=== PATIENT | male | born 1985 | race Hispanic/Latino ===

== ENCOUNTER 2016-10-22 15:34 | Inpatient (IN) | payer BC ==
[2016-10-22] MEDS ORDERED: Famotidine 20mg/50ml 20 MG/50 ML BAG IV STA (15:45)
[2016-10-22] MEDS ORDERED: Sodium Chloride 0.9% 1,000 ML IV STA (15:45)
[2016-10-22 15:49] VITALS: BMI 23.7
--- NOTE | 2016-10-22 16:03 | ED PDOC ---
Arrival/HPI <Mitesh Leslie - Last Filed: 10/22/16 19:41> - General Historian: Patient, Parent - History of Present Illness Time/Duration: Prior to Arrival Symptom Onset: Sudden Symptom Course: Unchanged Quality: Aching Severity Level: 9 Activities at Onset: Other (working) Context: Work <Shorty Leon - Last Filed: 10/22/16 22:08> - General Chief Complaint: Trauma Time Seen by Provider: 10/22/16 15:44 - History of Present Illness Narrative History of Present Illness (Text): 31 M with PMH of type 1 DM presents to ED for complaint of s/p fall. Patient was at work but doesn't remeber what specifically happened. As per patient and parents, patient was at work fell and hit his head. He did have LOC. Patient reports to this never happening before. He states that his headache rates 9-10/ 10 in severity. He described it as a constant throbbing pain in occipital region radiating to about c2 region. Nothing makes better or worse. Admits to nausea/vomiting. Denies fever/chills, cp, sob, palpitations, abd pain, diarrhea , constipation, incontinence, vertigo, dizziness/lightheadedness. PMD: None currently PMH: DM type 1 Meds: Insulin Allergy: Unknown PSH: denies Hosp: Denies FH: unknown Social: smokes tobacco daily, etoh occasionally, works at [employer] 10/22/16 18:01 (Shorty Leon) Past Medical History - Provider Review Nursing Documentation Reviewed: Yes - Travel History Have you recently traveled outside [place] w/in the past 3 mons?: No - Past History Past History: Unable to Obtain <Shorty Leon - Last Filed: 10/22/16 22:08> Family/Social History - Physician Review Nursing Documentation Reviewed: Yes Family/Social History: Unknown Family HX Smoking Status: Light Smoker < 10 Cigarettes Daily <Shorty Leon - Last Filed: 10/22/16 22:08> Allergies/Home Meds <Mitesh Leslie - Last Filed: 10/22/16 19:41> <Shorty Leon - Last Filed: 10/22/16 22:08> Allergies/Adverse Reactions: Allergies No Known Allergies Allergy (Verified 10/22/16 16:00) Home Medications: Home Meds Medication Instructions Recorded Confirmed Insulin Regular [HumuLIN R] 1 unit IJ 10/22/16 Insulin Human NPH [Humalin N] 25 units SC BID 10/22/16 10/22/16 Review of Systems - Review of Systems Constitutional: absent: Fatigue, Weight Change, Fevers, Night Sweats Eyes: absent: Vision Changes, Photophobia, Eye Pain, Other ENT: absent: Hearing Changes, Tinnitus, TMJ Pain, Sore Throat Respiratory: absent: SOB, Cough, Sputum, Wheezing Cardiovascular: Syncope. absent: Chest Pain, Palpitations, Calf Pain Gastrointestinal: Nausea, Vomiting, Hematemesis. absent: Abdominal Pain, Constipation, Diarrhea, Hematochezia, Food Intolerance Genitourinary Male: absent: Dysuria, Frequency, Hematuria Musculoskeletal: Arthralgias, Neck Pain. absent: Back Pain, Joint Swelling Skin: absent: Rash, Pruritis, Skin Lesions, Laceration Neurological: Headache. absent: Dizziness, Disequilibrium, Seizure Endocrine: Diaphoresis. absent: Polyuria, Polydipsia Hemo/Lymphatic: absent: Adenopathy, Easy Bleeding, Easy Bruising Psychiatric: absent: Anxiety, Depression, Suicidal Ideation <Shorty Leon - Last Filed: 10/22/16 22:08> Physical Exam <Mitesh Leslie - Last Filed: 10/22/16 19:41> Vital Signs Reviewed: Yes Temperature: Afebrile Blood Pressure: Hypertensive Pulse: Tachycardic Respiratory Rate: Normal Appearance: Positive for: Ill-Appearing, Uncomfortable Pain Distress: Moderate Mental Status: Positive for: Alert and Oriented X 3 - Systems Exam Head: Present: Normocephalic, Tenderness (occipital/neck) Pupils: Present: PERRL Extroacular Muscles: Present: EOMI Conjunctiva: Present: Normal Ears: Present: Normal Mouth: Present: Moist Mucous Membranes Pharnyx: Present: Normal Nose (External): Present: Atraumatic Neck: Present: MIDLINE TENDERNESS, Paraspinal Tenderness, Trachea Midline Respiratory/Chest: Present: Clear to Auscultation, Good Air Exchange Cardiovascular: Present: Normal S1, S2, Tachycardic Abdomen: Present: Normal Bowel Sounds. No: Tenderness, Distention, Peritoneal Signs, Rebound, Guarding Back: Present: Normal Inspection Upper Extremity: Present: NORMAL PULSES, Neurovascularly Intact, Capillary Refill < 2s Lower Extremity: Present: NORMAL PULSES, Neurovascularly Intact, Capillary Refill < 2 s Neurological: Present: GCS=15, CN II-XII Intact, Speech Normal, Motor Func Grossly Intact Skin: Present: Warm, Dry, Normal Color Lymphatic: No: Cervical Adenopathy, Axillary Adenopathy, Inguinal Adenopathy Psychiatric: Present: Alert, Oriented x 3, Anxious <Shorty Leon - Last Filed: 10/22/16 22:08> Vital Signs Temp Pulse Resp BP Pulse Ox 10/22/16 21:50 60 16 131/75 96 10/22/16 20:50 63 16 125/59 L 95 10/22/16 19:52 72 14 131/78 96 10/22/16 19:05 98.2 F 78 16 129/82 98 10/22/16 17:30 86 16 141/106 H 97 10/22/16 15:46 97.5 F L 100 H 24 153/99 H 98 Medical Decision Making <Mitesh Leslie - Last Filed: 10/22/16 19:41> - Lab Interpretations I have reviewed the lab results: Yes Interpretation: Abnormal lab values (anion gap closed and glucose came down) - EKG Interpretation Interpreted by ED Physician: Yes Type: 12 lead EKG Comparison: No previous EKG avail. <Shorty Leon - Last Filed: 10/22/16 22:08> ED Course and Treatment: Patient seen and examined with the resident. Came up with treatment plan and disposition together. 10/22/16 18:[address] Garcia, accepted to the MICU Dr. Carolyn Eastman, accepted to his service 10/22/16 19:41 downgraded to tele, seen by Dr. Eastman (Mitesh Leslie) IV Pepcid and Zofran given. EKG, CXR, CT head/neck, abd/pelvis, CArdic enzymes, lipase, CBC, CMP ordered. IV fluids given. EKG was NSR at 83 bpm. CXR showed no active disease. WBC elevated in CBC while CMP reveals anion gap acidosis and elevated glucose of 366 suggestive of DKA. UA and VBG shock panel ordered. Inital CMP showed anion gap with elevated glucose while VBG showed lactate of 2.5. After about 3 L of NS was given, CMP was repeated which showed the gap had closed and glucose had decreased. Patient was evaluated by [employer]. Upon discussion with Dr. Eastman and [employer] Manager, it was determined that patient would be admitted to telemetry. (Shorty Leon) - Lab Interpretations Lab Results: 10/22/16 15:50 10/22/16 18:40 Lab Results 10/22/16 18:40: Sodium 137, Potassium 3.9, Chloride 105, Carbon Dioxide 22, Anion Gap 14, BUN 10, Creatinine 0.7, Est GFR ( Amer) > 60, Est GFR (Non- Af Amer) > 60, Random Glucose 176 H, Calcium 8.3 L, Total Bilirubin 0.4, AST 65 H, ALT 31, Alkaline Phosphatase 81, Total Protein 6.5, Albumin 3.9, Globulin 2.6 , Albumin/Globulin Ratio 1.5 10/22/16 17:20: pO2 70 H, VBG pH 7.28 L, VBG pCO2 52.0, VBG HCO3 24.4, VBG Total CO2 26.0, VBG O2 Sat (Calc) 94.6 H, VBG Base Excess -3.0 L, VBG Potassium 4.0, Glucose 250 H, Lactate 2.5 H, FiO2 21.0, Sodium 138.0, Chloride 106.0, Venous Blood Potassium 4.0 10/22/16 15:50: Sodium 139, Potassium 3.9, Chloride 101, Carbon Dioxide 8 L, Anion Gap 34 H, BUN 9, Creatinine 0.9, Est GFR ( Amer) > 60, Est GFR (Non -Af Amer) > 60, Random Glucose 366 H*, Calcium 9.2, Total Bilirubin 0.5, AST 47 , ALT 24, Alkaline Phosphatase 112, Lactate Dehydrogenase 690, Total Creatine Kinase 404 H, CK-MB (CK-2) 2.8, CK-MB (CK-2) % Cancelled, Troponin I < 0.01, Total Protein 8.4 H, Albumin 5.2 H, Globulin 3.2, Albumin/Globulin Ratio 1.6, Lipase 152 10/22/16 15:50: PT 10.8, INR 1.00, APTT 27.1 10/22/16 15:50: WBC 13.5 H, RBC 4.67, Hgb 15.3, Hct 44.7, MCV 95.7, MCH 32.8, MCHC 34.2, RDW 12.8, Plt Count 224, MPV 11.1 H, Gran % 62.3, Lymph % (Auto) 29.2 , Island % (Auto) 8.0 H, Eos % (Auto) 0.4 L, Baso % (Auto) 0.1, Gran # 8.37 H, Lymph # 3.9 H, Island # 1.1 H, Eos # 0.1, Baso # 0.02 - RAD Interpretation Narrative RAD Interpretations (Text): CXR: no active disease Head CT, Abd/pelvis CT, Cervical spine CT: unremarkable (Shorty Leon) Radiology Orders: 10/22/16 15:45 ABD & PELVIS IV CONTRAST ONLY [CT] Stat HEAD W/O CONTRAST [CT] Stat 10/22/16 15:46 CHEST PORTABLE [RAD] Stat 10/22/16 16:07 CERVICAL SPINE W/O CONTRAST [CT] Stat - EKG Interpretation EKG Interpretation (Text): NSR @ 83 bpm (Shorty Leon) - Medication Orders Current Medication Orders: Cyclobenzaprine HCl (Flexeril) 5 mg PO TID PRN PRN Reason: Muscle spasm Last Admin: 10/22/16 21:44 Dose: 5 mg Enoxaparin Sodium (Lovenox) 40 mg SC DAILY DIMITRI PRN Reason: Protocol Sodium Chloride (Sodium Chloride 0.9%) 1,000 mls @ 125 mls/hr IV .Q8H [facility] Last Admin: 10/22/16 20:20 Dose: 125 mls/hr Metoclopramide HCl (Reglan) 10 mg IVP Q6H PRN PRN Reason: Nausea/Vomiting Morphine Sulfate (Morphine) 2 mg IVP Q4H PRN PRN Reason: Pain, severe (8-10) Last Admin: 10/22/16 20:18 Dose: 2 mg Pantoprazole Sodium (Protonix Inj) 40 mg IVP 0600 [facility] Discontinued Medications Acetaminophen (Tylenol 325mg Tab) 650 mg PO Q6H PRN PRN Reason: Pain, Mild (1-3) Famotidine (Pepcid 20mg/50ml Premix) 20 mg in 50 mls @ 100 mls/hr IV STAT STA Stop: 10/22/16 16:14 Last Admin: 10/22/16 16:01 Dose: 100 mls/hr Sodium Chloride (Sodium Chloride 0.9%) 1,000 mls @ 1,000 mls/hr IV .Q1H [facility] Stop: 10/22/16 16:44 Last Admin: 10/22/16 16:02 Dose: 1,000 mls/hr Sodium Chloride (Sodium Chloride 0.9%) 2,000 mls @ 1,000 mls/hr IV .Q2H [facility] Stop: 10/22/16 19:11 Last Admin: 10/22/16 17:49 Dose: 1,000 mls/hr Dextrose/Sodium Chloride (Dextrose 5%/0.45% Ns 1000 Ml) 1,000 mls @ 125 mls/hr IV .Q8H [facility] Insulin Human Regular 100 (units/ Sodium Chloride) 100 mls @ 2 mls/hr IV .Q24H PRN; Protocol; 2 UNITS/HR PRN Reason: TITRATE PER MD ORDER Potassium Chloride (Potassium Chloride 10 Meq/100 Ml) 10 meq in 100 mls @ 100 mls/hr IVPB Q2H [facility] Stop: 10/22/16 22:29 Insulin Human Regular (Humulin R) 10 units IV ONCE ONE Stop: 10/22/16 18:32 Last Admin: 10/22/16 18:56 Dose: Not Given Non-Admin Reason: Blood Sugar Parameter Iohexol (Omnipaque 350 100 Ml) Confirm Administered Dose 350 mg .ROUTE .STK-MED ONE Stop: 10/22/16 17:11 Ondansetron HCl (Zofran Inj) 4 mg IVP STAT STA Stop: 10/22/16 15:46 Last Admin: 10/22/16 16:02 Dose: 4 mg Oxycodone/Acetaminophen (Percocet 5/325 Mg Tab) 1 tab PO Q4H PRN PRN Reason: Pain, moderate (4-7) Stop: 10/25/16 19:06 Disposition/Present on Arrival - Present on Arrival Any Indicators Present on Arrival: No - Disposition Have Diagnosis and Disposition been Completed?: Yes Disposition Time: 18:54 Patient Plan: Admission <Mitesh Leslie - Last Filed: 10/22/16 19:41> <Shorty Leon - Last Filed: 10/22/16 22:08> - Disposition Diagnosis: DKA (diabetic ketoacidoses) Disposition: HOSPITALIZED Patient Problems: Current Active Problems Problem Status Onset DKA (diabetic ketoacidoses) Acute Condition: FAIR
[2016-10-22 16:04] LABS: BASO # 0.02 K/mm3 (0.0-2.0); BASO % 0.1 % (0.0-3.0); EOS # 0.1 (0.0-0.7); EOS % 0.4 % (1.5-5.0); GRAN # 8.37 (1.4-6.5); GRAN % 62.3 % (50.0-68.0); HEMOGLOBIN 15.3 gm/dL (14.0-18.0); LYMPH # 3.9 (1.2-3.4); LYMPH % 29.2 % (22.0-35.0); MEAN CELL VOLUME 95.7 fL (80.0-105.0); MEAN CORPUSCULAR HEMOGLOBIN 32.8 pg (25.0-35.0); MEAN CORPUSCULAR HGB CONC 34.2 g/dl (31.0-37.0); MEAN PLATELET VOLUME 11.1 fl (7.0-11.0); MONO # 1.1 (0.1-0.6); PLATELET COUNT 224 10^3/uL (120.0-450.0); RBC 4.67 10^6/uL (3.5-6.1); RED CELL DISTRIBUTION WIDTH 12.8 % (11.5-14.5); WHITE BLOOD COUNT 13.5 10^3/ul (4.5-11.0)
[2016-10-22 16:13] LABS: PARTIAL THROMBOPLASTIN TIME 27.1 Seconds (23.7-30.8); PROTHROMBIN TIME 10.8 Seconds (9.9-11.8)
[2016-10-22 16:16] LABS: ALB/GLOB RATIO 1.6 (1.1-1.8); ALBUMIN 5.2 g/dL (3.0-4.8); ALT/SGPT 24 U/L (7-56); AST/SGOT 47 U/L (15-59); BLOOD UREA NITROGEN 9 mg/dL (7-21); CALCIUM 9.2 mg/dL (8.4-10.5); GFR AFRICAN-AMERICAN > 60; GFR NON-AFRICAN AMERICAN > 60; LIPASE 152 U/L (23-300)
[2016-10-22 16:32] LABS: CK-MB 2.8 ng/mL (0.0-3.6); TROPONIN I < 0.01 ng/mL
--- NOTE | 2016-10-22 16:55 | RAD ---
HISTORY: Cough. Portable study 15:55. COMPARISON: None. FINDINGS: LUNGS: No active pulmonary disease. PLEURA: No significant pleural effusion identified, no pneumothorax apparent. CARDIOVASCULAR: Normal. OSSEOUS STRUCTURES: No significant abnormalities. VISUALIZED UPPER ABDOMEN: Normal. OTHER FINDINGS: None. IMPRESSION: No active disease.
[2016-10-22] MEDS ORDERED: Iohexol 350 MG/100 ML VIAL ONE (17:10)
[2016-10-22] MEDS ORDERED: Sodium Chloride 0.9% 2,000 ML IV STA (17:12)
[2016-10-22 17:39] LABS: VENOUS BLOOD GAS PO2 70 mm/Hg (30-55); VENOUS BLOOD PH 7.28 (7.32-7.43)
--- NOTE | 2016-10-22 17:48 | CT ---
PROCEDURE: CT HEAD WITHOUT CONTRAST. HISTORY: n/v/MCGINNIS COMPARISON: None available. TECHNIQUE: Axial computed tomography images were obtained through the head/brain without intravenous contrast. Radiation dose: Total exam DLP = 853.15 mGy-cm. This CT exam was performed using one or more of the following dose reduction techniques: Automated exposure control, adjustment of the mA and/or kV according to patient size, and/or use of iterative reconstruction technique. FINDINGS: HEMORRHAGE: No intracranial hemorrhage. BRAIN: No mass effect or edema. No atrophy or chronic microvascular ischemic changes. VENTRICLES: Unremarkable. No hydrocephalus. CALVARIUM: Unremarkable. PARANASAL SINUSES: Unremarkable as visualized. No significant inflammatory changes. MASTOID AIR CELLS: Unremarkable as visualized. No inflammatory changes. OTHER FINDINGS: None. IMPRESSION: Normal CT of the Head.
--- NOTE | 2016-10-22 17:56 | CT ---
PROCEDURE: CT Cervical Spine without contrast HISTORY: Trauma, altered mental status COMPARISON: None available. TECHNIQUE: Axial computed tomography images were obtained of the cervical spine without the use of intravenous contrast. Coronal and sagittal reformatted images were created and reviewed. Radiation dose: Total exam DLP = 543.73 mGy-cm. This CT exam was performed using one or more of the following dose reduction techniques: Automated exposure control, adjustment of the mA and/or kV according to patient size, and/or use of iterative reconstruction technique. FINDINGS: VERTEBRAE: No fracture. Normal alignment. No destructive bony lesion. DISCS/SPINAL CANAL/NEURAL FORAMINA: No significant central canal or neural foraminal stenosis. Discs heights are grossly preserved. PARASPINAL SOFT TISSUES: Unremarkable. OTHER FINDINGS: None. IMPRESSION: Unremarkable CT of the cervical spine.
--- NOTE | 2016-10-22 18:01 | CT ---
PROCEDURE: CT Abdomen and Pelvis with contrast HISTORY: Abdominal pain. Site unspecified COMPARISON: None. TECHNIQUE: Contrast dose: 100 cc Omnipaque 350 Radiation dose: Total exam DLP = 550.18 mGy-cm. This CT exam was performed using one or more of the following dose reduction techniques: Automated exposure control, adjustment of the mA and/or kV according to patient size, and/or use of iterative reconstruction technique. FINDINGS: LOWER THORAX: Unremarkable. LIVER: Unremarkable. No gross lesion or ductal dilatation. GALLBLADDER AND BILE DUCTS: Unremarkable. PANCREAS: Unremarkable. No gross lesion or ductal dilatation. SPLEEN: Unremarkable. ADRENALS: Unremarkable. No mass. KIDNEYS AND URETERS: Unremarkable. No hydronephrosis. No solid mass. VASCULATURE: Unremarkable. No aortic aneurysm. BOWEL: Unremarkable. No obstruction. No gross mural thickening. Constipation without fecal impaction or obstruction. APPENDIX: Normal appendix. PERITONEUM: Unremarkable. No free fluid. No free air. LYMPH NODES: Unremarkable. No enlarged lymph nodes. BLADDER: Unremarkable. REPRODUCTIVE: Unremarkable. BONES: No acute fracture. OTHER FINDINGS: None. IMPRESSION: No acute findings related to/accounting for the clinical presentation. Limitations of the current examination: Absence of oral contrast in individual with this degree of body fat and estimated body mass index
[2016-10-22] MEDS ORDERED: Insulin Regular 1 UNITS/0.01 ML ML IV ONE (18:31)
[2016-10-22] MEDS ORDERED: Oxycodone/Acetaminophen 5/325 mg Tab PO PRN (19:05)
[2016-10-22 19:13] LABS: ALB/GLOB RATIO 1.5 (1.1-1.8); ALBUMIN 3.9 g/dL (3.0-4.8); ALT/SGPT 31 U/L (7-56); AST/SGOT 65 U/L (15-59); BLOOD UREA NITROGEN 10 mg/dL (7-21); CALCIUM 8.3 mg/dL (8.4-10.5); GFR AFRICAN-AMERICAN > 60; GFR NON-AFRICAN AMERICAN > 60
[2016-10-22] MEDS ORDERED: Dextrose 5%/0.45% NS 1,000 ML IV SCH (19:15)
[2016-10-22] MEDS ORDERED: Insulin Regular 100 UNITS in Sodium Chloride 0.9% 99 ML IV PRN (19:16)
--- NOTE | 2016-10-22 19:51 | CP.PCM.CON ---
History of Present Illness - History of Present Illness History of Present Illness: Initial plan was to admit patient to ICU given severe Metabolic Acidosis of unclear etiology; However, repeat chemistry results indicate resolution of metabolic acidosis. Therefore, patient doesn't actually need ICU level of care given these new findings. Consequently, he will be admitted to the telemetery [facility] instead for further work-up of syncope vs seizure. Full consult note to follow Past Patient History - Infectious Disease Hx of Infectious Diseases: None - Past Social History Smoking Status: Light Smoker < 10 Cigarettes Daily - ENDOCRINE/METABOLIC Hx Diabetes Mellitus Type 1: Yes Hx Hypothyroidism: Yes - PSYCHIATRIC Hx Substance Use: No Meds Allergies/Adverse Reactions: Allergies Allergy/AdvReac Type Severity Reaction Status Date / Time No Known Allergies Allergy Verified 10/22/16 16:00 - Medications Medications: Current Medications Enoxaparin Sodium (Lovenox) 40 mg SC DAILY DIMITRI PRN Reason: Protocol Potassium Chloride (Potassium Chloride 10 Meq/100 Ml) 10 meq in 100 mls @ 100 mls/hr IVPB Q2H [facility] Stop: 10/22/16 22:29 Sodium Chloride (Sodium Chloride 0.9%) 1,000 mls @ 125 mls/hr IV .Q8H [facility] Metoclopramide HCl (Reglan) 10 mg IVP Q6H PRN PRN Reason: Nausea/Vomiting Morphine Sulfate (Morphine) 2 mg IVP Q4H PRN PRN Reason: Pain, severe (8-10) Pantoprazole Sodium (Protonix Inj) 40 mg IVP 0600 [facility] Results - Vital Signs Recent Vital Signs: Last Vital Signs Temp 98.2 F 10/22/16 19:05 Pulse 78 10/22/16 19:05 Resp 16 10/22/16 19:05 BP 129/82 10/22/16 19:05 Pulse Ox 98 10/22/16 19:05 - Labs Result Diagrams: 10/22/16 15:50 10/22/16 18:40
[2016-10-22] MEDS ORDERED: Sodium Chloride 0.9% 1,000 ML IV SCH (20:00)
[2016-10-22] MEDS: Morphine 2 mg/ml ISec IVP PRN (20:18)
[2016-10-22 20:31] LABS: VENOUS BLOOD GAS BASE EXCESS -2.2 mmol/L (0.0-2.0); VENOUS BLOOD GAS PO2 195 mm/Hg (30-55); VENOUS BLOOD PH 7.36 (7.32-7.43)
[2016-10-22 20:44] LABS: MAGNESIUM 2.1 mg/dL (1.7-2.2)
[2016-10-22 20:57] LABS: TROPONIN I < 0.01 ng/mL
[2016-10-22 20:59] LABS: CK MB% 0.7 % (2.5-3.0); CK-MB 8.7 ng/mL (0.0-3.6)
[2016-10-22] MEDS ORDERED: Potassium Phosphate 15 MMOLE in Dextrose 5% In Water 250 ML IVPB ONE (22:05)
--- NOTE | 2016-10-22 22:40 | CP.PCM.HP ---
<PrabhuLuís Yoan - Last Filed: 10/23/16 00:51> History of Present Illness - History of Present Illness History of Present Illness: Luís Pelletier DO PGY-1 CC: Fall HPI: Mr. Pitt is a 31 y/o male with a pertinent PMHx significant for IDDM who presented with a c/o falling. Mr. Pitt stated that he was at work, did not recall falling but recalled waking up on the floor surrounded by one of his colleagues. He stated that when he woke up, he noticed he had bitten his tongue. He also noted that he did hit his head and that he had an abrasion on the top of his scalp. In the ambulance on the way to the hospital, he started vomiting violently, but denies any hematemesis. Patient further stated that he was having severe back and neck pain, but he did not recall if this started after his fall or after his episode of violent vomiting. Patient denied bowel/bladder loss. Patient denied any fevers, chills, nausea, diarrhea, chest pain, loss of sensation, confusion, change in bowel habits, or other symptoms at this time. PMHx: Hypothyroidism; PSHx: None Allergies: NKDA SocHx: Occasional EtOH; former smoker; occasional leatha forte FamHx: DM; Lung CA Meds: Levothyroxine; Humulin; Humalog Present on Admission - Present on Admission Any Indicators Present on Admission: No Review of Systems - Review of Systems Review of Systems: ROS: Constitutional: pt denies fever, chills, generalized weakness Head: +patient admits headache; ENT: pt denies dysphagia, ofalgia, hearing deficit, rhinorrhea Eyes: pt denies sudden loss of vision, diplopia, blurred vision MSK: +pt admits neck stiffness and back stiffnes; pt denies joint pain, extremity cramping Cardio: pt denies cp, sob, dvt Pulm: pt denies cough, hemoptysis, wheeze GI: pt denies loss of appetite, abdominal pain, constipation, melena, n/v/d : pt denies burning on urination, urinary frequency, hematuria, urinary urgency Neuro: pt denies paresis, paresthesia, dizziness, crabtree, numbness, tingling Derm: pt denies skin changes, lesions, nail changes Endo: pt denies intolerance to heat/cold, diaphoresis, night sweats, polydipsia Psych: pt denies anxiety, depression, mood changes Past Patient History - Infectious Disease Hx of Infectious Diseases: None - Past Social History Smoking Status: Light Smoker < 10 Cigarettes Daily - ENDOCRINE/METABOLIC Hx Diabetes Mellitus Type 1: Yes Hx Hypothyroidism: Yes - PSYCHIATRIC Hx Substance Use: No Meds Allergies/Adverse Reactions: Allergies Allergy/AdvReac Type Severity Reaction Status Date / Time No Known Allergies Allergy Verified 10/22/16 16:00 Physical Exam - Additional Findings Additional findings: Physical Exam: VS: As above Constitutional: well appearing male, a&o x 4, nad Head and Neck: +neck pain upon arousal, +mild abrasion on top of scalp; no jvd, trachea midline, carotid midline, no cervical/head mass Eyes: shaan, nonicteric sclera, eom intact ENT: auditory acuity grossly intact, throat not congested, no nasal deformity Cardio: rrr, no m/r/g, no carotid bruit, nml s1, s2 Pulm: no accessory muscle use, equal nml breath sounds bilaterally, ctab Abd: s/nt/nd, nbs x 4 q, no palpable masses Derm: no rashes, no ulcers, no lesions Extr: no edema, no cyanosis, no calf tenderness, no lesions, no varicosities Neuro: cn II-XII grossly intact, ue and le 3+ muscle strength bilaterally, no los ue, le bilaterally and core Results - Vital Signs Recent Vital Signs: Last Vital Signs Temp 98.2 F 10/22/16 19:05 Pulse 60 10/22/16 21:50 Resp 16 10/22/16 21:50 BP 131/75 10/22/16 21:50 Pulse Ox 96 10/22/16 21:50 - Labs Result Diagrams: 10/22/16 15:50 10/22/16 18:40 Labs: Laboratory Results - last 24 hr 10/22/16 10/22/16 10/22/16 20:10 20:10 20:10 pO2 VBG pH VBG pCO2 VBG HCO3 VBG Total CO2 VBG O2 Sat (Calc) VBG Base Excess VBG Potassium Sodium Cancelled Chloride Cancelled Glucose Lactate FiO2 Potassium Cancelled Carbon Dioxide Cancelled Anion Gap Cancelled BUN Cancelled Est GFR ( Amer) Cancelled Est GFR (Non-Af Amer) Cancelled Random Glucose Cancelled Lactic Acid 0.9 Calcium Cancelled Phosphorus 2.0 L Magnesium 2.1 Ammonia < 9 L Total Creatine Kinase 1280 H CK-MB (CK-2) 8.7 H CK-MB (CK-2) % 0.7 L Troponin I < 0.01 Venous Blood Potassium 10/22/16 20:10 pO2 195 H VBG pH 7.36 VBG pCO2 41.0 VBG HCO3 23.2 VBG Total CO2 24.5 VBG O2 Sat (Calc) 99.7 H VBG Base Excess -2.2 L VBG Potassium 3.9 Sodium 137.0 Chloride 111.0 H Glucose 173 H Lactate 0.9 FiO2 21.0 Potassium Carbon Dioxide Anion Gap BUN Est GFR ( Amer) Est GFR (Non-Af Amer) Random Glucose Lactic Acid Calcium Phosphorus Magnesium Ammonia Total Creatine Kinase CK-MB (CK-2) CK-MB (CK-2) % Troponin I Venous Blood Potassium 3.9 Assessment & Plan - Assessment and Plan (Free Text) Plan: A/P: Mr. Pitt is a 31 y/o male with a pertinent PMHx significant for IDDM who presented with a c/o falling. 1.) Syncope with head injury - Cardio c/s: Dr. Alvarado - ECHO ordered - EKG shows: NSR - Tropes: Negative X 1; trend - MRI Brain with gadolinium - CT Cervical Spine - ASA, morphine was given 2.) Uncontrolled Diabetes - Endo c/s: Dr. Marta Sebastian - FS glucose ordered - Repeat chemistry ordered - CMP - VBG ordered - Home Insulin ordered 3.) Possible Seizure - Neuro c/s: Dr. Rea Mae - MRI brain with Gadolinium ordered - EEG ordered 4.) Possible Rhabdomyolysis - Creatinine Kinase ordered - UA ordered - IVF: NS 4L at 150 cc/hr - IV Dilaudid at .5mg q4 prn ordered 5.) SIRS Criteria - Lactate elevated, HR elevated, RR elevated, WBC elevated - Monitor labs, monitor vitals - No source of infection at current time 6.) DVT PPHXS -SCD's 7.) GI PPHXS - Protonix <Vikash Eastman U - Last Filed: 10/24/16 08:23> Results - Vital Signs Recent Vital Signs: Last Vital Signs Temp 98.2 F 10/22/16 19:05 Pulse 60 10/22/16 21:50 Resp 16 10/22/16 21:50 BP 131/75 10/22/16 21:50 Pulse Ox 96 10/22/16 21:50 - Labs Result Diagrams: 10/24/16 05:30 10/24/16 05:30 Labs: Laboratory Results - last 24 hr 10/22/16 10/22/16 10/22/16 20:10 20:10 20:10 pO2 VBG pH VBG pCO2 VBG HCO3 VBG Total CO2 VBG O2 Sat (Calc) VBG Base Excess VBG Potassium Sodium Cancelled Chloride Cancelled Glucose Lactate FiO2 Potassium Cancelled Carbon Dioxide Cancelled Anion Gap Cancelled BUN Cancelled Est GFR ( Amer) Cancelled Est GFR (Non-Af Amer) Cancelled Random Glucose Cancelled Lactic Acid 0.9 Calcium Cancelled Phosphorus 2.0 L Magnesium 2.1 Ammonia < 9 L Total Creatine Kinase 1280 H CK-MB (CK-2) 8.7 H CK-MB (CK-2) % 0.7 L Troponin I < 0.01 Venous Blood Potassium 10/22/16 20:10 pO2 195 H VBG pH 7.36 VBG pCO2 41.0 VBG HCO3 23.2 VBG Total CO2 24.5 VBG O2 Sat (Calc) 99.7 H VBG Base Excess -2.2 L VBG Potassium 3.9 Sodium 137.0 Chloride 111.0 H Glucose 173 H Lactate 0.9 FiO2 21.0 Potassium Carbon Dioxide Anion Gap BUN Est GFR ( Amer) Est GFR (Non-Af Amer) Random Glucose Lactic Acid Calcium Phosphorus Magnesium Ammonia Total Creatine Kinase CK-MB (CK-2) CK-MB (CK-2) % Troponin I Venous Blood Potassium 3.9 Assessment & Plan - Assessment and Plan (Free Text) Assessment: PATIENT SEEN AND EXAMINED IN ER BED #2, FAMILY AT BEDSIDE A/P; SYNCOPE ?SEIZURE S/P FALL UNCONTROLLED IDDM WITH HYPERGLYCEMIA RHABDOMYOLYSIS LEUCOCYTOSIS SIRS TACHYPNEA CERVICAL SPINE SPRAIN VS CONTUSION INCREASED AG METABOLIC ACIDOSIS LACTIC ACIDOSIS HYPOPHOSPHETEMIA. PLANS PER ORDERS. PATIENT AND FAMILY EXPLAINED ALL DETAILS
[2016-10-22] MEDS ORDERED: Lidocaine 5% Patch TD STA (23:33)
[2016-10-23 00:16] LABS: PH,URINE 5.5 (4.7-8.0); URINE BILIRUBIN NEGATIVE (NEGATIVE); URINE BLOOD NEGATIVE (NEGATIVE); URINE GLUCOSE (UA) 500 mg/dL (NEGATIVE); URINE LEUKOCYTE ESTERASE NEGATIVE Leu/uL (NEGATIVE); URINE NITRATE NEGATIVE (NEGATIVE); URINE PROTEIN NEGATIVE mg/dL (<30 mg/dL); URINE UROBILINOGEN 0.2 E.U./dL (<1 E.U./dL)
[2016-10-23 00:18] LABS: URINE APPEARANCE CLEAR (CLEAR); URINE COLOR YELLOW (YELLOW)
[2016-10-23 00:28] LABS: BARBITURATES, UR NEGATIVE (NEGATIVE); BENZODIAZEPINES, UR NEGATIVE (NEGATIVE); OPIATES, UR POSITIVE (NEGATIVE); PHENCYCLIDINE, UR NEGATIVE (NEGATIVE)
[2016-10-23] MEDS: Morphine 2 mg/ml ISec IVP PRN (00:39)
[2016-10-23 00:49] LABS: VENOUS BLOOD GAS BASE EXCESS -3.2 mmol/L (0.0-2.0); VENOUS BLOOD GAS PO2 62 mm/Hg (30-55); VENOUS BLOOD PH 7.33 (7.32-7.43)
[2016-10-23] MEDS: HYDROmorphone 0.5 mg/0.5 ml ISec IVP PRN ×3 (04:28→21:37)
[2016-10-23] MEDS: Thiamine 100 mg/ml Inj IV SCH ×3 (05:58→11:18)
[2016-10-23] MEDS ORDERED: Insulin Regular 1 UNITS/0.01 ML ML IV STA (06:16)
[2016-10-23] MEDS ORDERED: levETIRAcetam 1,000 MG in Sodium Chloride 0.9% 100 ML IV ONE (06:25)
[2016-10-23] MEDS ORDERED: Sodium Phosphate 15 MMOLE in Sodium Chloride 0.9% 250 ML IVPB ONE (06:32)
--- NOTE | 2016-10-23 06:42 | CP.PCM.PN ---
Subjective - Date & Time of Evaluation Date of Evaluation: 10/23/16 Time of Evaluation: 06:42 - Subjective Subjective: Discussed with . See orderes. Objective - Vital Signs/Intake and Output Vital Signs (last 24 hours): Temp Pulse Resp BP Pulse Ox 98.2 F 74 18 133/72 96 10/23/16 04:00 10/23/16 04:00 10/23/16 04:00 10/23/16 04:00 10/22/16 21:50 Intake and Output: 10/22/16 10/23/16 18:59 06:59 Intake Total 290 Output Total 1625 Balance -1335 - Medications Medications: Current Medications Cyclobenzaprine HCl (Flexeril) 5 mg PO TID PRN PRN Reason: Muscle spasm Last Admin: 10/22/16 21:44 Dose: 5 mg Enoxaparin Sodium (Lovenox) 40 mg SC DAILY [facility] PRN Reason: Protocol Ergocalciferol (Drisdol 50,000 Intl Units Cap) 1 cap PO Q7D [facility] Folic Acid (Folic Acid) 1 mg PO DAILY [facility] Last Admin: 10/23/16 06:38 Dose: Not Given Hydromorphone HCl (Dilaudid) 0.5 mg IVP Q4H PRN PRN Reason: Muscle spasm Last Admin: 10/23/16 04:28 Dose: 0.5 mg Sodium Bicarbonate 50 meq/ (Sodium Chloride) 1,050 mls @ 150 mls/hr IV .Q7H [facility] Stop: 10/24/16 11:29 Last Admin: 10/23/16 04:30 Dose: 150 mls/hr Levetiracetam 500 mg/ Sodium (Chloride) 105 mls @ 420 mls/hr IV Q12 [facility] Insulin Detemir (Levemir) 20 unit SC HS [facility] Insulin Human Lispro (Humalog) 6 units SC AC [facility] Insulin Human Lispro (Humalog Low) 0 units SC ACHS [facility] PRN Reason: Protocol Lidocaine (Lidoderm) 1 ea TD DAILY [facility] Metoclopramide HCl (Reglan) 10 mg IVP Q6H [facility] Last Admin: 10/23/16 05:30 Dose: 10 mg Nicotine (Nicoderm Cq) 1 patch TD DAILY [facility] Ondansetron HCl (Zofran Inj) 4 mg IVP Q4H PRN PRN Reason: Nausea/Vomiting Last Admin: 10/23/16 00:39 Dose: 4 mg Pantoprazole Sodium (Protonix Inj) 40 mg IVP 0600 [facility] Last Admin: 10/23/16 05:26 Dose: 40 mg Thiamine HCl (Vitamin B1 Inj) 100 mg IV DAILY [facility] Last Admin: 10/23/16 06:30 Dose: Not Given - Labs Labs: 10/22/16 20:10 PT 10.8 Seconds (9.9-11.8) 10/22/16 15:50 INR 1.00 (0.93-1.08) 10/22/16 15:50 APTT 27.1 Seconds (23.7-30.8) 10/22/16 15:50
--- NOTE | 2016-10-23 07:02 | CP.PCM.PN ---
"<Luís Pelletier - Last Filed: 10/23/16 07:16> Subjective - Date & Time of Evaluation Date of Evaluation: 10/23/16 Time of Evaluation: 06:00 - Subjective Subjective: Rapid response was called at 0600, and was responded to right away. Pt was s&e bedside, per nursing was lethargic and on exam was restless. Vitals were: 98%|98.1|66|20|128/61 Pt. seized and became agitated, was diaphoretic, and was foaming at the mouth. Pt. fingerstick glc was taken, read as 339 2 mg ativan were given IV and patient calmed down. Stat AM labs were ordered, patient was resting comfortably Objective - Vital Signs/Intake and Output Vital Signs (last 24 hours): Temp Pulse Resp BP Pulse Ox 98.2 F 74 18 133/72 96 10/23/16 04:00 10/23/16 04:00 10/23/16 04:00 10/23/16 04:00 10/22/16 21:50 Intake and Output: 10/22/16 10/23/16 18:59 06:59 Intake Total 290 Output Total 1625 Balance -1335 - Medications Medications: Current Medications Cyclobenzaprine HCl (Flexeril) 5 mg PO TID PRN PRN Reason: Muscle spasm Last Admin: 10/22/16 21:44 Dose: 5 mg Enoxaparin Sodium (Lovenox) 40 mg SC DAILY [facility] PRN Reason: Protocol Ergocalciferol (Drisdol 50,000 Intl Units Cap) 1 cap PO Q7D [facility] Folic Acid (Folic Acid) 1 mg PO DAILY [facility] Last Admin: 10/23/16 06:38 Dose: Not Given Hydromorphone HCl (Dilaudid) 0.5 mg IVP Q4H PRN PRN Reason: Muscle spasm Last Admin: 10/23/16 04:28 Dose: 0.5 mg Sodium Bicarbonate 50 meq/ (Sodium Chloride) 1,050 mls @ 150 mls/hr IV .Q7H [facility] Stop: 10/24/16 11:29 Last Admin: 10/23/16 04:30 Dose: 150 mls/hr Levetiracetam 500 mg/ Sodium (Chloride) 105 mls @ 420 mls/hr IV Q12 [facility] Insulin Detemir (Levemir) 20 unit SC HS [facility] Insulin Human Lispro (Humalog) 6 units SC AC [facility] Insulin Human Lispro (Humalog Low) 0 units SC ACHS [facility] PRN Reason: Protocol Lidocaine (Lidoderm) 1 ea TD DAILY [facility] Metoclopramide HCl (Reglan) 10 mg IVP Q6H [facility] Last Admin: 10/23/16 05:30 Dose: 10 mg Nicotine (Nicoderm Cq) 1 patch TD DAILY [facility] Ondansetron HCl (Zofran Inj) 4 mg IVP Q4H PRN PRN Reason: Nausea/Vomiting Last Admin: 10/23/16 00:39 Dose: 4 mg Pantoprazole Sodium (Protonix Inj) 40 mg IVP 0600 [facility] Last Admin: 10/23/16 05:26 Dose: 40 mg Thiamine HCl (Vitamin B1 Inj) 100 mg IV DAILY [facility] Last Admin: 10/23/16 06:30 Dose: Not Given - Labs Labs: 10/22/16 20:10 PT 10.8 Seconds (9.9-11.8) 10/22/16 15:50 INR 1.00 (0.93-1.08) 10/22/16 15:50 APTT 27.1 Seconds (23.7-30.8) 10/22/16 15:50 - Constitutional Appears: In Acute Distress, Agitated, Confused - Head Exam Head Exam: ATRAUMATIC Additional comments: Patient had a head abrasion from a prior injury - Eye Exam Pupil Exam: Fixed - Respiratory Exam Respiratory Exam: absent: Accessory Muscle Use, Respiratory Distress Additional comments: CTAB - Cardiovascular Exam Cardiovascular Exam: REGULAR RHYTHM, RRR, +S1, +S2 - GI/Abdominal Exam GI & Abdominal Exam: Soft. absent: Tenderness, Diminished Bowel Sounds - Rectal Exam Rectal Exam: Deferred - Extremities Exam Extremities Exam: Full ROM Assessment and Plan - Assessment and Plan (Free Text) Assessment: A/P 1.) Seizure 2.) DKA 3.) Uncontrolled Diabetes 4.) Possible Rhabdomyolysis - 2 mg ativan given, 8 U insulin given - case d/w neurologist, Dr. Mae: ====> mri with contrast ordered ====> EEG ordered - message left for Dr. Eastman <Key Kellogg - Last Filed: 10/23/16 22:29> Objective - Vital Signs/Intake and Output Vital Signs (last 24 hours): Temp Pulse Resp BP Pulse Ox 98.2 F 75 14 133/72 98 10/23/16 12:38 10/23/16 19:30 10/23/16 19:30 10/23/16 04:00 10/23/16 19:30 Intake and Output: 10/23/16 10/24/16 18:59 06:59 Intake Total 2500 Output Total 900 Balance 1600 - Medications Medications: Current Medications Cyclobenzaprine HCl (Flexeril) 5 mg PO TID PRN PRN Reason: Muscle spasm Last Admin: 10/22/16 21:44 Dose: 5 mg Enoxaparin Sodium (Lovenox) 40 mg SC DAILY [facility] PRN Reason: Protocol Last Admin: 10/23/16 11:22 Dose: 40 mg Ergocalciferol (Drisdol 50,000 Intl Units Cap) 1 cap PO Q7D [facility] Folic Acid (Folic Acid) 1 mg PO DAILY [facility] Last Admin: 10/23/16 11:15 Dose: 1 mg Hydromorphone HCl (Dilaudid) 0.5 mg IVP Q4H PRN PRN Reason: Muscle spasm Last Admin: 10/23/16 21:37 Dose: 0.5 mg Levetiracetam (Keppra 500mg Ivpb) 500 mg in 100 mls @ 420 mls/hr IV Q12 [facility] Last Admin: 10/23/16 11:17 Dose: 420 mls/hr Piperacillin Sod/Tazobactam Sod (Zosyn 3.375 In Ns 100ml) 100 mls @ 200 mls/hr IVPB Q6 [facility] PRN Reason: Protocol Stop: 10/30/16 12:01 Last Admin: 10/23/16 18:07 Dose: 200 mls/hr Sodium Bicarbonate 50 meq/ (Sodium Chloride) 1,050 mls @ 200 mls/hr IV .Q5H15M [facility] Last Admin: 10/23/16 09:23 Dose: 200 mls/hr Vancomycin HCl (Vancomycin 1gm) 1 gm in 250 mls @ 167 mls/hr IVPB Q12H [facility] PRN Reason: Protocol Stop: 10/30/16 08:16 Last Admin: 10/23/16 19:37 Dose: 167 mls/hr Sodium Chloride (Sodium Chloride 0.9%) 1,000 mls @ 200 mls/hr IV .Q5H [facility] Insulin Detemir (Levemir) 20 unit SC HS [facility] Insulin Detemir (Levemir) 6 unit SC DAILY [facility] Insulin Human Lispro (Humalog) 6 units SC AC [facility] Last Admin: 10/23/16 18:00 Dose: Not Given Insulin Human Lispro (Humalog Low) 0 units SC ACHS [facility] PRN Reason: Protocol Last Admin: 10/23/16 18:10 Dose: Not Given Lidocaine (Lidoderm) 1 ea TD DAILY [facility] Metoclopramide HCl (Reglan) 10 mg IVP Q6H [facility] Last Admin: 10/23/16 18:10 Dose: Not Given Nicotine (Nicoderm Cq) 1 patch TD DAILY [facility] Ondansetron HCl (Zofran Inj) 4 mg IVP Q4H PRN PRN Reason: Nausea/Vomiting Last Admin: 10/23/16 00:39 Dose: 4 mg Pantoprazole Sodium (Protonix Inj) 40 mg IVP 0600 [facility] Last Admin: 10/23/16 05:26 Dose: 40 mg Thiamine HCl (Vitamin B1 Inj) 100 mg IV DAILY [facility] Last Admin: 10/23/16 11:18 Dose: 100 mg - Labs Labs: 10/23/16 06:43 10/23/16 16:40 PT 10.8 Seconds (9.9-11.8) 10/22/16 15:50 INR 1.00 (0.93-1.08) 10/22/16 15:50 APTT 27.1 Seconds (23.7-30.8) 10/22/16 15:50 Attending/Attestation - Attestation I have personally seen and examined this patient.: Yes I have fully participated in the care of the patient.: Yes I have reviewed all pertinent clinical information, including history, physical exam and plan: Yes Notes (Text): 10/23/16 22:29 Agree. Seen with biomedical equipment tech."
[2016-10-23 07:20] LABS: BASO # 0.01 K/mm3 (0.0-2.0); BASO % 0.1 % (0.0-3.0); EOS % 0.1 % (1.5-5.0); GRAN # 15.04 (1.4-6.5); GRAN % 84.2 % (50.0-68.0); HEMOGLOBIN 13.8 gm/dL (14.0-18.0); LYMPH # 1.4 (1.2-3.4); LYMPH % 7.7 % (22.0-35.0); MEAN CELL VOLUME 95.8 fL (80.0-105.0); MEAN CORPUSCULAR HEMOGLOBIN 32.2 pg (25.0-35.0); MEAN CORPUSCULAR HGB CONC 33.6 g/dl (31.0-37.0); MEAN PLATELET VOLUME 11.6 fl (7.0-11.0); MONO # 1.4 (0.1-0.6); MONO % 7.9 % (1.0-6.0); PLATELET COUNT 203 10^3/uL (120.0-450.0); RBC 4.29 10^6/uL (3.5-6.1); RED CELL DISTRIBUTION WIDTH 13.1 % (11.5-14.5); WHITE BLOOD COUNT 17.9 10^3/ul (4.5-11.0)
[2016-10-23 07:21] LABS: ALB/GLOB RATIO 1.7 (1.1-1.8); ALBUMIN 4.5 g/dL (3.0-4.8); ALT/SGPT 34 U/L (7-56); BLOOD UREA NITROGEN 11 mg/dL (7-21); CALCIUM 8.7 mg/dL (8.4-10.5); GFR AFRICAN-AMERICAN > 60; GFR NON-AFRICAN AMERICAN > 60; HDL CHOLESTEROL 66 mg/dL (29-60); MAGNESIUM 2.2 mg/dL (1.7-2.2)
[2016-10-23 07:27] LABS: AST/SGOT 83 U/L (15-59)
[2016-10-23] MEDS ORDERED: Insulin Lispro (humaLOG) MEDIUM Coverage SC SCH (07:30)
[2016-10-23 07:32] LABS: LDL CHOLESTEROL 63 mg/dL (0-129)
[2016-10-23 07:34] LABS: TROPONIN I < 0.01 ng/mL
[2016-10-23 07:50] LABS: CK MB% 0.4 % (2.5-3.0); CK-MB 11.5 ng/mL (0.0-3.6)
[2016-10-23 08:03] LABS: T4 9.1 ug/dL (5.5-11.0)
[2016-10-23] MEDS: Insulin Lispro 1 UNITS/0.01 ML SC SCH ×2 (08:36→18:00)
[2016-10-23] MEDS: Insulin Lispro (humaLOG) LOW Coverage SC SCH ×3 (08:37→23:27)
[2016-10-23] MEDS: Vancomycin 1gm in NS 250ml 1 GM/250 ML BAG IVPB SCH ×2 (08:39→19:37)
[2016-10-23] MEDS ORDERED: Sodium Chloride 0.9% 1,000 ML IV STA (09:09)
--- NOTE | 2016-10-23 09:42 | CP.PCM.CON ---
History of Present Illness - History of Present Illness History of Present Illness: Consult wriiten Imp: New Onset Seizure Hyperglycemia/?DKA Rec: MRI Brain EEG Patient was started on Keppra after patient had a seizure this AM- continue Seizure precautions. Control glucose. No meningeal sign. Past Patient History - Infectious Disease Hx of Infectious Diseases: None - Past Social History Smoking Status: Light Smoker < 10 Cigarettes Daily - ENDOCRINE/METABOLIC Hx Diabetes Mellitus Type 1: Yes Hx Hypothyroidism: Yes - MUSCULOSKELETAL/RHEUMATOLOGICAL Hx Falls: No - PSYCHIATRIC Hx Substance Use: No Meds Allergies/Adverse Reactions: Allergies Allergy/AdvReac Type Severity Reaction Status Date / Time No Known Allergies Allergy Verified 10/22/16 16:00 - Medications Medications: Current Medications Cyclobenzaprine HCl (Flexeril) 5 mg PO TID PRN PRN Reason: Muscle spasm Last Admin: 10/22/16 21:44 Dose: 5 mg Enoxaparin Sodium (Lovenox) 40 mg SC DAILY [facility] PRN Reason: Protocol Ergocalciferol (Drisdol 50,000 Intl Units Cap) 1 cap PO Q7D [facility] Folic Acid (Folic Acid) 1 mg PO DAILY [facility] Last Admin: 10/23/16 06:38 Dose: Not Given Hydromorphone HCl (Dilaudid) 0.5 mg IVP Q4H PRN PRN Reason: Muscle spasm Last Admin: 10/23/16 04:28 Dose: 0.5 mg Levetiracetam (Keppra 500mg Ivpb) 500 mg in 100 mls @ 420 mls/hr IV Q12 [facility] Piperacillin Sod/Tazobactam Sod (Zosyn 3.375 In Ns 100ml) 100 mls @ 200 mls/hr IVPB Q6 [facility] PRN Reason: Protocol Stop: 10/30/16 12:01 Sodium Bicarbonate 50 meq/ (Sodium Chloride) 1,050 mls @ 200 mls/hr IV .Q5H15M [facility] Stop: 10/24/16 02:44 Last Admin: 10/23/16 09:23 Dose: 200 mls/hr Vancomycin HCl (Vancomycin 1gm) 1 gm in 250 mls @ 167 mls/hr IVPB Q12H [facility] PRN Reason: Protocol Stop: 10/30/16 08:16 Last Admin: 10/23/16 08:39 Dose: 167 mls/hr Sodium Chloride (Sodium Chloride 0.9%) 1,000 mls @ 999 mls/hr IV .Q1H1M [facility] Stop: 10/23/16 10:09 Last Admin: 10/23/16 09:24 Dose: 999 mls/hr Insulin Detemir (Levemir) 20 unit SC HS [facility] Insulin Human Lispro (Humalog) 6 units SC AC [facility] Last Admin: 10/23/16 08:36 Dose: 6 units Insulin Human Lispro (Humalog Low) 0 units SC ACHS [facility] PRN Reason: Protocol Last Admin: 10/23/16 08:37 Dose: 5 units Lidocaine (Lidoderm) 1 ea TD DAILY [facility] Metoclopramide HCl (Reglan) 10 mg IVP Q6H [facility] Last Admin: 10/23/16 05:30 Dose: 10 mg Nicotine (Nicoderm Cq) 1 patch TD DAILY [facility] Ondansetron HCl (Zofran Inj) 4 mg IVP Q4H PRN PRN Reason: Nausea/Vomiting Last Admin: 10/23/16 00:39 Dose: 4 mg Pantoprazole Sodium (Protonix Inj) 40 mg IVP 0600 [facility] Last Admin: 10/23/16 05:26 Dose: 40 mg Thiamine HCl (Vitamin B1 Inj) 100 mg IV DAILY [facility] Last Admin: 10/23/16 06:30 Dose: Not Given Results - Vital Signs Recent Vital Signs: Last Vital Signs Temp 98.2 F 10/23/16 04:00 Pulse 74 10/23/16 06:00 Resp 18 10/23/16 04:00 BP 133/72 10/23/16 04:00 Pulse Ox 96 10/22/16 21:50 - Labs Result Diagrams: 10/23/16 06:43 10/23/16 06:00 Labs: Laboratory Results - last 24 hr 10/22/16 10/22/16 10/22/16 20:10 20:10 20:10 WBC RBC Hgb Hct MCV MCH MCHC RDW Plt Count MPV Gran % Lymph % (Auto) [place] % (Auto) Eos % (Auto) Baso % (Auto) Gran # Lymph # [place] # Eos # Baso # pO2 VBG pH VBG pCO2 VBG HCO3 VBG Total CO2 VBG O2 Sat (Calc) VBG Base Excess VBG Potassium Sodium Cancelled Chloride Cancelled Glucose Lactate FiO2 Potassium Cancelled Carbon Dioxide Cancelled Anion Gap Cancelled BUN Cancelled Creatinine Est GFR ( Amer) Cancelled Est GFR (Non-Af Amer) Cancelled POC Glucose (mg/dL) Random Glucose Cancelled Lactic Acid 0.9 Calcium Cancelled Phosphorus 2.0 L Magnesium 2.1 Total Bilirubin AST ALT Alkaline Phosphatase Ammonia < 9 L Total Creatine Kinase 1280 H CK-MB (CK-2) 8.7 H CK-MB (CK-2) % 0.7 L Troponin I < 0.01 Total Protein Albumin Globulin Albumin/Globulin Ratio Triglycerides Cholesterol LDL Cholesterol Direct HDL Cholesterol Thyroxine (T4) TSH 3rd Generation Venous Blood Potassium Urine Color Urine Appearance Urine pH Ur Specific [place] Urine Protein Urine Glucose (UA) Urine Ketones Urine Blood Urine Nitrate Urine Bilirubin Urine Urobilinogen Ur Leukocyte Esterase Urine Opiates Screen Urine Methadone Screen Ur Barbiturates Screen Ur Phencyclidine Scrn Ur Amphetamines Screen U Benzodiazepines Scrn U Oth Cocaine Metabols U Cannabinoids Screen 10/22/16 10/22/16 10/22/16 20:10 23:10 23:10 WBC RBC Hgb Hct MCV MCH MCHC RDW Plt Count MPV Gran % Lymph % (Auto) [place] % (Auto) Eos % (Auto) Baso % (Auto) Gran # Lymph # [place] # Eos # Baso # pO2 195 H VBG pH 7.36 VBG pCO2 41.0 VBG HCO3 23.2 VBG Total CO2 24.5 VBG O2 Sat (Calc) 99.7 H VBG Base Excess -2.2 L VBG Potassium 3.9 Sodium 137.0 Chloride 111.0 H Glucose 173 H Lactate 0.9 FiO2 21.0 Potassium Carbon Dioxide Anion Gap BUN Creatinine Est GFR ( Amer) Est GFR (Non-Af Amer) POC Glucose (mg/dL) Random Glucose Lactic Acid Calcium Phosphorus Magnesium Total Bilirubin AST ALT Alkaline Phosphatase Ammonia Total Creatine Kinase CK-MB (CK-2) CK-MB (CK-2) % Troponin I Total Protein Albumin Globulin Albumin/Globulin Ratio Triglycerides Cholesterol LDL Cholesterol Direct HDL Cholesterol Thyroxine (T4) TSH 3rd Generation Venous Blood Potassium 3.9 Urine Color Yellow Urine Appearance Clear Urine pH 5.5 Ur Specific [place] 1.020 Urine Protein Negative Urine Glucose (UA) 500 H Urine Ketones 15 H Urine Blood Negative Urine Nitrate Negative Urine Bilirubin Negative Urine Urobilinogen 0.2 Ur Leukocyte Esterase Negative Urine Opiates Screen Positive H Urine Methadone Screen Negative Ur Barbiturates Screen Negative Ur Phencyclidine Scrn Negative Ur Amphetamines Screen Negative U Benzodiazepines Scrn Negative U Oth Cocaine Metabols Negative U Cannabinoids Screen Positive H 10/23/16 10/23/16 10/23/16 00:25 06:00 06:00 WBC RBC Hgb Hct MCV MCH MCHC RDW Plt Count MPV Gran % Lymph % (Auto) [place] % (Auto) Eos % (Auto) Baso % (Auto) Gran # Lymph # [place] # Eos # Baso # pO2 62 H VBG pH 7.33 VBG pCO2 43.0 VBG HCO3 22.7 VBG Total CO2 24.0 VBG O2 Sat (Calc) 94.7 H VBG Base Excess -3.2 L VBG Potassium 4.9 Sodium 132.0 135 Chloride 105.0 100 Glucose 350 H Lactate 1.2 FiO2 21.0 Potassium 4.4 Carbon Dioxide 10 L D Anion Gap 29 H BUN 11 Creatinine 0.9 Est GFR ( Amer) > 60 Est GFR (Non-Af Amer) > 60 POC Glucose (mg/dL) Random Glucose 441 H* D Lactic Acid 12.8 H* Calcium 8.7 Phosphorus 4.8 H Magnesium 2.2 Total Bilirubin 0.7 AST 83 H ALT 34 Alkaline Phosphatase 104 Ammonia Total Creatine Kinase 2724 H CK-MB (CK-2) 11.5 H CK-MB (CK-2) % 0.4 L Troponin I < 0.01 Total Protein 7.2 Albumin 4.5 Globulin 2.7 Albumin/Globulin Ratio 1.7 Triglycerides 69 Cholesterol 137 LDL Cholesterol Direct 63 HDL Cholesterol 66 H Thyroxine (T4) TSH 3rd Generation Venous Blood Potassium 4.9 Urine Color Urine Appearance Urine pH Ur Specific [place] Urine Protein Urine Glucose (UA) Urine Ketones Urine Blood Urine Nitrate Urine Bilirubin Urine Urobilinogen Ur Leukocyte Esterase Urine Opiates Screen Urine Methadone Screen Ur Barbiturates Screen Ur Phencyclidine Scrn Ur Amphetamines Screen U Benzodiazepines Scrn U Oth Cocaine Metabols U Cannabinoids Screen 10/23/16 10/23/16 10/23/16 06:11 06:30 06:43 WBC 17.9 H D RBC 4.29 Hgb 13.8 L Hct 41.1 L MCV 95.8 MCH 32.2 MCHC 33.6 RDW 13.1 Plt Count 203 MPV 11.6 H Gran % 84.2 H Lymph % (Auto) 7.7 L [place] % (Auto) 7.9 H Eos % (Auto) 0.1 L Baso % (Auto) 0.1 Gran # 15.04 H Lymph # 1.4 [place] # 1.4 H Eos # 0.0 Baso # 0.01 pO2 VBG pH VBG pCO2 VBG HCO3 VBG Total CO2 VBG O2 Sat (Calc) VBG Base Excess VBG Potassium Sodium Chloride Glucose Lactate FiO2 Potassium Carbon Dioxide Anion Gap BUN Creatinine Est GFR ( Amer) Est GFR (Non-Af Amer) POC Glucose (mg/dL) 339 H Random Glucose Lactic Acid Calcium Phosphorus Magnesium Total Bilirubin AST ALT Alkaline Phosphatase Ammonia Total Creatine Kinase CK-MB (CK-2) CK-MB (CK-2) % Troponin I Total Protein Albumin Globulin Albumin/Globulin Ratio Triglycerides Cholesterol LDL Cholesterol Direct HDL Cholesterol Thyroxine (T4) 9.1 TSH 3rd Generation 3.14 Venous Blood Potassium Urine Color Urine Appearance Urine pH Ur Specific [place] Urine Protein Urine Glucose (UA) Urine Ketones Urine Blood Urine Nitrate Urine Bilirubin Urine Urobilinogen Ur Leukocyte Esterase Urine Opiates Screen Urine Methadone Screen Ur Barbiturates Screen Ur Phencyclidine Scrn Ur Amphetamines Screen U Benzodiazepines Scrn U Oth Cocaine Metabols U Cannabinoids Screen 10/23/16 07:55 WBC RBC Hgb Hct MCV MCH MCHC RDW Plt Count MPV Gran % Lymph % (Auto) [place] % (Auto) Eos % (Auto) Baso % (Auto) Gran # Lymph # [place] # Eos # Baso # pO2 VBG pH VBG pCO2 VBG HCO3 VBG Total CO2 VBG O2 Sat (Calc) VBG Base Excess VBG Potassium Sodium Chloride Glucose Lactate FiO2 Potassium Carbon Dioxide Anion Gap BUN Creatinine Est GFR ( Amer) Est GFR (Non-Af Amer) POC Glucose (mg/dL) 433 H* Random Glucose Lactic Acid Calcium Phosphorus Magnesium Total Bilirubin AST ALT Alkaline Phosphatase Ammonia Total Creatine Kinase CK-MB (CK-2) CK-MB (CK-2) % Troponin I Total Protein Albumin Globulin Albumin/Globulin Ratio Triglycerides Cholesterol LDL Cholesterol Direct HDL Cholesterol Thyroxine (T4) TSH 3rd Generation Venous Blood Potassium Urine Color Urine Appearance Urine pH Ur Specific [place] Urine Protein Urine Glucose (UA) Urine Ketones Urine Blood Urine Nitrate Urine Bilirubin Urine Urobilinogen Ur Leukocyte Esterase Urine Opiates Screen Urine Methadone Screen Ur Barbiturates Screen Ur Phencyclidine Scrn Ur Amphetamines Screen U Benzodiazepines Scrn U Oth Cocaine Metabols U Cannabinoids Screen
[2016-10-23] MEDS ORDERED: Insulin Regular 1 UNITS/0.01 ML ML SC SCH (10:00)
[2016-10-23] MEDS ORDERED: Ergocalciferol 50,000 Intl Units Cap PO SCH (10:00)
--- NOTE | 2016-10-23 10:25 | CP.PCM.CON ---
History of Present Illness - History of Present Illness History of Present Illness: 31 year old male with PMH of DM, poorly compliant, hypothyroidism was brought in to [facility] because of a fall at work where he apparently fainted. He does not recall the fall. According to the father, the patient was not noted by co-workers to have had convulsions, no bowel or urinary incontinence at the time. He did hit his head and did have vomiting after the fall. He denies fever or chills, no chest pain, no SOB, no diarrhea, no dysuria but feels weak and tired. He is noted to have hyperglycemia and will be transferred to ICU for closer observation and management. He was also noted to have leukocytosis and Infectious diseases consult is requested to further evaluate and manage. Review of Systems - Review of Systems All systems: reviewed and no additional remarkable complaints except (as per HPI ) Past Patient History - Infectious Disease Hx of Infectious Diseases: None - Past Social History Smoking Status: Light Smoker < 10 Cigarettes Daily - ENDOCRINE/METABOLIC Hx Diabetes Mellitus Type 1: Yes Hx Hypothyroidism: Yes - MUSCULOSKELETAL/RHEUMATOLOGICAL Hx Falls: No - PSYCHIATRIC Hx Substance Use: No Meds Allergies/Adverse Reactions: Allergies Allergy/AdvReac Type Severity Reaction Status Date / Time No Known Allergies Allergy Verified 10/22/16 16:00 - Medications Medications: Current Medications Cyclobenzaprine HCl (Flexeril) 5 mg PO TID PRN PRN Reason: Muscle spasm Last Admin: 10/22/16 21:44 Dose: 5 mg Enoxaparin Sodium (Lovenox) 40 mg SC DAILY [facility] PRN Reason: Protocol Ergocalciferol (Drisdol 50,000 Intl Units Cap) 1 cap PO Q7D [facility] Folic Acid (Folic Acid) 1 mg PO DAILY DIMITRI Last Admin: 10/23/16 06:38 Dose: Not Given Hydromorphone HCl (Dilaudid) 0.5 mg IVP Q4H PRN PRN Reason: Muscle spasm Last Admin: 10/23/16 04:28 Dose: 0.5 mg Levetiracetam (Keppra 500mg Ivpb) 500 mg in 100 mls @ 420 mls/hr IV Q12 [facility] Piperacillin Sod/Tazobactam Sod (Zosyn 3.375 In Ns 100ml) 100 mls @ 200 mls/hr IVPB Q6 [facility] PRN Reason: Protocol Stop: 10/30/16 12:01 Sodium Bicarbonate 50 meq/ (Sodium Chloride) 1,050 mls @ 200 mls/hr IV .Q5H15M [facility] Stop: 10/24/16 02:44 Insulin Detemir (Levemir) 20 unit SC HS [facility] Insulin Human Lispro (Humalog) 6 units SC AC [facility] Insulin Human Lispro (Humalog Low) 0 units SC ACHS [facility] PRN Reason: Protocol Lidocaine (Lidoderm) 1 ea TD DAILY [facility] Metoclopramide HCl (Reglan) 10 mg IVP Q6H [facility] Last Admin: 10/23/16 05:30 Dose: 10 mg Nicotine (Nicoderm Cq) 1 patch TD DAILY [facility] Ondansetron HCl (Zofran Inj) 4 mg IVP Q4H PRN PRN Reason: Nausea/Vomiting Last Admin: 10/23/16 00:39 Dose: 4 mg Pantoprazole Sodium (Protonix Inj) 40 mg IVP 0600 [facility] Last Admin: 10/23/16 05:26 Dose: 40 mg Thiamine HCl (Vitamin B1 Inj) 100 mg IV DAILY [facility] Last Admin: 10/23/16 06:30 Dose: Not Given Physical Exam - Constitutional Appears: Other (feels weak and tired) - Head Exam Additional comments: wound noted on the upper scalp area - ENT Exam ENT Exam: Mucous Membranes Moist - Neck Exam Neck exam: Negative for: Lymphadenopathy, Meningismus - Respiratory Exam Respiratory Exam: Decreased Breath Sounds - Cardiovascular Exam Cardiovascular Exam: +S1, +S2 - GI/Abdominal Exam GI & Abdominal Exam: Soft. absent: Tenderness Results - Vital Signs Recent Vital Signs: Last Vital Signs Temp 98.2 F 10/23/16 04:00 Pulse 74 10/23/16 06:00 Resp 18 10/23/16 04:00 BP 133/72 10/23/16 04:00 Pulse Ox 96 10/22/16 21:50 - Labs Result Diagrams: 10/23/16 06:43 10/23/16 06:00 Labs: Laboratory Results - last 24 hr 10/22/16 10/22/16 10/22/16 20:10 20:10 20:10 WBC RBC Hgb Hct MCV MCH MCHC RDW Plt Count MPV Gran % Lymph % (Auto) [place] % (Auto) Eos % (Auto) Baso % (Auto) Gran # Lymph # [place] # Eos # Baso # pO2 VBG pH VBG pCO2 VBG HCO3 VBG Total CO2 VBG O2 Sat (Calc) VBG Base Excess VBG Potassium Sodium Cancelled Chloride Cancelled Glucose Lactate FiO2 Potassium Cancelled Carbon Dioxide Cancelled Anion Gap Cancelled BUN Cancelled Creatinine Est GFR ( Amer) Cancelled Est GFR (Non-Af Amer) Cancelled POC Glucose (mg/dL) Random Glucose Cancelled Lactic Acid 0.9 Calcium Cancelled Phosphorus 2.0 L Magnesium 2.1 Total Bilirubin AST ALT Alkaline Phosphatase Ammonia < 9 L Total Creatine Kinase 1280 H CK-MB (CK-2) 8.7 H CK-MB (CK-2) % 0.7 L Troponin I < 0.01 Total Protein Albumin Globulin Albumin/Globulin Ratio Triglycerides Cholesterol LDL Cholesterol Direct HDL Cholesterol Thyroxine (T4) Venous Blood Potassium Urine Color Urine Appearance Urine pH Ur Specific [place] Urine Protein Urine Glucose (UA) Urine Ketones Urine Blood Urine Nitrate Urine Bilirubin Urine Urobilinogen Ur Leukocyte Esterase Urine Opiates Screen Urine Methadone Screen Ur Barbiturates Screen Ur Phencyclidine Scrn Ur Amphetamines Screen U Benzodiazepines Scrn U Oth Cocaine Metabols U Cannabinoids Screen 10/22/16 10/22/16 10/22/16 20:10 23:10 23:10 WBC RBC Hgb Hct MCV MCH MCHC RDW Plt Count MPV Gran % Lymph % (Auto) [place] % (Auto) Eos % (Auto) Baso % (Auto) Gran # Lymph # [place] # Eos # Baso # pO2 195 H VBG pH 7.36 VBG pCO2 41.0 VBG HCO3 23.2 VBG Total CO2 24.5 VBG O2 Sat (Calc) 99.7 H VBG Base Excess -2.2 L VBG Potassium 3.9 Sodium 137.0 Chloride 111.0 H Glucose 173 H Lactate 0.9 FiO2 21.0 Potassium Carbon Dioxide Anion Gap BUN Creatinine Est GFR ( Amer) Est GFR (Non-Af Amer) POC Glucose (mg/dL) Random Glucose Lactic Acid Calcium Phosphorus Magnesium Total Bilirubin AST ALT Alkaline Phosphatase Ammonia Total Creatine Kinase CK-MB (CK-2) CK-MB (CK-2) % Troponin I Total Protein Albumin Globulin Albumin/Globulin Ratio Triglycerides Cholesterol LDL Cholesterol Direct HDL Cholesterol Thyroxine (T4) Venous Blood Potassium 3.9 Urine Color Yellow Urine Appearance Clear Urine pH 5.5 Ur Specific [place] 1.020 Urine Protein Negative Urine Glucose (UA) 500 H Urine Ketones 15 H Urine Blood Negative Urine Nitrate Negative Urine Bilirubin Negative Urine Urobilinogen 0.2 Ur Leukocyte Esterase Negative Urine Opiates Screen Positive H Urine Methadone Screen Negative Ur Barbiturates Screen Negative Ur Phencyclidine Scrn Negative Ur Amphetamines Screen Negative U Benzodiazepines Scrn Negative U Oth Cocaine Metabols Negative U Cannabinoids Screen Positive H 10/23/16 10/23/16 10/23/16 00:25 06:00 06:00 WBC RBC Hgb Hct MCV MCH MCHC RDW Plt Count MPV Gran % Lymph % (Auto) [place] % (Auto) Eos % (Auto) Baso % (Auto) Gran # Lymph # [place] # Eos # Baso # pO2 62 H VBG pH 7.33 VBG pCO2 43.0 VBG HCO3 22.7 VBG Total CO2 24.0 VBG O2 Sat (Calc) 94.7 H VBG Base Excess -3.2 L VBG Potassium 4.9 Sodium 132.0 135 Chloride 105.0 100 Glucose 350 H Lactate 1.2 FiO2 21.0 Potassium 4.4 Carbon Dioxide 10 L D Anion Gap 29 H BUN 11 Creatinine 0.9 Est GFR ( Amer) > 60 Est GFR (Non-Af Amer) > 60 POC Glucose (mg/dL) Random Glucose 441 H* D Lactic Acid 12.8 H* Calcium 8.7 Phosphorus 4.8 H Magnesium 2.2 Total Bilirubin 0.7 AST 83 H ALT 34 Alkaline Phosphatase 104 Ammonia Total Creatine Kinase 2724 H CK-MB (CK-2) 11.5 H CK-MB (CK-2) % 0.4 L Troponin I < 0.01 Total Protein 7.2 Albumin 4.5 Globulin 2.7 Albumin/Globulin Ratio 1.7 Triglycerides 69 Cholesterol 137 LDL Cholesterol Direct 63 HDL Cholesterol 66 H Thyroxine (T4) Venous Blood Potassium 4.9 Urine Color Urine Appearance Urine pH Ur Specific [place] Urine Protein Urine Glucose (UA) Urine Ketones Urine Blood Urine Nitrate Urine Bilirubin Urine Urobilinogen Ur Leukocyte Esterase Urine Opiates Screen Urine Methadone Screen Ur Barbiturates Screen Ur Phencyclidine Scrn Ur Amphetamines Screen U Benzodiazepines Scrn U Oth Cocaine Metabols U Cannabinoids Screen 10/23/16 10/23/16 10/23/16 06:11 06:30 06:43 WBC 17.9 H D RBC 4.29 Hgb 13.8 L Hct 41.1 L MCV 95.8 MCH 32.2 MCHC 33.6 RDW 13.1 Plt Count 203 MPV 11.6 H Gran % 84.2 H Lymph % (Auto) 7.7 L [place] % (Auto) 7.9 H Eos % (Auto) 0.1 L Baso % (Auto) 0.1 Gran # 15.04 H Lymph # 1.4 [place] # 1.4 H Eos # 0.0 Baso # 0.01 pO2 VBG pH VBG pCO2 VBG HCO3 VBG Total CO2 VBG O2 Sat (Calc) VBG Base Excess VBG Potassium Sodium Chloride Glucose Lactate FiO2 Potassium Carbon Dioxide Anion Gap BUN Creatinine Est GFR ( Amer) Est GFR (Non-Af Amer) POC Glucose (mg/dL) 339 H Random Glucose Lactic Acid Calcium Phosphorus Magnesium Total Bilirubin AST ALT Alkaline Phosphatase Ammonia Total Creatine Kinase CK-MB (CK-2) CK-MB (CK-2) % Troponin I Total Protein Albumin Globulin Albumin/Globulin Ratio Triglycerides Cholesterol LDL Cholesterol Direct HDL Cholesterol Thyroxine (T4) 9.1 Venous Blood Potassium Urine Color Urine Appearance Urine pH Ur Specific [place] Urine Protein Urine Glucose (UA) Urine Ketones Urine Blood Urine Nitrate Urine Bilirubin Urine Urobilinogen Ur Leukocyte Esterase Urine Opiates Screen Urine Methadone Screen Ur Barbiturates Screen Ur Phencyclidine Scrn Ur Amphetamines Screen U Benzodiazepines Scrn U Oth Cocaine Metabols U Cannabinoids Screen Assessment & Plan - Assessment and Plan (Free Text) Plan: Assessment Systemic Inflammatory Response Syndrome in a patient with hyperglycemia, R/O sepsis source to be determined Fall with trauma to the head and new onset seizure DM, poorly compliant hypothyroidism Plan Started patient on Vancomycin and Zosyn pending blood, urine cx, PCT, CXR; will follow up MRI brain and will monitor clinically
[2016-10-23] MEDS ORDERED: Insulin Regular 100 UNITS in Sodium Chloride 0.9% 99 ML IV PRN (10:31)
[2016-10-23] MEDS: levETIRAcetam 500mg IVPB 500 MG/100 ML BAG IV SCH ×2 (11:17→23:32)
[2016-10-23] MEDS: Enoxaparin 40 mg Syringe SC SCH (11:22)
[2016-10-23] MEDS: Piperacillin/Tazobact 3.375 gm 100 ML IVPB SCH ×2 (12:00→18:07)
--- NOTE | 2016-10-23 12:34 | CARD ---
APPROVED REPORT EKG Measurement Heart [id number] <Conclusion> Sinus rhythm with marked sinus arrhythmia with junctional escape complexes Otherwise normal ECG
--- NOTE | 2016-10-23 12:43 | CARD ---
APPROVED REPORT EKG Measurement Heart [id number] <Conclusion> Normal sinus rhythm with sinus arrhythmia Normal ECG
--- NOTE | 2016-10-23 12:46 | CARD ---
APPROVED REPORT EKG Measurement Heart [id number] <Conclusion> Sinus rhythm with marked sinus arrhythmia Otherwise normal ECG
--- NOTE | 2016-10-23 13:39 | CP.PCM.CON ---
<Shayna Wood - Last Filed: 10/23/16 14:24> History of Present Illness - History of Present Illness History of Present Illness: PGY-2 ICU Consult note 31 yo male with PMH of type 1 DM, hypothyriodism presents after syncopal episode. Patient states he was at work and does no recall what occurred, only remembers waking up in the ambulance. He does not recall if he hit his head but does report multiple scrapes over his body. Overnight patient became agitated, diaphoretic secondary to possible seizure. He was given ativan. Patient does not recall the events that occurred overnight. Patient denies loss of bowel of bladder function. He states that he tired but denies any chest pain, fever, chills, n/v. PMH: type 1 DM, hypothyriodism PSH: denies allergies: NKDA social hx: former smoker, occasional alcohol use, occasional marijuana use FH: DM, lung ca Review of Systems - Constitutional Constitutional: absent: Chills, Fever, Headache - EENT Eyes: absent: Blurred Vision Nose/Mouth/Throat: absent: Nasal Congestion, Nasal Discharge, Sore Throat - Cardiovascular Cardiovascular: absent: Chest Pain, Diaphoresis, Dyspnea - Respiratory Respiratory: absent: Cough, Dyspnea, Hemoptysis - Gastrointestinal Gastrointestinal: absent: Abdominal Pain, Constipation, Diarrhea, Nausea, Vomiting - Genitourinary Genitourinary: absent: Difficulty Urinating, Dysuria - Musculoskeletal Musculoskeletal: Back Pain, Neck Pain. absent: Muscle Cramps - Neurological Neurological: absent: Dizziness, Numbness, Focal Weakness, Syncope - Hematologic/Lymphatic Hematologic: absent: Easy Bleeding, Easy Bruising Past Patient History - Infectious Disease Hx of Infectious Diseases: None - Past Social History Smoking Status: Light Smoker < 10 Cigarettes Daily - ENDOCRINE/METABOLIC Hx Diabetes Mellitus Type 1: Yes Hx Hypothyroidism: Yes - MUSCULOSKELETAL/RHEUMATOLOGICAL Hx Falls: No - PSYCHIATRIC Hx Substance Use: No Meds Allergies/Adverse Reactions: Allergies Allergy/AdvReac Type Severity Reaction Status Date / Time No Known Allergies Allergy Verified 10/22/16 16:00 - Medications Medications: Current Medications Cyclobenzaprine HCl (Flexeril) 5 mg PO TID PRN PRN Reason: Muscle spasm Last Admin: 10/22/16 21:44 Dose: 5 mg Enoxaparin Sodium (Lovenox) 40 mg SC DAILY [facility] PRN Reason: Protocol Last Admin: 10/23/16 11:22 Dose: 40 mg Ergocalciferol (Drisdol 50,000 Intl Units Cap) 1 cap PO Q7D [facility] Folic Acid (Folic Acid) 1 mg PO DAILY [facility] Last Admin: 10/23/16 11:15 Dose: 1 mg Hydromorphone HCl (Dilaudid) 0.5 mg IVP Q4H PRN PRN Reason: Muscle spasm Last Admin: 10/23/16 12:08 Dose: 0.5 mg Levetiracetam (Keppra 500mg Ivpb) 500 mg in 100 mls @ 420 mls/hr IV Q12 [facility] Last Admin: 10/23/16 11:17 Dose: 420 mls/hr Piperacillin Sod/Tazobactam Sod (Zosyn 3.375 In Ns 100ml) 100 mls @ 200 mls/hr IVPB Q6 [facility] PRN Reason: Protocol Stop: 10/30/16 12:01 Sodium Bicarbonate 50 meq/ (Sodium Chloride) 1,050 mls @ 200 mls/hr IV .Q5H15M [facility] Last Admin: 10/23/16 09:23 Dose: 200 mls/hr Vancomycin HCl (Vancomycin 1gm) 1 gm in 250 mls @ 167 mls/hr IVPB Q12H [facility] PRN Reason: Protocol Stop: 10/30/16 08:16 Last Admin: 10/23/16 08:39 Dose: 167 mls/hr Insulin Human Regular 100 (units/ Sodium Chloride) 100 mls @ 2 mls/hr IV .Q24H PRN; Protocol; 2 UNITS/HR PRN Reason: TITRATE PER MD ORDER Sodium Chloride (Sodium Chloride 0.9%) 1,000 mls @ 200 mls/hr IV .Q5H [facility] Insulin Detemir (Levemir) 20 unit SC HS [facility] Insulin Human Lispro (Humalog) 6 units SC AC [facility] Last Admin: 10/23/16 08:36 Dose: 6 units Insulin Human Lispro (Humalog Low) 0 units SC ACHS [facility] PRN Reason: Protocol Last Admin: 10/23/16 08:37 Dose: 5 units Lidocaine (Lidoderm) 1 ea TD DAILY [facility] Metoclopramide HCl (Reglan) 10 mg IVP Q6H [facility] Last Admin: 10/23/16 05:30 Dose: 10 mg Nicotine (Nicoderm Cq) 1 patch TD DAILY [facility] Ondansetron HCl (Zofran Inj) 4 mg IVP Q4H PRN PRN Reason: Nausea/Vomiting Last Admin: 10/23/16 00:39 Dose: 4 mg Pantoprazole Sodium (Protonix Inj) 40 mg IVP 0600 [facility] Last Admin: 10/23/16 05:26 Dose: 40 mg Thiamine HCl (Vitamin B1 Inj) 100 mg IV DAILY [facility] Last Admin: 10/23/16 11:18 Dose: 100 mg Physical Exam - Constitutional Appears: Well, No Acute Distress - Head Exam Head Exam: ATRAUMATIC, NORMOCEPHALIC - Eye Exam Eye Exam: EOMI, Normal appearance, PERRL - ENT Exam ENT Exam: Mucous Membranes Moist - Respiratory Exam Respiratory Exam: Clear to Auscultation Bilateral, NORMAL BREATHING PATTERN. absent: Rales, Rhonchi, Wheezes, Respiratory Distress - Cardiovascular Exam Cardiovascular Exam: REGULAR RHYTHM, +S1, +S2. absent: Tachycardia, Diastolic murmur, Systolic Murmur - GI/Abdominal Exam GI & Abdominal Exam: Normal Bowel Sounds, Soft. absent: Distended, Firm, Guarding, Tenderness - Extremities Exam Extremities exam: Positive for: normal inspection. Negative for: pedal edema - Neurological Exam Neurological exam: Alert, Oriented x3 - Skin Skin Exam: Dry, Intact, Normal Color, Warm Results - Vital Signs Recent Vital Signs: Last Vital Signs Temp 98.2 F 10/23/16 12:38 Pulse 74 10/23/16 06:00 Resp 18 10/23/16 04:00 BP 133/72 10/23/16 04:00 Pulse Ox 96 10/22/16 21:50 - Labs Result Diagrams: 10/23/16 06:43 10/23/16 13:00 Labs: Laboratory Results - last 24 hr 10/22/16 10/22/16 10/22/16 20:10 20:10 20:10 WBC RBC Hgb Hct MCV MCH MCHC RDW Plt Count MPV Gran % Lymph % (Auto) Brooke % (Auto) Eos % (Auto) Baso % (Auto) Gran # Lymph # Brooke # Eos # Baso # pO2 VBG pH VBG pCO2 VBG HCO3 VBG Total CO2 VBG O2 Sat (Calc) VBG Base Excess VBG Potassium Sodium Cancelled Chloride Cancelled Glucose Lactate FiO2 Potassium Cancelled Carbon Dioxide Cancelled Anion Gap Cancelled BUN Cancelled Creatinine Est GFR ( Amer) Cancelled Est GFR (Non-Af Amer) Cancelled POC Glucose (mg/dL) Random Glucose Cancelled Lactic Acid 0.9 Calcium Cancelled Phosphorus 2.0 L Magnesium 2.1 Total Bilirubin AST ALT Alkaline Phosphatase Ammonia < 9 L Total Creatine Kinase 1280 H CK-MB (CK-2) 8.7 H CK-MB (CK-2) % 0.7 L Troponin I < 0.01 Total Protein Albumin Globulin Albumin/Globulin Ratio Triglycerides Cholesterol LDL Cholesterol Direct HDL Cholesterol Thyroxine (T4) TSH 3rd Generation Venous Blood Potassium Urine Color Urine Appearance Urine pH Ur Specific [place] Urine Protein Urine Glucose (UA) Urine Ketones Urine Blood Urine Nitrate Urine Bilirubin Urine Urobilinogen Ur Leukocyte Esterase Urine Opiates Screen Urine Methadone Screen Ur Barbiturates Screen Ur Phencyclidine Scrn Ur Amphetamines Screen U Benzodiazepines Scrn U Oth Cocaine Metabols U Cannabinoids Screen 10/22/16 10/22/16 10/22/16 20:10 23:10 23:10 WBC RBC Hgb Hct MCV MCH MCHC RDW Plt Count MPV Gran % Lymph % (Auto) Brooke % (Auto) Eos % (Auto) Baso % (Auto) Gran # Lymph # Brooke # Eos # Baso # pO2 195 H VBG pH 7.36 VBG pCO2 41.0 VBG HCO3 23.2 VBG Total CO2 24.5 VBG O2 Sat (Calc) 99.7 H VBG Base Excess -2.2 L VBG Potassium 3.9 Sodium 137.0 Chloride 111.0 H Glucose 173 H Lactate 0.9 FiO2 21.0 Potassium Carbon Dioxide Anion Gap BUN Creatinine Est GFR ( Amer) Est GFR (Non-Af Amer) POC Glucose (mg/dL) Random Glucose Lactic Acid Calcium Phosphorus Magnesium Total Bilirubin AST ALT Alkaline Phosphatase Ammonia Total Creatine Kinase CK-MB (CK-2) CK-MB (CK-2) % Troponin I Total Protein Albumin Globulin Albumin/Globulin Ratio Triglycerides Cholesterol LDL Cholesterol Direct HDL Cholesterol Thyroxine (T4) TSH 3rd Generation Venous Blood Potassium 3.9 Urine Color Yellow Urine Appearance Clear Urine pH 5.5 Ur Specific [place] 1.020 Urine Protein Negative Urine Glucose (UA) 500 H Urine Ketones 15 H Urine Blood Negative Urine Nitrate Negative Urine Bilirubin Negative Urine Urobilinogen 0.2 Ur Leukocyte Esterase Negative Urine Opiates Screen Positive H Urine Methadone Screen Negative Ur Barbiturates Screen Negative Ur Phencyclidine Scrn Negative Ur Amphetamines Screen Negative U Benzodiazepines Scrn Negative U Oth Cocaine Metabols Negative U Cannabinoids Screen Positive H 10/23/16 10/23/16 10/23/16 00:25 06:00 06:00 WBC RBC Hgb Hct MCV MCH MCHC RDW Plt Count MPV Gran % Lymph % (Auto) Brooke % (Auto) Eos % (Auto) Baso % (Auto) Gran # Lymph # Brooke # Eos # Baso # pO2 62 H VBG pH 7.33 VBG pCO2 43.0 VBG HCO3 22.7 VBG Total CO2 24.0 VBG O2 Sat (Calc) 94.7 H VBG Base Excess -3.2 L VBG Potassium 4.9 Sodium 132.0 135 Chloride 105.0 100 Glucose 350 H Lactate 1.2 FiO2 21.0 Potassium 4.4 Carbon Dioxide 10 L D Anion Gap 29 H BUN 11 Creatinine 0.9 Est GFR ( Amer) > 60 Est GFR (Non-Af Amer) > 60 POC Glucose (mg/dL) Random Glucose 441 H* D Lactic Acid 12.8 H* Calcium 8.7 Phosphorus 4.8 H Magnesium 2.2 Total Bilirubin 0.7 AST 83 H ALT 34 Alkaline Phosphatase 104 Ammonia Total Creatine Kinase 2724 H CK-MB (CK-2) 11.5 H CK-MB (CK-2) % 0.4 L Troponin I < 0.01 Total Protein 7.2 Albumin 4.5 Globulin 2.7 Albumin/Globulin Ratio 1.7 Triglycerides 69 Cholesterol 137 LDL Cholesterol Direct 63 HDL Cholesterol 66 H Thyroxine (T4) TSH 3rd Generation Venous Blood Potassium 4.9 Urine Color Urine Appearance Urine pH Ur Specific [place] Urine Protein Urine Glucose (UA) Urine Ketones Urine Blood Urine Nitrate Urine Bilirubin Urine Urobilinogen Ur Leukocyte Esterase Urine Opiates Screen Urine Methadone Screen Ur Barbiturates Screen Ur Phencyclidine Scrn Ur Amphetamines Screen U Benzodiazepines Scrn U Oth Cocaine Metabols U Cannabinoids Screen 10/23/16 10/23/16 10/23/16 06:11 06:30 06:43 WBC 17.9 H D RBC 4.29 Hgb 13.8 L Hct 41.1 L MCV 95.8 MCH 32.2 MCHC 33.6 RDW 13.1 Plt Count 203 MPV 11.6 H Gran % 84.2 H Lymph % (Auto) 7.7 L Brooke % (Auto) 7.9 H Eos % (Auto) 0.1 L Baso % (Auto) 0.1 Gran # 15.04 H Lymph # 1.4 Brooke # 1.4 H Eos # 0.0 Baso # 0.01 pO2 VBG pH VBG pCO2 VBG HCO3 VBG Total CO2 VBG O2 Sat (Calc) VBG Base Excess VBG Potassium Sodium Chloride Glucose Lactate FiO2 Potassium Carbon Dioxide Anion Gap BUN Creatinine Est GFR ( Amer) Est GFR (Non-Af Amer) POC Glucose (mg/dL) 339 H Random Glucose Lactic Acid Calcium Phosphorus Magnesium Total Bilirubin AST ALT Alkaline Phosphatase Ammonia Total Creatine Kinase CK-MB (CK-2) CK-MB (CK-2) % Troponin I Total Protein Albumin Globulin Albumin/Globulin Ratio Triglycerides Cholesterol LDL Cholesterol Direct HDL Cholesterol Thyroxine (T4) 9.1 TSH 3rd Generation 3.14 Venous Blood Potassium Urine Color Urine Appearance Urine pH Ur Specific [place] Urine Protein Urine Glucose (UA) Urine Ketones Urine Blood Urine Nitrate Urine Bilirubin Urine Urobilinogen Ur Leukocyte Esterase Urine Opiates Screen Urine Methadone Screen Ur Barbiturates Screen Ur Phencyclidine Scrn Ur Amphetamines Screen U Benzodiazepines Scrn U Oth Cocaine Metabols U Cannabinoids Screen 10/23/16 07:55 WBC RBC Hgb Hct MCV MCH MCHC RDW Plt Count MPV Gran % Lymph % (Auto) Brooke % (Auto) Eos % (Auto) Baso % (Auto) Gran # Lymph # Brooke # Eos # Baso # pO2 VBG pH VBG pCO2 VBG HCO3 VBG Total CO2 VBG O2 Sat (Calc) VBG Base Excess VBG Potassium Sodium Chloride Glucose Lactate FiO2 Potassium Carbon Dioxide Anion Gap BUN Creatinine Est GFR ( Amer) Est GFR (Non-Af Amer) POC Glucose (mg/dL) 433 H* Random Glucose Lactic Acid Calcium Phosphorus Magnesium Total Bilirubin AST ALT Alkaline Phosphatase Ammonia Total Creatine Kinase CK-MB (CK-2) CK-MB (CK-2) % Troponin I Total Protein Albumin Globulin Albumin/Globulin Ratio Triglycerides Cholesterol LDL Cholesterol Direct HDL Cholesterol Thyroxine (T4) TSH 3rd Generation Venous Blood Potassium Urine Color Urine Appearance Urine pH Ur Specific [place] Urine Protein Urine Glucose (UA) Urine Ketones Urine Blood Urine Nitrate Urine Bilirubin Urine Urobilinogen Ur Leukocyte Esterase Urine Opiates Screen Urine Methadone Screen Ur Barbiturates Screen Ur Phencyclidine Scrn Ur Amphetamines Screen U Benzodiazepines Scrn U Oth Cocaine Metabols U Cannabinoids Screen Assessment & Plan - Assessment and Plan (Free Text) Assessment: 31 yo male with PMH of type 1 DM, hypothyriodism presents for DKA and possible seizures. Plan: Neuro: Possible seizure. Patient is alert and oriented. CT head was unremarkable EEG completed, read is pending. MRI ordered. Neuro consulted. Cont keppra Cardiovascular: hemodynamically stable. Maintain MAP>65, cont to monitor. ECHO ordered. Orthostatic vitals ordered. trops trending, negative x4. Lipid panel pending. Cardiology consulted for syncope. Pulm: stable. patient saturating well on room air. CXR showed no active disease. supplemental O2 as needed to maintain SaO2 >90% GI: Stable. protonix- PPx Renal: stable. replace electrolytes as needed Endo: DKA, started insulin drip. Switched NS to D5W when POC glucose was less then 200. BMP showed closed anion gap, Will start insulin SC, levemir 6 units. Will stop insulin drip once blood glucose stable on insulin sc. HgbA1c ordered endo consulted ID: [email or web address] with leukocytosis. Blood, and urine cultures ordered. procalcitonin ordered. Continue zosyn and vanco. ID consulted. msk: cervical spine CT unremarkable. Flexural and Dilaudid for pain management. cervical spine MRI ordered per primary DVT ppx: lovenox <See Soto - Last Filed: 10/23/16 18:59> Meds - Medications Medications: Current Medications Cyclobenzaprine HCl (Flexeril) 5 mg PO TID PRN PRN Reason: Muscle spasm Last Admin: 10/22/16 21:44 Dose: 5 mg Enoxaparin Sodium (Lovenox) 40 mg SC DAILY [facility] PRN Reason: Protocol Last Admin: 10/23/16 11:22 Dose: 40 mg Ergocalciferol (Drisdol 50,000 Intl Units Cap) 1 cap PO Q7D [facility] Folic Acid (Folic Acid) 1 mg PO DAILY [facility] Last Admin: 10/23/16 11:15 Dose: 1 mg Hydromorphone HCl (Dilaudid) 0.5 mg IVP Q4H PRN PRN Reason: Muscle spasm Last Admin: 10/23/16 12:08 Dose: 0.5 mg Levetiracetam (Keppra 500mg Ivpb) 500 mg in 100 mls @ 420 mls/hr IV Q12 [facility] Last Admin: 10/23/16 11:17 Dose: 420 mls/hr Piperacillin Sod/Tazobactam Sod (Zosyn 3.375 In Ns 100ml) 100 mls @ 200 mls/hr IVPB Q6 [facility] PRN Reason: Protocol Stop: 10/30/16 12:01 Last Admin: 10/23/16 18:07 Dose: 200 mls/hr Sodium Bicarbonate 50 meq/ (Sodium Chloride) 1,050 mls @ 200 mls/hr IV .Q5H15M [facility] Last Admin: 10/23/16 09:23 Dose: 200 mls/hr Vancomycin HCl (Vancomycin 1gm) 1 gm in 250 mls @ 167 mls/hr IVPB Q12H [facility] PRN Reason: Protocol Stop: 10/30/16 08:16 Last Admin: 10/23/16 08:39 Dose: 167 mls/hr Sodium Chloride (Sodium Chloride 0.9%) 1,000 mls @ 200 mls/hr IV .Q5H [facility] Potassium Chloride (Potassium Chloride 10 Meq/100 Ml) 10 meq in 100 mls @ 100 mls/hr IVPB Q2H [facility] Stop: 10/23/16 18:59 Last Admin: 10/23/16 18:02 Dose: 100 mls/hr Insulin Detemir (Levemir) 20 unit SC HS [facility] Insulin Detemir (Levemir) 6 unit SC DAILY [facility] Insulin Human Lispro (Humalog) 6 units SC AC [facility] Last Admin: 10/23/16 18:00 Dose: Not Given Insulin Human Lispro (Humalog Low) 0 units SC ACHS [facility] PRN Reason: Protocol Last Admin: 10/23/16 18:10 Dose: Not Given Lidocaine (Lidoderm) 1 ea TD DAILY [facility] Metoclopramide HCl (Reglan) 10 mg IVP Q6H [facility] Last Admin: 10/23/16 18:10 Dose: Not Given Nicotine (Nicoderm Cq) 1 patch TD DAILY [facility] Ondansetron HCl (Zofran Inj) 4 mg IVP Q4H PRN PRN Reason: Nausea/Vomiting Last Admin: 10/23/16 00:39 Dose: 4 mg Pantoprazole Sodium (Protonix Inj) 40 mg IVP 0600 [facility] Last Admin: 10/23/16 05:26 Dose: 40 mg Thiamine HCl (Vitamin B1 Inj) 100 mg IV DAILY [facility] Last Admin: 10/23/16 11:18 Dose: 100 mg Results - Vital Signs Recent Vital Signs: Last Vital Signs Temp 98.2 F 10/23/16 12:38 Pulse 89 10/23/16 09:40 Resp 18 10/23/16 04:00 BP 133/72 10/23/16 04:00 Pulse Ox 96 10/22/16 21:50 - Labs Result Diagrams: 10/23/16 06:43 10/23/16 16:40 Labs: Laboratory Results - last 24 hr 10/22/16 10/22/16 10/22/16 20:10 20:10 20:10 WBC RBC Hgb Hct MCV MCH MCHC RDW Plt Count MPV Gran % Lymph % (Auto) Brooke % (Auto) Eos % (Auto) Baso % (Auto) Gran # Lymph # Brooke # Eos # Baso # pO2 VBG pH VBG pCO2 VBG HCO3 VBG Total CO2 VBG O2 Sat (Calc) VBG Base Excess VBG Potassium Sodium Cancelled Chloride Cancelled Glucose Lactate FiO2 Potassium Cancelled Carbon Dioxide Cancelled Anion Gap Cancelled BUN Cancelled Creatinine Est GFR ( Amer) Cancelled Est GFR (Non-Af Amer) Cancelled POC Glucose (mg/dL) Random Glucose Cancelled Lactic Acid 0.9 Calcium Cancelled Phosphorus 2.0 L Magnesium 2.1 Total Bilirubin AST ALT Alkaline Phosphatase Ammonia < 9 L Total Creatine Kinase 1280 H CK-MB (CK-2) 8.7 H CK-MB (CK-2) % 0.7 L Troponin I < 0.01 Total Protein Albumin Globulin Albumin/Globulin Ratio Triglycerides Cholesterol LDL Cholesterol Direct HDL Cholesterol 25-OH Vitamin D Total Procalcitonin Thyroxine (T4) TSH 3rd Generation Cortisol AM Sample Venous Blood Potassium Urine Color Urine Appearance Urine pH Ur Specific [place] Urine Protein Urine Glucose (UA) Urine Ketones Urine Blood Urine Nitrate Urine Bilirubin Urine Urobilinogen Ur Leukocyte Esterase Urine Opiates Screen Urine Methadone Screen Ur Barbiturates Screen Ur Phencyclidine Scrn Ur Amphetamines Screen U Benzodiazepines Scrn U Oth Cocaine Metabols U Cannabinoids Screen Hepatitis A IgM Ab Hep Bs Antigen Hep B Core IgM Ab Hepatitis C Antibody 10/22/16 10/22/16 10/22/16 20:10 23:10 23:10 WBC RBC Hgb Hct MCV MCH MCHC RDW Plt Count MPV Gran % Lymph % (Auto) Brooke % (Auto) Eos % (Auto) Baso % (Auto) Gran # Lymph # Brooke # Eos # Baso # pO2 195 H VBG pH 7.36 VBG pCO2 41.0 VBG HCO3 23.2 VBG Total CO2 24.5 VBG O2 Sat (Calc) 99.7 H VBG Base Excess -2.2 L VBG Potassium 3.9 Sodium 137.0 Chloride 111.0 H Glucose 173 H Lactate 0.9 FiO2 21.0 Potassium Carbon Dioxide Anion Gap BUN Creatinine Est GFR ( Amer) Est GFR (Non-Af Amer) POC Glucose (mg/dL) Random Glucose Lactic Acid Calcium Phosphorus Magnesium Total Bilirubin AST ALT Alkaline Phosphatase Ammonia Total Creatine Kinase CK-MB (CK-2) CK-MB (CK-2) % Troponin I Total Protein Albumin Globulin Albumin/Globulin Ratio Triglycerides Cholesterol LDL Cholesterol Direct HDL Cholesterol 25-OH Vitamin D Total Procalcitonin Thyroxine (T4) TSH 3rd Generation Cortisol AM Sample Venous Blood Potassium 3.9 Urine Color Yellow Urine Appearance Clear Urine pH 5.5 Ur Specific [place] 1.020 Urine Protein Negative Urine Glucose (UA) 500 H Urine Ketones 15 H Urine Blood Negative Urine Nitrate Negative Urine Bilirubin Negative Urine Urobilinogen 0.2 Ur Leukocyte Esterase Negative Urine Opiates Screen Positive H Urine Methadone Screen Negative Ur Barbiturates Screen Negative Ur Phencyclidine Scrn Negative Ur Amphetamines Screen Negative U Benzodiazepines Scrn Negative U Oth Cocaine Metabols Negative U Cannabinoids Screen Positive H Hepatitis A IgM Ab Hep Bs Antigen Hep B Core IgM Ab Hepatitis C Antibody 10/23/16 10/23/16 10/23/16 00:25 06:00 06:00 WBC RBC Hgb Hct MCV MCH MCHC RDW Plt Count MPV Gran % Lymph % (Auto) Brooke % (Auto) Eos % (Auto) Baso % (Auto) Gran # Lymph # Brooke # Eos # Baso # pO2 62 H VBG pH 7.33 VBG pCO2 43.0 VBG HCO3 22.7 VBG Total CO2 24.0 VBG O2 Sat (Calc) 94.7 H VBG Base Excess -3.2 L VBG Potassium 4.9 Sodium 132.0 135 Chloride 105.0 100 Glucose 350 H Lactate 1.2 FiO2 21.0 Potassium 4.4 Carbon Dioxide 10 L D Anion Gap 29 H BUN 11 Creatinine 0.9 Est GFR ( Amer) > 60 Est GFR (Non-Af Amer) > 60 POC Glucose (mg/dL) Random Glucose 441 H* D Lactic Acid Calcium 8.7 Phosphorus 4.8 H Magnesium 2.2 Total Bilirubin 0.7 AST 83 H ALT 34 Alkaline Phosphatase 104 Ammonia Total Creatine Kinase 2724 H CK-MB (CK-2) 11.5 H CK-MB (CK-2) % 0.4 L Troponin I < 0.01 Total Protein 7.2 Albumin 4.5 Globulin 2.7 Albumin/Globulin Ratio 1.7 Triglycerides 69 Cholesterol 137 LDL Cholesterol Direct 63 HDL Cholesterol 66 H 25-OH Vitamin D Total Procalcitonin Thyroxine (T4) TSH 3rd Generation Cortisol AM Sample 41.4 H Venous Blood Potassium 4.9 Urine Color Urine Appearance Urine pH Ur Specific [place] Urine Protein Urine Glucose (UA) Urine Ketones Urine Blood Urine Nitrate Urine Bilirubin Urine Urobilinogen Ur Leukocyte Esterase Urine Opiates Screen Urine Methadone Screen Ur Barbiturates Screen Ur Phencyclidine Scrn Ur Amphetamines Screen U Benzodiazepines Scrn U Oth Cocaine Metabols U Cannabinoids Screen Hepatitis A IgM Ab Negative Hep Bs Antigen Negative Hep B Core IgM Ab Negative Hepatitis C Antibody Negative 10/23/16 10/23/16 10/23/16 06:00 06:00 06:11 WBC RBC Hgb Hct MCV MCH MCHC RDW Plt Count MPV Gran % Lymph % (Auto) Brooke % (Auto) Eos % (Auto) Baso % (Auto) Gran # Lymph # Brooke # Eos # Baso # pO2 VBG pH VBG pCO2 VBG HCO3 VBG Total CO2 VBG O2 Sat (Calc) VBG Base Excess VBG Potassium Sodium Chloride Glucose Lactate FiO2 Potassium Carbon Dioxide Anion Gap BUN Creatinine Est GFR ( Amer) Est GFR (Non-Af Amer) POC Glucose (mg/dL) 339 H Random Glucose Lactic Acid 12.8 H* Calcium Phosphorus Magnesium Total Bilirubin AST ALT Alkaline Phosphatase Ammonia Total Creatine Kinase CK-MB (CK-2) CK-MB (CK-2) % Troponin I Total Protein Albumin Globulin Albumin/Globulin Ratio Triglycerides Cholesterol LDL Cholesterol Direct HDL Cholesterol 25-OH Vitamin D Total 23.7 L Procalcitonin Thyroxine (T4) TSH 3rd Generation Cortisol AM Sample Venous Blood Potassium Urine Color Urine Appearance Urine pH Ur Specific [place] Urine Protein Urine Glucose (UA) Urine Ketones Urine Blood Urine Nitrate Urine Bilirubin Urine Urobilinogen Ur Leukocyte Esterase Urine Opiates Screen Urine Methadone Screen Ur Barbiturates Screen Ur Phencyclidine Scrn Ur Amphetamines Screen U Benzodiazepines Scrn U Oth Cocaine Metabols U Cannabinoids Screen Hepatitis A IgM Ab Hep Bs Antigen Hep B Core IgM Ab Hepatitis C Antibody 10/23/16 10/23/16 10/23/16 06:30 06:43 07:00 WBC 17.9 H D RBC 4.29 Hgb 13.8 L Hct 41.1 L MCV 95.8 MCH 32.2 MCHC 33.6 RDW 13.1 Plt Count 203 MPV 11.6 H Gran % 84.2 H Lymph % (Auto) 7.7 L Brooke % (Auto) 7.9 H Eos % (Auto) 0.1 L Baso % (Auto) 0.1 Gran # 15.04 H Lymph # 1.4 Brooke # 1.4 H Eos # 0.0 Baso # 0.01 pO2 VBG pH VBG pCO2 VBG HCO3 VBG Total CO2 VBG O2 Sat (Calc) VBG Base Excess VBG Potassium Sodium Chloride Glucose Lactate FiO2 Potassium Carbon Dioxide Anion Gap BUN Creatinine Est GFR ( Amer) Est GFR (Non-Af Amer) POC Glucose (mg/dL) Random Glucose Lactic Acid Calcium Phosphorus Magnesium Total Bilirubin AST ALT Alkaline Phosphatase Ammonia Total Creatine Kinase CK-MB (CK-2) CK-MB (CK-2) % Troponin I Total Protein Albumin Globulin Albumin/Globulin Ratio Triglycerides Cholesterol LDL Cholesterol Direct HDL Cholesterol 25-OH Vitamin D Total Procalcitonin 0.30 Thyroxine (T4) 9.1 TSH 3rd Generation 3.14 Cortisol AM Sample Venous Blood Potassium Urine Color Urine Appearance Urine pH Ur Specific [place] Urine Protein Urine Glucose (UA) Urine Ketones Urine Blood Urine Nitrate Urine Bilirubin Urine Urobilinogen Ur Leukocyte Esterase Urine Opiates Screen Urine Methadone Screen Ur Barbiturates Screen Ur Phencyclidine Scrn Ur Amphetamines Screen U Benzodiazepines Scrn U Oth Cocaine Metabols U Cannabinoids Screen Hepatitis A IgM Ab Hep Bs Antigen Hep B Core IgM Ab Hepatitis C Antibody 10/23/16 10/23/16 10/23/16 07:55 12:23 13:00 WBC RBC Hgb Hct MCV MCH MCHC RDW Plt Count MPV Gran % Lymph % (Auto) Brooke % (Auto) Eos % (Auto) Baso % (Auto) Gran # Lymph # Brooke # Eos # Baso # pO2 VBG pH VBG pCO2 VBG HCO3 VBG Total CO2 VBG O2 Sat (Calc) VBG Base Excess VBG Potassium Sodium 138 Chloride 105 Glucose Lactate FiO2 Potassium 3.5 L Carbon Dioxide 25 Anion Gap 12 BUN 12 Creatinine 0.7 Est GFR ( Amer) > 60 Est GFR (Non-Af Amer) > 60 POC Glucose (mg/dL) 433 H* 241 H Random Glucose 165 H Lactic Acid Calcium 8.4 Phosphorus Magnesium Total Bilirubin AST ALT Alkaline Phosphatase Ammonia Total Creatine Kinase 2575 H CK-MB (CK-2) 9.3 H CK-MB (CK-2) % 0.4 L Troponin I < 0.01 Total Protein Albumin Globulin Albumin/Globulin Ratio Triglycerides Cholesterol LDL Cholesterol Direct HDL Cholesterol 25-OH Vitamin D Total Procalcitonin Thyroxine (T4) TSH 3rd Generation Cortisol AM Sample Venous Blood Potassium Urine Color Urine Appearance Urine pH Ur Specific [place] Urine Protein Urine Glucose (UA) Urine Ketones Urine Blood Urine Nitrate Urine Bilirubin Urine Urobilinogen Ur Leukocyte Esterase Urine Opiates Screen Urine Methadone Screen Ur Barbiturates Screen Ur Phencyclidine Scrn Ur Amphetamines Screen U Benzodiazepines Scrn U Oth Cocaine Metabols U Cannabinoids Screen Hepatitis A IgM Ab Hep Bs Antigen Hep B Core IgM Ab Hepatitis C Antibody 10/23/16 10/23/16 10/23/16 13:31 14:10 16:16 WBC RBC Hgb Hct MCV MCH MCHC RDW Plt Count MPV Gran % Lymph % (Auto) Brooke % (Auto) Eos % (Auto) Baso % (Auto) Gran # Lymph # Brooke # Eos # Baso # pO2 41 VBG pH 7.37 VBG pCO2 43.0 VBG HCO3 24.9 VBG Total CO2 26.2 VBG O2 Sat (Calc) 83.0 H VBG Base Excess -0.5 L VBG Potassium 3.7 Sodium 136.0 Chloride 109.0 H Glucose 163 H Lactate 1.1 FiO2 21.0 Potassium Carbon Dioxide Anion Gap BUN Creatinine Est GFR ( Amer) Est GFR (Non-Af Amer) POC Glucose (mg/dL) 184 H 182 H Random Glucose Lactic Acid Calcium Phosphorus Magnesium Total Bilirubin AST ALT Alkaline Phosphatase Ammonia Total Creatine Kinase CK-MB (CK-2) CK-MB (CK-2) % Troponin I Total Protein Albumin Globulin Albumin/Globulin Ratio Triglycerides Cholesterol LDL Cholesterol Direct HDL Cholesterol 25-OH Vitamin D Total Procalcitonin Thyroxine (T4) TSH 3rd Generation Cortisol AM Sample Venous Blood Potassium 3.7 Urine Color Urine Appearance Urine pH Ur Specific [place] Urine Protein Urine Glucose (UA) Urine Ketones Urine Blood Urine Nitrate Urine Bilirubin Urine Urobilinogen Ur Leukocyte Esterase Urine Opiates Screen Urine Methadone Screen Ur Barbiturates Screen Ur Phencyclidine Scrn Ur Amphetamines Screen U Benzodiazepines Scrn U Oth Cocaine Metabols U Cannabinoids Screen Hepatitis A IgM Ab Hep Bs Antigen Hep B Core IgM Ab Hepatitis C Antibody 10/23/16 10/23/16 16:40 17:13 WBC RBC Hgb Hct MCV MCH MCHC RDW Plt Count MPV Gran % Lymph % (Auto) Brooke % (Auto) Eos % (Auto) Baso % (Auto) Gran # Lymph # Brooke # Eos # Baso # pO2 VBG pH VBG pCO2 VBG HCO3 VBG Total CO2 VBG O2 Sat (Calc) VBG Base Excess VBG Potassium Sodium 135 Chloride 104 Glucose Lactate FiO2 Potassium 3.6 Carbon Dioxide 24 Anion Gap 11 BUN 12 Creatinine 0.7 Est GFR ( Amer) > 60 Est GFR (Non-Af Amer) > 60 POC Glucose (mg/dL) 199 H Random Glucose 186 H Lactic Acid Calcium 8.3 L Phosphorus Magnesium Total Bilirubin AST ALT Alkaline Phosphatase Ammonia Total Creatine Kinase CK-MB (CK-2) CK-MB (CK-2) % Troponin I Total Protein Albumin Globulin Albumin/Globulin Ratio Triglycerides Cholesterol LDL Cholesterol Direct HDL Cholesterol 25-OH Vitamin D Total Procalcitonin Thyroxine (T4) TSH 3rd Generation Cortisol AM Sample Venous Blood Potassium Urine Color Urine Appearance Urine pH Ur Specific [place] Urine Protein Urine Glucose (UA) Urine Ketones Urine Blood Urine Nitrate Urine Bilirubin Urine Urobilinogen Ur Leukocyte Esterase Urine Opiates Screen Urine Methadone Screen Ur Barbiturates Screen Ur Phencyclidine Scrn Ur Amphetamines Screen U Benzodiazepines Scrn U Oth Cocaine Metabols U Cannabinoids Screen Hepatitis A IgM Ab Hep Bs Antigen Hep B Core IgM Ab Hepatitis C Antibody Attending/Attestation - Attestation I have personally seen and examined this patient.: Yes I have fully participated in the care of the patient.: Yes I have reviewed all pertinent clinical information: Yes Notes (Text): 10/23/16 18:55 31 yo male with DM type 1, presented with AMS, initially suspected to be a seizures. Patient however shortly recovered. EEG results are negative for seizures. MRI is pending. Meanwhile, patient was found to be in DKA, fluid resuscitation started and insulin drip started as well. AG resolved, insulin drip switched to s/c long acting formulation. Will optimize oral nutrition and avoid hypoglycemia. DVT/GI prophylaxis ccm time 40 min
[2016-10-23 14:04] LABS: BLOOD UREA NITROGEN 12 mg/dL (7-21); CALCIUM 8.4 mg/dL (8.4-10.5); GFR AFRICAN-AMERICAN > 60; GFR NON-AFRICAN AMERICAN > 60
[2016-10-23 14:13] LABS: CORTISOL AM 41.4 ug/dL (4.46-22.7)
[2016-10-23 14:18] LABS: TROPONIN I < 0.01 ng/mL
[2016-10-23 14:23] LABS: VENOUS BLOOD GAS BASE EXCESS -0.5 mmol/L (0.0-2.0); VENOUS BLOOD GAS PO2 41 mm/Hg (30-55); VENOUS BLOOD PH 7.37 (7.32-7.43)
[2016-10-23 14:47] LABS: CK MB% 0.4 % (2.5-3.0); CK-MB 9.3 ng/mL (0.0-3.6)
--- NOTE | 2016-10-23 15:10 | CP.PCM.PN ---
<Ibrahima Aguirre - Last Filed: 10/23/16 16:27> Subjective - Date & Time of Evaluation Date of Evaluation: 10/23/16 Time of Evaluation: 14:00 - Subjective Subjective: Internal Medicine Progress Note for Dr. Eastman Patient seen and examined at bedside in the ICU. Today is hospital day 2. Overnight, the patient became agitated, pulling lines, and began foaming at the mouth. A rapid response was called (please see rapid response note for further details), and given concerns for possible seizure, Ativan 2mg IV was administered, which resolved the agitated behavior. Patient was also found to be back in DKA, with sugars > 400 and an anion gap of 25, so patient was transferred to the ICU. At time of exam, patient currently feeling fatigued, and complains of persistent sharp back, right shoulder and lateral/posterior neck pain. No memory of events during rapid response. Denies chest pain, shortness of breath, nausea, emesis, focal weakness, fevers/chills. Objective - Vital Signs/Intake and Output Vital Signs (last 24 hours): Temp Pulse Resp BP Pulse Ox 98.2 F 74 18 133/72 96 10/23/16 12:38 10/23/16 06:00 10/23/16 04:00 10/23/16 04:00 10/22/16 21:50 Intake and Output: 10/23/16 10/23/16 06:59 18:59 Intake Total 290 Output Total 1625 0 Balance -1335 0 - Medications Medications: Current Medications Cyclobenzaprine HCl (Flexeril) 5 mg PO TID PRN PRN Reason: Muscle spasm Last Admin: 10/22/16 21:44 Dose: 5 mg Enoxaparin Sodium (Lovenox) 40 mg SC DAILY [facility] PRN Reason: Protocol Last Admin: 10/23/16 11:22 Dose: 40 mg Ergocalciferol (Drisdol 50,000 Intl Units Cap) 1 cap PO Q7D [facility] Folic Acid (Folic Acid) 1 mg PO DAILY [facility] Last Admin: 10/23/16 11:15 Dose: 1 mg Hydromorphone HCl (Dilaudid) 0.5 mg IVP Q4H PRN PRN Reason: Muscle spasm Last Admin: 10/23/16 12:08 Dose: 0.5 mg Levetiracetam (Keppra 500mg Ivpb) 500 mg in 100 mls @ 420 mls/hr IV Q12 [facility] Last Admin: 10/23/16 11:17 Dose: 420 mls/hr Piperacillin Sod/Tazobactam Sod (Zosyn 3.375 In Ns 100ml) 100 mls @ 200 mls/hr IVPB Q6 [facility] PRN Reason: Protocol Stop: 10/30/16 12:01 Sodium Bicarbonate 50 meq/ (Sodium Chloride) 1,050 mls @ 200 mls/hr IV .Q5H15M [facility] Last Admin: 10/23/16 09:23 Dose: 200 mls/hr Vancomycin HCl (Vancomycin 1gm) 1 gm in 250 mls @ 167 mls/hr IVPB Q12H [facility] PRN Reason: Protocol Stop: 10/30/16 08:16 Last Admin: 10/23/16 08:39 Dose: 167 mls/hr Insulin Human Regular 100 (units/ Sodium Chloride) 100 mls @ 2 mls/hr IV .Q24H PRN; Protocol; 2 UNITS/HR PRN Reason: TITRATE PER MD ORDER Sodium Chloride (Sodium Chloride 0.9%) 1,000 mls @ 200 mls/hr IV .Q5H [facility] Dextrose (Dextrose 5% In Water 1000 Ml) 1,000 mls @ 200 mls/hr IV .Q5H [facility] Insulin Detemir (Levemir) 20 unit SC HS [facility] Insulin Detemir (Levemir) 6 unit SC DAILY [facility] Insulin Human Lispro (Humalog) 6 units SC AC [facility] Last Admin: 10/23/16 08:36 Dose: 6 units Insulin Human Lispro (Humalog Low) 0 units SC ACHS [facility] PRN Reason: Protocol Last Admin: 10/23/16 08:37 Dose: 5 units Lidocaine (Lidoderm) 1 ea TD DAILY [facility] Metoclopramide HCl (Reglan) 10 mg IVP Q6H [facility] Last Admin: 10/23/16 05:30 Dose: 10 mg Nicotine (Nicoderm Cq) 1 patch TD DAILY [facility] Ondansetron HCl (Zofran Inj) 4 mg IVP Q4H PRN PRN Reason: Nausea/Vomiting Last Admin: 10/23/16 00:39 Dose: 4 mg Pantoprazole Sodium (Protonix Inj) 40 mg IVP 0600 [facility] Last Admin: 10/23/16 05:26 Dose: 40 mg Thiamine HCl (Vitamin B1 Inj) 100 mg IV DAILY [facility] Last Admin: 10/23/16 11:18 Dose: 100 mg - Labs Labs: 10/23/16 06:43 10/23/16 13:00 PT 10.8 Seconds (9.9-11.8) 10/22/16 15:50 INR 1.00 (0.93-1.08) 10/22/16 15:50 APTT 27.1 Seconds (23.7-30.8) 10/22/16 15:50 - Constitutional Appears: Non-toxic, No Acute Distress, Other (lethargic, recently received ativan) - Head Exam Head Exam: absent: ATRAUMATIC Additional comments: Mild contusion along anterior midline of skull, some erythema visible, no gross deformity - Eye Exam Eye Exam: EOMI, Normal appearance, PERRL. absent: Conjunctival injection, Scleral icterus Pupil Exam: NORMAL ACCOMODATION, PERRL. absent: Fixed, Irregular, Unequal - ENT Exam ENT Exam: Mucous Membranes Moist. absent: Mucous Membranes Dry - Neck Exam Neck Exam: Tenderness (laterally and posteriorly, no anterior tenderness of palpation). absent: Full ROM (restricted 2/2 pain), Lymphadenopathy, Thyromegaly - Respiratory Exam Respiratory Exam: Clear to Ausculation Bilateral, NORMAL BREATHING PATTERN. absent: Accessory Muscle Use, Chest Wall Tenderness, Decreased Breath Sounds, Rales, Rhonchi, Wheezes - Cardiovascular Exam Cardiovascular Exam: REGULAR RHYTHM, RRR, +S1, +S2. absent: Bradycardia, Tachycardia, Irregular Rhythm, JVD, +S4 - GI/Abdominal Exam GI & Abdominal Exam: Soft, Normal Bowel Sounds. absent: Distended, Firm, Rigid , Tenderness, Diminished Bowel Sounds, Hyperactive Bowel Sounds, Hypoactive Bowel Sounds - Extremities Exam Extremities Exam: Normal Capillary Refill, Normal Inspection. absent: Calf Tenderness, Joint Swelling, Pedal Edema, Tenderness - Neurological Exam Additional comments: Somnolent but arousable, drifts back to somnolence quickly but easy to re-awake , remains oriented, recently received ativan, spontaneous movement of all extremities when awake, sensory intact and equal in bilateral upper and lower extremities - Psychiatric Exam Psychiatric exam: Normal Affect (when awake), Normal Mood (when awake) - Skin Skin Exam: Dry, Intact (some scattered abrasions on bilateral LE at knees, otherwise intact), Normal Color, Warm Assessment and Plan - Assessment and Plan (Free Text) Assessment: This is a 31 yo M with PMH of IDDM who presented to [facility] s/p syncopal episode with fall and head trauma (witnessed) and was found to be in DKA. He was transferred to the ICU due to re-opening of his gap and suspected seizure activity this AM. Plan: 1) Syncope with head injury - 2/2 DKA vs seizure vs substance abuse - Cardio (Dr. Alvarado) and Neuro (Dr. Mae) consulted, appreciate all recs - ECHO pending - EKG NSR - Tropes: Negative X 1; trend - MRI Brain unobtainable at this time as patient cannot lay still (due to neck/ back pain, despite ativan), will attempt again tomorrow - CT Cervical Spine, CT head, and CT abd/pelvis all unremarkable - Keppra 500mg IV q12 for seizure ppx 2) DKA - Endo (Dr. Sebastian) consulted, appreciate all recs - Transitioning from Drip to basal insulin - continue to monitor - Continue BMPs q4 - monitor and replete K as needed, 3.5 today, repleted 3) Possible Seizure - episode this AM suspicious for seizure, TECHNICIAN ANATOMIC PATHOLOGY called (refer to TECHNICIAN ANATOMIC PATHOLOGY note for details), resolved with Ativan 2mg IV once - Neuro (Dr. Mae) consulted, appreciate all recs - MRI Brain unobtainable at this time as patient cannot lay still (due to neck/ back pain, despite ativan), will attempt again tomorrow - EEG obtained, pending read 4) Possible Rhabdomyolysis - CK 2575, continue to trend - UA only notable for elevated glucose and ketones - NS D5 1/2NS at 200cc/hr - IV Dilaudid at 0.5mg q4 prn ordered 5) SIRS Criteria - Lactate elevated, HR elevated, RR elevated, WBC elevated - Monitor labs, monitor vitals - No source of infection at current time - leukocytosis may be 2/2 DKA, stress/pain from fall - covering empirically with vanc/zosyn - ID (Dr. Zapata) consulted, appreciate all recs Dispo: ICU, pending transition from Insulin drip to basal and with meals coverage, pending EEG read, pending MRI FEN: Consistent carb diet, D5 1/2NS 200cc/hr Access: Peripheral IV Consults: Neuro, Endo, Cardio, ID, ICU Ppx: Protonix for GI, Lovenox for DVT Patient reviewed and discussed with attending, Dr. Eastman <Vikash Eastman U - Last Filed: 10/24/16 13:26> Objective - Vital Signs/Intake and Output Vital Signs (last 24 hours): Temp Pulse Resp BP Pulse Ox 98.8 F 75 17 129/73 97 10/24/16 00:00 10/24/16 07:00 10/24/16 07:00 10/24/16 07:00 10/24/16 07:00 Intake and Output: 10/24/16 10/24/16 06:59 18:59 Intake Total 3190 Output Total 600 Balance 2590 - Medications Medications: Current Medications Cyclobenzaprine HCl (Flexeril) 5 mg PO TID PRN PRN Reason: Muscle spasm Last Admin: 10/22/16 21:44 Dose: 5 mg Enoxaparin Sodium (Lovenox) 40 mg SC DAILY [facility] PRN Reason: Protocol Last Admin: 10/23/16 11:22 Dose: 40 mg Ergocalciferol (Drisdol 50,000 Intl Units Cap) 1 cap PO Q7D [facility] Folic Acid (Folic Acid) 1 mg PO DAILY [facility] Last Admin: 10/23/16 11:15 Dose: 1 mg Hydromorphone HCl (Dilaudid) 0.5 mg IVP Q4H PRN PRN Reason: Muscle spasm Last Admin: 10/24/16 05:38 Dose: 0.5 mg Levetiracetam (Keppra 500mg Ivpb) 500 mg in 100 mls @ 420 mls/hr IV Q12 [facility] Last Admin: 10/23/16 23:32 Dose: 420 mls/hr Piperacillin Sod/Tazobactam Sod (Zosyn 3.375 In Ns 100ml) 100 mls @ 200 mls/hr IVPB Q6 [facility] PRN Reason: Protocol Stop: 10/30/16 12:01 Last Admin: 10/24/16 05:32 Dose: 200 mls/hr Sodium Bicarbonate 50 meq/ (Sodium Chloride) 1,050 mls @ 200 mls/hr IV .Q5H15M [facility] Last Admin: 10/23/16 09:23 Dose: 200 mls/hr Vancomycin HCl (Vancomycin 1gm) 1 gm in 250 mls @ 167 mls/hr IVPB Q12H [facility] PRN Reason: Protocol Stop: 10/30/16 08:16 Last Admin: 10/23/16 19:37 Dose: 167 mls/hr Sodium Chloride (Sodium Chloride 0.9%) 1,000 mls @ 200 mls/hr IV .Q5H [facility] Last Admin: 10/24/16 05:37 Dose: 200 mls/hr Potassium Chloride (Potassium Chloride 20 Meq/100 Ml) 20 meq in 100 mls @ 50 mls/hr IVPB Q2H [facility] Stop: 10/24/16 11:59 Insulin Detemir (Levemir) 20 unit SC HS [facility] Last Admin: 10/24/16 00:28 Dose: Not Given Insulin Detemir (Levemir) 6 unit SC DAILY [facility] Insulin Human Lispro (Humalog) 6 units SC AC [facility] Last Admin: 10/23/16 18:00 Dose: Not Given Insulin Human Lispro (Humalog Low) 0 units SC ACHS [facility] PRN Reason: Protocol Last Admin: 10/24/16 08:06 Dose: Not Given Lidocaine (Lidoderm) 1 ea TD DAILY [facility] Metoclopramide HCl (Reglan) 10 mg IVP Q6H [facility] Last Admin: 10/24/16 05:30 Dose: 10 mg Nicotine (Nicoderm Cq) 1 patch TD DAILY [facility] Last Admin: 10/24/16 05:32 Dose: 1 patch Ondansetron HCl (Zofran Inj) 4 mg IVP Q4H PRN PRN Reason: Nausea/Vomiting Last Admin: 10/23/16 00:39 Dose: 4 mg Pantoprazole Sodium (Protonix Inj) 40 mg IVP 0600 [facility] Last Admin: 10/24/16 05:28 Dose: 40 mg Thiamine HCl (Vitamin B1 Inj) 100 mg IV DAILY [facility] Last Admin: 10/23/16 11:18 Dose: 100 mg - Labs Labs: 10/24/16 05:30 10/24/16 05:30 PT 10.8 Seconds (9.9-11.8) 10/22/16 15:50 INR 1.00 (0.93-1.08) 10/22/16 15:50 APTT 27.1 Seconds (23.7-30.8) 10/22/16 15:50 Assessment and Plan - Assessment and Plan (Free Text) Assessment: PATIENT SEEN AND EXAMINED IN ROOM 266-3,FATHER AT BEDSIDE A/P: DKA S/P TECHNICIAN ANATOMIC PATHOLOGY SYNCOPE ?SEIZURE POSSIBLE NEW ONSET SEIZURE S/P FALL UNCONTROLLED IDDM WITH HYPERGLYCEMIA RHABDOMYOLYSIS LEUCOCYTOSIS SIRS TACHYPNEA CERVICAL SPINE SPRAIN VS CONTUSION INCREASED AG METABOLIC ACIDOSIS LACTIC ACIDOSIS HYPOPHOSPHETEMIA. SIRS DKA LACTIC ACIDOSIS INCREASED ANION GAP METABOLIC ACIDOSIS MARIJUANA ABUSE BILATERAL CEREBRAL DYSFUNCTION HYPOVITAMINOSIS-D ?/WITHDRAWAL SYNDROME. PLANS PER ORDERS. PATIENT AND FAMILY EXPLAINED ALL DETAILS TRANSFER TO ICU FOR FURTHER MANAGEMENT.
[2016-10-23 15:33] LABS: HEPATITIS B SURFACE AG NEGATIVE (NEGATIVE)
[2016-10-23 15:38] LABS: HEPATITIS A IGM NEGATIVE (NEGATIVE)
[2016-10-23 15:42] LABS: HEPATITIS B CORE AB NEGATIVE (NEGATIVE)
[2016-10-23 15:50] LABS: HEPATITIS C ANTIBODY NEGATIVE (NEGATIVE)
[2016-10-23] MEDS ORDERED: Insulin Detemir 100 units/ml Vial (Levemir) SC ONE (16:00)
--- NOTE | 2016-10-23 16:04 | CP.PCM.PN ---
Subjective - Date & Time of Evaluation Date of Evaluation: 10/23/16 Time of Evaluation: 14:00 - Subjective Subjective: EEG REPORT: CONDITION OF THIS RECORDING: DROWSY DIAGNOSIS: EVALUATE FOR SEIZURE MEDICATIONS:l REVIEWED BY NURSE'S RECONCILIATION INTERPRETATION: THIS IS A 16 CHANNEL INTERNATIONAL RECORDING. THE BACKEND OF THIS TRACING WAS COMPOSED OF 6-7 CYCLES PER SECOND. THERE WAS SMALL AMOUNT OF BETA ACTIVITY OF 16-20 CPS IN THE RECORDING AND INCREASE AMOUNT OF THETA ACTIVITY OF 5-7 CPS SEEN IN THIS TRACING. DROWSINESS WAS CHARACTERIZED BY MIXED BETA AND THETA ACTIVITIES. SLEEP WAS CHARACTERIZED BY VERTEX TRANSIENT WAVE, SLEEP SPINDLES, AND B/L SLOWING. PHOTIC STIMULATION SHOWED NO CHANGE IN THE TRACING. NO PAROXYSMAL ACTIVITY NOTED IN THIS RECORDING. EMG ARTIFICAT WAS SEEN. CONCLUSION: THIS IS AN ABNORMAL EEG SHOWING MILD B/L SLOWING THROUGHOUT THE RECORDING CONSISTENT WITH MILD B/L CEREBRAL DYSFUNCTION. NO SEIZURE ACTIVITY. Mercedes KING MD Objective - Vital Signs/Intake and Output Vital Signs (last 24 hours): Temp Pulse Resp BP Pulse Ox 98.2 F 74 18 133/72 96 10/23/16 12:38 10/23/16 06:00 10/23/16 04:00 10/23/16 04:00 10/22/16 21:50 Intake and Output: 10/23/16 10/23/16 06:59 18:59 Intake Total 290 Output Total 1625 0 Balance -1335 0 - Medications Medications: Current Medications Cyclobenzaprine HCl (Flexeril) 5 mg PO TID PRN PRN Reason: Muscle spasm Last Admin: 10/22/16 21:44 Dose: 5 mg Enoxaparin Sodium (Lovenox) 40 mg SC DAILY [facility] PRN Reason: Protocol Last Admin: 10/23/16 11:22 Dose: 40 mg Ergocalciferol (Drisdol 50,000 Intl Units Cap) 1 cap PO Q7D [facility] Folic Acid (Folic Acid) 1 mg PO DAILY [facility] Last Admin: 10/23/16 11:15 Dose: 1 mg Hydromorphone HCl (Dilaudid) 0.5 mg IVP Q4H PRN PRN Reason: Muscle spasm Last Admin: 10/23/16 12:08 Dose: 0.5 mg Levetiracetam (Keppra 500mg Ivpb) 500 mg in 100 mls @ 420 mls/hr IV Q12 [facility] Last Admin: 10/23/16 11:17 Dose: 420 mls/hr Piperacillin Sod/Tazobactam Sod (Zosyn 3.375 In Ns 100ml) 100 mls @ 200 mls/hr IVPB Q6 [facility] PRN Reason: Protocol Stop: 10/30/16 12:01 Sodium Bicarbonate 50 meq/ (Sodium Chloride) 1,050 mls @ 200 mls/hr IV .Q5H15M [facility] Last Admin: 10/23/16 09:23 Dose: 200 mls/hr Vancomycin HCl (Vancomycin 1gm) 1 gm in 250 mls @ 167 mls/hr IVPB Q12H [facility] PRN Reason: Protocol Stop: 10/30/16 08:16 Last Admin: 10/23/16 08:39 Dose: 167 mls/hr Insulin Human Regular 100 (units/ Sodium Chloride) 100 mls @ 2 mls/hr IV .Q24H PRN; Protocol; 2 UNITS/HR PRN Reason: TITRATE PER MD ORDER Sodium Chloride (Sodium Chloride 0.9%) 1,000 mls @ 200 mls/hr IV .Q5H [facility] Dextrose (Dextrose 5% In Water 1000 Ml) 1,000 mls @ 200 mls/hr IV .Q5H [facility] Potassium Chloride (Potassium Chloride 10 Meq/100 Ml) 10 meq in 100 mls @ 100 mls/hr IVPB Q2H [facility] Stop: 10/23/16 18:59 Insulin Detemir (Levemir) 20 unit SC HS [facility] Insulin Detemir (Levemir) 6 unit SC DAILY [facility] Insulin Human Lispro (Humalog) 6 units SC AC [facility] Last Admin: 10/23/16 08:36 Dose: 6 units Insulin Human Lispro (Humalog Low) 0 units SC ACHS [facility] PRN Reason: Protocol Last Admin: 10/23/16 08:37 Dose: 5 units Lidocaine (Lidoderm) 1 ea TD DAILY [facility] Metoclopramide HCl (Reglan) 10 mg IVP Q6H [facility] Last Admin: 10/23/16 05:30 Dose: 10 mg Nicotine (Nicoderm Cq) 1 patch TD DAILY [facility] Ondansetron HCl (Zofran Inj) 4 mg IVP Q4H PRN PRN Reason: Nausea/Vomiting Last Admin: 10/23/16 00:39 Dose: 4 mg Pantoprazole Sodium (Protonix Inj) 40 mg IVP 0600 [facility] Last Admin: 10/23/16 05:26 Dose: 40 mg Thiamine HCl (Vitamin B1 Inj) 100 mg IV DAILY [facility] Last Admin: 10/23/16 11:18 Dose: 100 mg - Labs Labs: 10/23/16 06:43 10/23/16 13:00 PT 10.8 Seconds (9.9-11.8) 10/22/16 15:50 INR 1.00 (0.93-1.08) 10/22/16 15:50 APTT 27.1 Seconds (23.7-30.8) 10/22/16 15:50
[2016-10-23 16:53] LABS: BLOOD UREA NITROGEN 12 mg/dL (7-21); CALCIUM 8.3 mg/dL (8.4-10.5); GFR AFRICAN-AMERICAN > 60; GFR NON-AFRICAN AMERICAN > 60
[2016-10-23] MEDS ORDERED: Insulin Detemir 100 units/ml Vial (Levemir) SC SCH (22:00)
[2016-10-24] MEDS: Sodium Chloride 0.9% 1,000 ML IV SCH ×3 (00:21→19:38)
[2016-10-24] MEDS: Piperacillin/Tazobact 3.375 gm 100 ML IVPB SCH ×4 (00:33→18:24)
[2016-10-24] MEDS: HYDROmorphone 0.5 mg/0.5 ml ISec IVP PRN ×2 (01:36→05:38)
[2016-10-24 06:32] LABS: BASO # 0.01 K/mm3 (0.0-2.0); BASO % 0.1 % (0.0-3.0); EOS % 0.3 % (1.5-5.0); GRAN # 6.91 (1.4-6.5); GRAN % 70.7 % (50.0-68.0); HEMOGLOBIN 11.2 gm/dL (14.0-18.0); LYMPH # 1.6 (1.2-3.4); MEAN CORPUSCULAR HEMOGLOBIN 31.4 pg (25.0-35.0); MEAN CORPUSCULAR HGB CONC 33.7 g/dl (31.0-37.0); MEAN PLATELET VOLUME 10.5 fl (7.0-11.0); MONO # 1.3 (0.1-0.6); MONO % 12.9 % (1.0-6.0); PLATELET COUNT 154 10^3/uL (120.0-450.0); RBC 3.57 10^6/uL (3.5-6.1); RED CELL DISTRIBUTION WIDTH 13.3 % (11.5-14.5); WHITE BLOOD COUNT 9.8 10^3/ul (4.5-11.0)
[2016-10-24 06:50] LABS: ALB/GLOB RATIO 1.3 (1.1-1.8); ALBUMIN 3.3 g/dL (3.0-4.8); ALT/SGPT 42 U/L (7-56); AST/SGOT 85 U/L (15-59); BILIRUBIN,DIRECT 0.2 mg/dL (0.0-0.4); BLOOD UREA NITROGEN 11 mg/dL (7-21); CALCIUM 8.1 mg/dL (8.4-10.5); GFR AFRICAN-AMERICAN > 60; GFR NON-AFRICAN AMERICAN > 60; MAGNESIUM 1.8 mg/dL (1.7-2.2)
[2016-10-24] MEDS ORDERED: Potassium Chloride 40 mEq/30 ml LIQ UD PO ONE (07:50)
[2016-10-24] MEDS: Insulin Lispro (humaLOG) LOW Coverage SC SCH ×4 (08:06→21:58)
[2016-10-24 08:57] LABS: TROPONIN I < 0.01 ng/mL
[2016-10-24 09:14] LABS: CK-MB 4.1 ng/mL (0.0-3.6)
--- NOTE | 2016-10-24 09:52 | CP.PCM.PN ---
Subjective - Date & Time of Evaluation Date of Evaluation: 10/24/16 Time of Evaluation: 08:40 - Subjective Subjective: Comfortable in bed, more awake today, less neck pain and able to turn his head better now, no fevers overnight. Objective - Vital Signs/Intake and Output Vital Signs (last 24 hours): Temp Pulse Resp BP Pulse Ox 98.8 F 67 17 126/77 97 10/24/16 00:00 10/24/16 02:00 10/24/16 01:00 10/24/16 01:00 10/24/16 01:00 Intake and Output: 10/23/16 10/24/16 18:59 06:59 Intake Total 2500 Output Total 900 Balance 1600 - Medications Medications: Current Medications Cyclobenzaprine HCl (Flexeril) 5 mg PO TID PRN PRN Reason: Muscle spasm Last Admin: 10/22/16 21:44 Dose: 5 mg Enoxaparin Sodium (Lovenox) 40 mg SC DAILY [facility] PRN Reason: Protocol Last Admin: 10/23/16 11:22 Dose: 40 mg Ergocalciferol (Drisdol 50,000 Intl Units Cap) 1 cap PO Q7D [facility] Folic Acid (Folic Acid) 1 mg PO DAILY [facility] Last Admin: 10/23/16 11:15 Dose: 1 mg Hydromorphone HCl (Dilaudid) 0.5 mg IVP Q4H PRN PRN Reason: Muscle spasm Last Admin: 10/24/16 05:38 Dose: 0.5 mg Levetiracetam (Keppra 500mg Ivpb) 500 mg in 100 mls @ 420 mls/hr IV Q12 [facility] Last Admin: 10/23/16 23:32 Dose: 420 mls/hr Piperacillin Sod/Tazobactam Sod (Zosyn 3.375 In Ns 100ml) 100 mls @ 200 mls/hr IVPB Q6 [facility] PRN Reason: Protocol Stop: 10/30/16 12:01 Last Admin: 10/24/16 05:32 Dose: 200 mls/hr Sodium Bicarbonate 50 meq/ (Sodium Chloride) 1,050 mls @ 200 mls/hr IV .Q5H15M [facility] Last Admin: 10/23/16 09:23 Dose: 200 mls/hr Vancomycin HCl (Vancomycin 1gm) 1 gm in 250 mls @ 167 mls/hr IVPB Q12H [facility] PRN Reason: Protocol Stop: 10/30/16 08:16 Last Admin: 10/23/16 19:37 Dose: 167 mls/hr Sodium Chloride (Sodium Chloride 0.9%) 1,000 mls @ 200 mls/hr IV .Q5H [facility] Last Admin: 10/24/16 05:37 Dose: 200 mls/hr Insulin Detemir (Levemir) 20 unit SC HS [facility] Last Admin: 10/24/16 00:28 Dose: Not Given Insulin Detemir (Levemir) 6 unit SC DAILY [facility] Insulin Human Lispro (Humalog) 6 units SC AC [facility] Last Admin: 10/23/16 18:00 Dose: Not Given Insulin Human Lispro (Humalog Low) 0 units SC ACHS [facility] PRN Reason: Protocol Last Admin: 10/23/16 23:27 Dose: Not Given Lidocaine (Lidoderm) 1 ea TD DAILY [facility] Metoclopramide HCl (Reglan) 10 mg IVP Q6H [facility] Last Admin: 10/24/16 05:30 Dose: 10 mg Nicotine (Nicoderm Cq) 1 patch TD DAILY [facility] Last Admin: 10/24/16 05:32 Dose: 1 patch Ondansetron HCl (Zofran Inj) 4 mg IVP Q4H PRN PRN Reason: Nausea/Vomiting Last Admin: 10/23/16 00:39 Dose: 4 mg Pantoprazole Sodium (Protonix Inj) 40 mg IVP 0600 [facility] Last Admin: 10/24/16 05:28 Dose: 40 mg Thiamine HCl (Vitamin B1 Inj) 100 mg IV DAILY [facility] Last Admin: 10/23/16 11:18 Dose: 100 mg - Labs Labs: 10/23/16 06:43 10/23/16 16:40 PT 10.8 Seconds (9.9-11.8) 10/22/16 15:50 INR 1.00 (0.93-1.08) 10/22/16 15:50 APTT 27.1 Seconds (23.7-30.8) 10/22/16 15:50 - Constitutional Appears: Non-toxic - Head Exam Head Exam: NORMAL INSPECTION - ENT Exam ENT Exam: Mucous Membranes Moist - Neck Exam Neck Exam: absent: Lymphadenopathy, Meningismus - Respiratory Exam Respiratory Exam: Decreased Breath Sounds - Cardiovascular Exam Cardiovascular Exam: +S1, +S2 - GI/Abdominal Exam GI & Abdominal Exam: Soft. absent: Tenderness Assessment and Plan - Assessment and Plan (Free Text) Plan: Assessment Systemic Inflammatory Response Syndrome in a patient with hyperglycemia, R/O sepsis so far no source has been identified Fall with trauma to the head and new onset seizure DM, poorly compliant hypothyroidism Plan blood cx are negative - will d/c Vancomycin and continue Zosyn for now (day 2) - if cultures continues to be negative will d/c Zosyn as well MRI brain reviewed
--- NOTE | 2016-10-24 09:54 | CP.PCM.PN ---
<Ibrahima Aguirre - Last Filed: 10/24/16 13:03> Subjective - Date & Time of Evaluation Date of Evaluation: 10/24/16 Time of Evaluation: 07:40 - Subjective Subjective: Internal Medicine Progress Note for Dr. Eastman Patient seen and examined at bedside in the ICU. Today is hospital day 3. No acute events overnight. Currently complaining of persisting significant head, neck, and upper back pain, same as yesterday but slightly improved. Pending MRI today. Denies chest pain, shortness of breath, syncope/near-syncope, dizziness, room-spinning, nausea/emesis, diarrhea, dysuria/hematuria. Objective - Vital Signs/Intake and Output Vital Signs (last 24 hours): Temp Pulse Resp BP Pulse Ox 98.8 F 75 17 129/73 97 10/24/16 00:00 10/24/16 07:00 10/24/16 07:00 10/24/16 07:00 10/24/16 07:00 Intake and Output: 10/24/16 10/24/16 06:59 18:59 Intake Total 3190 Output Total 600 Balance 2590 - Medications Medications: Current Medications Cyclobenzaprine HCl (Flexeril) 5 mg PO TID PRN PRN Reason: Muscle spasm Last Admin: 10/22/16 21:44 Dose: 5 mg Enoxaparin Sodium (Lovenox) 40 mg SC DAILY [facility] PRN Reason: Protocol Last Admin: 10/23/16 11:22 Dose: 40 mg Ergocalciferol (Drisdol 50,000 Intl Units Cap) 1 cap PO Q7D [facility] Folic Acid (Folic Acid) 1 mg PO DAILY [facility] Last Admin: 10/23/16 11:15 Dose: 1 mg Hydromorphone HCl (Dilaudid) 0.5 mg IVP Q4H PRN PRN Reason: Muscle spasm Last Admin: 10/24/16 05:38 Dose: 0.5 mg Levetiracetam (Keppra 500mg Ivpb) 500 mg in 100 mls @ 420 mls/hr IV Q12 [facility] Last Admin: 10/23/16 23:32 Dose: 420 mls/hr Piperacillin Sod/Tazobactam Sod (Zosyn 3.375 In Ns 100ml) 100 mls @ 200 mls/hr IVPB Q6 [facility] PRN Reason: Protocol Stop: 10/30/16 12:01 Last Admin: 10/24/16 05:32 Dose: 200 mls/hr Sodium Bicarbonate 50 meq/ (Sodium Chloride) 1,050 mls @ 200 mls/hr IV .Q5H15M [facility] Last Admin: 10/23/16 09:23 Dose: 200 mls/hr Vancomycin HCl (Vancomycin 1gm) 1 gm in 250 mls @ 167 mls/hr IVPB Q12H [facility] PRN Reason: Protocol Stop: 10/30/16 08:16 Last Admin: 10/23/16 19:37 Dose: 167 mls/hr Sodium Chloride (Sodium Chloride 0.9%) 1,000 mls @ 200 mls/hr IV .Q5H [facility] Last Admin: 10/24/16 05:37 Dose: 200 mls/hr Potassium Chloride (Potassium Chloride 20 Meq/100 Ml) 20 meq in 100 mls @ 50 mls/hr IVPB Q2H [facility] Stop: 10/24/16 11:59 Insulin Detemir (Levemir) 20 unit SC HS [facility] Last Admin: 10/24/16 00:28 Dose: Not Given Insulin Detemir (Levemir) 6 unit SC DAILY [facility] Insulin Human Lispro (Humalog) 6 units SC AC [facility] Last Admin: 10/23/16 18:00 Dose: Not Given Insulin Human Lispro (Humalog Low) 0 units SC ACHS [facility] PRN Reason: Protocol Last Admin: 10/24/16 08:06 Dose: Not Given Lidocaine (Lidoderm) 1 ea TD DAILY [facility] Metoclopramide HCl (Reglan) 10 mg IVP Q6H [facility] Last Admin: 10/24/16 05:30 Dose: 10 mg Nicotine (Nicoderm Cq) 1 patch TD DAILY [facility] Last Admin: 10/24/16 05:32 Dose: 1 patch Ondansetron HCl (Zofran Inj) 4 mg IVP Q4H PRN PRN Reason: Nausea/Vomiting Last Admin: 10/23/16 00:39 Dose: 4 mg Pantoprazole Sodium (Protonix Inj) 40 mg IVP 0600 [facility] Last Admin: 10/24/16 05:28 Dose: 40 mg Thiamine HCl (Vitamin B1 Inj) 100 mg IV DAILY [facility] Last Admin: 10/23/16 11:18 Dose: 100 mg - Labs Labs: 10/24/16 05:30 10/24/16 05:30 PT 10.8 Seconds (9.9-11.8) 10/22/16 15:50 INR 1.00 (0.93-1.08) 10/22/16 15:50 APTT 27.1 Seconds (23.7-30.8) 10/22/16 15:50 - Additional Findings Additional findings: - Constitutional Appears: Non-toxic, No Acute Distress, Resting comfortably in bed - Head Exam Mild contusion along anterior midline of skull, some erythema visible, no gross deformity - Eye Exam Eye Exam: EOMI, Normal appearance. absent: Conjunctival injection, Scleral icterus Pupil Exam: absent: Irregular, Unequal - ENT Exam ENT Exam: Mucous Membranes Moist. absent: Mucous Membranes Dry - Neck Exam Neck Exam: Tenderness (laterally and posteriorly, no anterior tenderness of palpation). absent: Full ROM (restricted 2/2 pain), Lymphadenopathy, Thyromegaly - Respiratory Exam Respiratory Exam: Clear to Ausculation Bilateral, NORMAL BREATHING PATTERN. absent: Accessory Muscle Use, Chest Wall Tenderness, Decreased Breath Sounds, Rales, Rhonchi, Wheezes - Cardiovascular Exam Cardiovascular Exam: REGULAR RHYTHM, RRR, +S1, +S2. absent: Bradycardia, Tachycardia, Irregular Rhythm, JVD, +S4 - GI/Abdominal Exam GI & Abdominal Exam: Soft, Normal Bowel Sounds. absent: Distended, Firm, Rigid , Tenderness, Diminished Bowel Sounds, Hyperactive Bowel Sounds, Hypoactive Bowel Sounds - Extremities Exam Extremities Exam: Normal Capillary Refill, Normal Inspection. absent: Calf Tenderness, Joint Swelling, Pedal Edema, Tenderness - Neurological Exam Neurological Exam: awake and alert, following commands appropriately, spontaneous movement of all extremities, no gross motor deficit - Psychiatric Exam Psychiatric exam: Normal Affect, Normal Mood - Skin Skin Exam: Dry, Intact (some scattered abrasions on bilateral LE at knees, otherwise intact), Normal Color, Warm Assessment and Plan - Assessment and Plan (Free Text) Assessment: This is a 31 yo M with PMH of IDDM who presented [place] [facility] [place]/p syncopal episode with fall and head trauma (witnessed) and was found to be in DKA. Gap has closed again, and he has been transitioned to long-acting and with-meals coverage. Pending MRI, EEG read. Plan: 1) Syncope with head injury - 2/2 DKA vs seizure vs substance abuse - Cardio (Dr. Alvarado) and Neuro (Dr. Mae) consulted, appreciate all recs - ECHO pending - EKG NSR, repeat EKG NSR - Tropes: Negative X 5 - Pending MRI today - CT Cervical Spine, CT head, and CT abd/pelvis all unremarkable - Keppra 500mg IV q12 for seizure ppx 2) DKA - Endo (Dr. Sebastian) consulted, appreciate all recs - Transitioned from Drip to basal insulin, gap remains closed and sugars 80-200 overnight - continue to monitor - Continue BMPs q4 - monitor and replete K as needed; 3.4 today, repleted, f/u recheck 3) Possible Seizure - episode yesterday AM suspicious for seizure, REPLANTING MACHINE OPERATOR called (refer to REPLANTING MACHINE OPERATOR note for details), resolved with Ativan 2mg IV once - Neuro (Dr. Mae) consulted, appreciate all recs - MRI Brain unobtainable at this time as patient cannot lay still (due to neck/ back pain, despite ativan), will attempt again tomorrow - EEG obtained, pending read - Neuro checks 4) Possible Rhabdomyolysis - CK 2094, downtrending on last 2 checks, continue to trend - UA only notable for elevated glucose and ketones - NS D5 1/2NS at 200cc/hr - IV Dilaudid at 0.5mg q4 prn ordered 5) SIRS Criteria - Lactate elevated, HR elevated, RR elevated, WBC elevated on admission - WBCs today improved to 9.8 from 17.9 - No source of infection at current time - leukocytosis may be 2/2 DKA, stress/pain from fall - covering empirically with vanc/zosyn - ID (Dr. Zapata) consulted, appreciate all recs Dispo: ICU, pending EEG read, pending MRI FEN: Consistent carb diet, D5 1/2NS 200cc/hr Access: Peripheral IV Consults: Neuro, Endo, Cardio, ID, ICU Ppx: Protonix for GI, Lovenox for DVT Will discuss with Dr. Eastman <Vikash Eastman - Last Filed: 10/24/16 13:29> Objective - Vital Signs/Intake and Output Vital Signs (last 24 hours): Temp Pulse Resp BP Pulse Ox 98.8 F 78 17 129/73 97 10/24/16 00:00 10/24/16 10:00 10/24/16 07:00 10/24/16 07:00 10/24/16 07:00 Intake and Output: 10/24/16 10/24/16 06:59 18:59 Intake Total 3190 Output Total 600 Balance 2590 - Medications Medications: Current Medications Cyclobenzaprine HCl (Flexeril) 5 mg PO TID PRN PRN Reason: Muscle spasm Last Admin: 10/22/16 21:44 Dose: 5 mg Enoxaparin Sodium (Lovenox) 40 mg SC DAILY [facility] PRN Reason: Protocol Last Admin: 10/24/16 10:15 Dose: 40 mg Ergocalciferol (Drisdol 50,000 Intl Units Cap) 1 cap PO Q7D [facility] Folic Acid (Folic Acid) 1 mg PO DAILY [facility] Last Admin: 10/24/16 10:14 Dose: 1 mg Hydromorphone HCl (Dilaudid) 0.5 mg IVP Q4H PRN PRN Reason: Muscle spasm Last Admin: 10/24/16 05:38 Dose: 0.5 mg Levetiracetam (Keppra 500mg Ivpb) 500 mg in 100 mls @ 420 mls/hr IV Q12 [facility] Last Admin: 10/24/16 10:05 Dose: 420 mls/hr Piperacillin Sod/Tazobactam Sod (Zosyn 3.375 In Ns 100ml) 100 mls @ 200 mls/hr IVPB Q6 [facility] PRN Reason: Protocol Stop: 10/30/16 12:01 Last Admin: 10/24/16 05:32 Dose: 200 mls/hr Sodium Bicarbonate 50 meq/ (Sodium Chloride) 1,050 mls @ 200 mls/hr IV .Q5H15M [facility] Last Admin: 10/23/16 09:23 Dose: 200 mls/hr Sodium Chloride (Sodium Chloride 0.9%) 1,000 mls @ 200 mls/hr IV .Q5H [facility] Last Admin: 10/24/16 05:37 Dose: 200 mls/hr Insulin Detemir (Levemir) 20 unit SC HS [facility] Last Admin: 10/24/16 00:28 Dose: Not Given Insulin Detemir (Levemir) 6 unit SC DAILY [facility] Last Admin: 10/24/16 13:16 Dose: 6 unit Insulin Human Lispro (Humalog) 6 units SC AC [facility] Last Admin: 10/23/16 18:00 Dose: Not Given Insulin Human Lispro (Humalog Low) 0 units SC ACHS [facility] PRN Reason: Protocol Last Admin: 10/24/16 11:30 Dose: Not Given Lidocaine (Lidoderm) 1 ea TD DAILY [facility] Last Admin: 10/24/16 10:15 Dose: 1 ea Metoclopramide HCl (Reglan) 10 mg IVP Q6H [facility] Last Admin: 10/24/16 05:30 Dose: 10 mg Nicotine (Nicoderm Cq) 1 patch TD DAILY [facility] Last Admin: 10/24/16 05:32 Dose: 1 patch Ondansetron HCl (Zofran Inj) 4 mg IVP Q4H PRN PRN Reason: Nausea/Vomiting Last Admin: 10/23/16 00:39 Dose: 4 mg Pantoprazole Sodium (Protonix Inj) 40 mg IVP 0600 [facility] Last Admin: 10/24/16 05:28 Dose: 40 mg Thiamine HCl (Vitamin B1 Inj) 100 mg IV DAILY [facility] Last Admin: 10/24/16 10:17 Dose: 100 mg - Labs Labs: 10/24/16 05:30 10/24/16 05:30 PT 10.8 Seconds (9.9-11.8) 10/22/16 15:50 INR 1.00 (0.93-1.08) 10/22/16 15:50 APTT 27.1 Seconds (23.7-30.8) 10/22/16 15:50 Assessment and Plan - Assessment and Plan (Free Text) Assessment: - Assessment and Plan (Free Text) Assessment: PATIENT SEEN AND EXAMINED IN ICU-1,FATHER AT BEDSIDE A/P: DKA S/P REPLANTING MACHINE OPERATOR SYNCOPE ?SEIZURE POSSIBLE NEW ONSET SEIZURE S/P FALL UNCONTROLLED IDDM WITH HYPERGLYCEMIA RHABDOMYOLYSIS LEUCOCYTOSIS SIRS TACHYPNEA CERVICAL SPINE SPRAIN VS CONTUSION INCREASED AG METABOLIC ACIDOSIS LACTIC ACIDOSIS HYPOPHOSPHETEMIA. SIRS DKA LACTIC ACIDOSIS INCREASED ANION GAP METABOLIC ACIDOSIS MARIJUANA ABUSE BILATERAL CEREBRAL DYSFUNCTION HYPOVITAMINOSIS-D ?/WITHDRAWAL SYNDROME. DILUTIONAL ANEMIA HYPOKALEMIA. PLANS PER ORDERS. PATIENT AND FAMILY EXPLAINED ALL DETAILS CONTINUE IN ICU FOR FURTHER MANAGEMENT. AWAITNG MRI BRAIN/ CERVICAL SPINE
[2016-10-24] MEDS: levETIRAcetam 500mg IVPB 500 MG/100 ML BAG IV SCH ×2 (10:05→21:58)
[2016-10-24] MEDS: Lidocaine 5% Patch TD SCH (10:15)
[2016-10-24] MEDS: Enoxaparin 40 mg Syringe SC SCH (10:15)
[2016-10-24] MEDS: Thiamine 100 mg/ml Inj IV SCH (10:17)
[2016-10-24] MEDS ORDERED: Insulin Detemir 100 units/ml Vial (Levemir) SC SCH (14:16)
--- NOTE | 2016-10-24 16:40 | CARD ---
APPROVED REPORT EKG Measurement Heart [id number] <Conclusion> Normal sinus rhythm Normal ECG
[2016-10-24] MEDS ORDERED: Gadodiamide 287 MG/ML VIAL (15ML) IV ONE (17:49)
--- NOTE | 2016-10-24 17:54 | CP.CCUPN ---
CCU Subjective - Physician Review Events Since Last Encounter (Free Text): 10/24/16 17:50 31 y/o M w/ resolved DKA and questionable seizures. No complaints this morning. mental status improved. CCU Objective - Vital Signs / Intake & Output Vital Signs (Last 4 hours): Vital Signs Pulse 10/24/16 14:00 75 Intake and Output (Last 8hrs): Intake & Output 10/24/16 10/24/16 10/24/16 06:59 14:59 22:59 Intake Total 3190 2600 Output Total 600 1800 Balance 2590 800 Weight 176 lb Intake: IV 2950 2200 Left Forearm 2950 2200 Right Forearm 0 Oral 240 400 Output: Urine 600 1800 Urine, Voided 600 1800 Other: # Bowel Movements 0 - Physical Exam Physical Exam Limitations: Negative for: Altered Mental Status, Clinical Condition, Intoxication, Psychotic, Uncooperative, Other Head: Positive for: Normocephalic, Tenderness (occipital/neck). Negative for: Atraumatic, Contusion, Swelling, Ecchymosis, Abrasion, Laceration, Other Pupils: Positive for: PERRL. Negative for: Sluggish, Non-Reactive, Pinpoint, Other Extroacular Muscles: Positive for: EOMI Conjunctiva: Positive for: Normal Ears: Positive for: Normal Mouth: Positive for: Moist Mucous Membranes Pharnyx: Positive for: Normal Nose (External): Positive for: Atraumatic Neck: Positive for: Normal Range of Motion, MIDLINE TENDERNESS, Paraspinal Tenderness, Trachea Midline Respiratory/Chest: Positive for: Clear to Auscultation, Good Air Exchange Cardiovascular: Positive for: Normal S1, S2, Tachycardic Abdomen: Positive for: Normal Bowel Sounds. Negative for: Tenderness, Distention, Peritoneal Signs, Rebound, Guarding Back: Positive for: Normal Inspection Upper Extremity: Positive for: NORMAL PULSES, Neurovascularly Intact, Capillary Refill < 2s Lower Extremity: Positive for: Normal Inspection, NORMAL PULSES, Neurovascularly Intact, Capillary Refill < 2 s Neurological: Positive for: GCS=15, CN II-XII Intact, Speech Normal, Motor Func Grossly Intact Skin: Positive for: Warm, Dry, Normal Color Lymphatic: Negative for: Cervical Adenopathy, Axillary Adenopathy, Inguinal Adenopathy Psychiatric: Positive for: Alert, Oriented x 3, Anxious - Medications Active Medications: Active Medications Generic Name Dose Route Start Last Admin Trade Name Freq PRN Reason Stop Dose Admin Cyclobenzaprine HCl 5 mg 10/22/16 19:53 10/24/16 16:33 Flexeril PO 5 mg TID PRN Administration Muscle spasm Enoxaparin Sodium 40 mg 10/23/16 10:00 10/24/16 10:15 Lovenox SC 40 mg DAILY [facility] Administration Protocol Ergocalciferol 1 cap 10/23/16 10:00 Drisdol 50,000 Intl Units Cap PO Q7D [facility] Folic Acid 1 mg 10/23/16 06:00 10/24/16 10:14 Folic Acid PO 1 mg DAILY [facility] Administration Hydromorphone HCl 0.5 mg 10/23/16 00:48 10/24/16 05:38 Dilaudid IVP 0.5 mg Q4H PRN Administration Muscle spasm Levetiracetam 500 mg in 100 mls @ 420 mls/hr 10/23/16 10:00 10/24/16 10:05 Keppra 500mg Ivpb IV 420 mls/hr Q12 [facility] Administration Piperacillin Sod/Tazobactam Sod 100 mls @ 200 mls/hr 10/23/16 12:00 10/24/16 13:24 Zosyn 3.375 In Ns 100ml IVPB 10/30/16 12:01 200 mls/hr Q6 [facility] Administration Protocol Sodium Bicarbonate 50 meq/ 1,050 mls @ 200 mls/hr 10/23/16 07:34 10/23/16 09: 23 Sodium Chloride IV 200 mls/hr .Q5H15M [facility] Administration Sodium Chloride 1,000 mls @ 200 mls/hr 10/23/16 11:45 10/24/16 05:37 Sodium Chloride 0.9% IV 200 mls/hr .Q5H [facility] Administration Insulin Detemir 20 unit 10/23/16 22:00 10/24/16 00:28 Levemir SC Not Given HS [facility] Insulin Detemir 6 unit 10/24/16 14:16 10/24/16 13:16 Levemir SC 6 unit DAILY [facility] Administration Insulin Human Lispro 6 units 10/23/16 07:30 10/23/16 18:00 Humalog SC Not Given AC [facility] Insulin Human Lispro 0 units 10/23/16 07:30 10/24/16 16:34 Humalog Low SC 3 units ACHS [facility] Administration Protocol Lidocaine 1 ea 10/23/16 10:00 10/24/16 10:15 Lidoderm TD 1 ea DAILY [facility] Administration Metoclopramide HCl 10 mg 10/23/16 00:30 10/24/16 05:30 Reglan IVP 10 mg Q6H [facility] Administration Nicotine 1 patch 10/24/16 06:00 10/24/16 05:32 Nicoderm Cq TD 1 patch DAILY [facility] Administration Ondansetron HCl 4 mg 10/23/16 00:27 10/23/16 00:39 Zofran Inj IVP 4 mg Q4H PRN Administration Nausea/Vomiting Pantoprazole Sodium 40 mg 10/23/16 06:00 10/24/16 05:28 Protonix Inj IVP 40 mg 0600 [facility] Administration Thiamine HCl 100 mg 10/23/16 06:00 10/24/16 10:17 Vitamin B1 Inj IV 100 mg DAILY [facility] Administration - Patient Studies Lab Studies: Microbiology Studies 10/22/16 23:10 Urine Culture - Final Urine No Growth (<1,000 CFU/ML) 10/23/16 10:00 MRSA Culture (Admit) - Final Nose MRSA NOT DETECTED 10/22/16 20:40 Blood Culture - Preliminary Blood NO GROWTH AFTER 24 HOURS 10/22/16 20:10 Blood Culture - Preliminary Blood NO GROWTH AFTER 24 HOURS Lab Studies 10/24/16 10/24/16 10/24/16 Range/Units 08:40 06:30 06:30 WBC (4.5-11.0) 10^3/ul RBC (3.5-6.1) 10^6/uL Hgb (14.0-18.0) gm/dL Hct (42.0-52.0) % MCV (80.0-105.0) fL MCH (25.0-35.0) pg MCHC (31.0-37.0) g/dl RDW (11.5-14.5) % Plt Count (120.0-450.0) 10^3/uL MPV (7.0-11.0) fl Gran % (50.0-68.0) % Lymph % (Auto) (22.0-35.0) % Mineral % (Auto) (1.0-6.0) % Eos % (Auto) (1.5-5.0) % Baso % (Auto) (0.0-3.0) % Gran # (1.4-6.5) Lymph # (1.2-3.4) Mineral # (0.1-0.6) Eos # (0.0-0.7) Baso # (0.0-2.0) K/mm3 Sodium (132-148) mmol/L Potassium (3.6-5.0) mmol/L Chloride (98-107) mmol/L Carbon Dioxide (21-33) mmol/L Anion Gap (10-20) BUN (7-21) mg/dL Creatinine (0.5-1.4) mg/dL Est GFR ( Amer) Est GFR (Non-Af Amer) Random Glucose (70-110) mg/dL Lactic Acid 0.9 (0.7-2.1) mmol/L Calcium (8.4-10.5) mg/dL Phosphorus (2.5-4.5) mg/dL Magnesium (1.7-2.2) mg/dL Total Bilirubin (0.2-1.3) mg/dL Direct Bilirubin (0.0-0.4) mg/dL AST (15-59) U/L ALT (7-56) U/L Alkaline Phosphatase (38-133) U/L Total Creatine Kinase 2095 H (35-230) U/L CK-MB (CK-2) 4.1 H (0.0-3.6) ng/mL CK-MB (CK-2) % Cancelled Troponin I < 0.01 ng/mL Total Protein (5.8-8.3) g/dL Albumin (3.0-4.8) g/dL Globulin gm/dL Albumin/Globulin Ratio (1.1-1.8) Procalcitonin 0.64 H (0.19-0.49) NG/ML ACTH (6-50) pg/mL HIV 1&2 Ag/Ab, 4th Gen (Nonreactive) 10/24/16 10/24/16 10/23/16 Range/Units 05:30 05:30 07:33 WBC 9.8 D (4.5-11.0) 10^3/ul RBC 3.57 (3.5-6.1) 10^6/uL Hgb 11.2 L (14.0-18.0) gm/dL Hct 33.2 L (42.0-52.0) % MCV 93.0 (80.0-105.0) fL MCH 31.4 (25.0-35.0) pg MCHC 33.7 (31.0-37.0) g/dl RDW 13.3 (11.5-14.5) % Plt Count 154 (120.0-450.0) 10^3/uL MPV 10.5 (7.0-11.0) fl Gran % 70.7 H (50.0-68.0) % Lymph % (Auto) 16.0 L (22.0-35.0) % Mineral % (Auto) 12.9 H (1.0-6.0) % Eos % (Auto) 0.3 L (1.5-5.0) % Baso % (Auto) 0.1 (0.0-3.0) % Gran # 6.91 H (1.4-6.5) Lymph # 1.6 (1.2-3.4) Mineral # 1.3 H (0.1-0.6) Eos # 0.0 (0.0-0.7) Baso # 0.01 (0.0-2.0) K/mm3 Sodium 137 (132-148) mmol/L Potassium 3.4 L (3.6-5.0) mmol/L Chloride 106 (98-107) mmol/L Carbon Dioxide 24 (21-33) mmol/L Anion Gap 10 (10-20) BUN 11 (7-21) mg/dL Creatinine 0.7 (0.5-1.4) mg/dL Est GFR ( Amer) > 60 Est GFR (Non-Af Amer) > 60 Random Glucose 90 (70-110) mg/dL Lactic Acid (0.7-2.1) mmol/L Calcium 8.1 L (8.4-10.5) mg/dL Phosphorus 2.8 (2.5-4.5) mg/dL Magnesium 1.8 (1.7-2.2) mg/dL Total Bilirubin 0.5 (0.2-1.3) mg/dL Direct Bilirubin 0.2 (0.0-0.4) mg/dL AST 85 H (15-59) U/L ALT 42 (7-56) U/L Alkaline Phosphatase 60 (38-133) U/L Total Creatine Kinase (35-230) U/L CK-MB (CK-2) (0.0-3.6) ng/mL CK-MB (CK-2) % Troponin I ng/mL Total Protein 5.7 L (5.8-8.3) g/dL Albumin 3.3 (3.0-4.8) g/dL Globulin 2.5 gm/dL Albumin/Globulin Ratio 1.3 (1.1-1.8) Procalcitonin (0.19-0.49) NG/ML ACTH (6-50) pg/mL HIV 1&2 Ag/Ab, 4th Gen Nonreactive (Nonreactive) 10/23/16 Range/Units 06:00 WBC (4.5-11.0) 10^3/ul RBC (3.5-6.1) 10^6/uL Hgb (14.0-18.0) gm/dL Hct (42.0-52.0) % MCV (80.0-105.0) fL MCH (25.0-35.0) pg MCHC (31.0-37.0) g/dl RDW (11.5-14.5) % Plt Count (120.0-450.0) 10^3/uL MPV (7.0-11.0) fl Gran % (50.0-68.0) % Lymph % (Auto) (22.0-35.0) % Mineral % (Auto) (1.0-6.0) % Eos % (Auto) (1.5-5.0) % Baso % (Auto) (0.0-3.0) % Gran # (1.4-6.5) Lymph # (1.2-3.4) Mineral # (0.1-0.6) Eos # (0.0-0.7) Baso # (0.0-2.0) K/mm3 Sodium (132-148) mmol/L Potassium (3.6-5.0) mmol/L Chloride (98-107) mmol/L Carbon Dioxide (21-33) mmol/L Anion Gap (10-20) BUN (7-21) mg/dL Creatinine (0.5-1.4) mg/dL Est GFR ( Amer) Est GFR (Non-Af Amer) Random Glucose (70-110) mg/dL Lactic Acid (0.7-2.1) mmol/L Calcium (8.4-10.5) mg/dL Phosphorus (2.5-4.5) mg/dL Magnesium (1.7-2.2) mg/dL Total Bilirubin (0.2-1.3) mg/dL Direct Bilirubin (0.0-0.4) mg/dL AST (15-59) U/L ALT (7-56) U/L Alkaline Phosphatase (38-133) U/L Total Creatine Kinase (35-230) U/L CK-MB (CK-2) (0.0-3.6) ng/mL CK-MB (CK-2) % Troponin I ng/mL Total Protein (5.8-8.3) g/dL Albumin (3.0-4.8) g/dL Globulin gm/dL Albumin/Globulin Ratio (1.1-1.8) Procalcitonin (0.19-0.49) NG/ML ACTH 122 H (6-50) pg/mL HIV 1&2 Ag/Ab, 4th Gen (Nonreactive) Laboratory Results - last 24 hr 10/23/16 10/23/16 10/24/16 06:00 07:33 05:30 WBC RBC Hgb Hct MCV MCH MCHC RDW Plt Count MPV Gran % Lymph % (Auto) Mineral % (Auto) Eos % (Auto) Baso % (Auto) Gran # Lymph # Mineral # Eos # Baso # Sodium 137 Potassium 3.4 L Chloride 106 Carbon Dioxide 24 Anion Gap 10 BUN 11 Creatinine 0.7 Est GFR ( Amer) > 60 Est GFR (Non-Af Amer) > 60 Random Glucose 90 Lactic Acid Calcium 8.1 L Phosphorus 2.8 Magnesium 1.8 Total Bilirubin 0.5 Direct Bilirubin 0.2 AST 85 H ALT 42 Alkaline Phosphatase 60 Total Creatine Kinase CK-MB (CK-2) CK-MB (CK-2) % Troponin I Total Protein 5.7 L Albumin 3.3 Globulin 2.5 Albumin/Globulin Ratio 1.3 Procalcitonin ACTH 122 H HIV 1&2 Ag/Ab, 4th Gen Nonreactive 10/24/16 10/24/16 10/24/16 05:30 06:30 06:30 WBC 9.8 D RBC 3.57 Hgb 11.2 L Hct 33.2 L MCV 93.0 MCH 31.4 MCHC 33.7 RDW 13.3 Plt Count 154 MPV 10.5 Gran % 70.7 H Lymph % (Auto) 16.0 L Mineral % (Auto) 12.9 H Eos % (Auto) 0.3 L Baso % (Auto) 0.1 Gran # 6.91 H Lymph # 1.6 Mineral # 1.3 H Eos # 0.0 Baso # 0.01 Sodium Potassium Chloride Carbon Dioxide Anion Gap BUN Creatinine Est GFR ( Amer) Est GFR (Non-Af Amer) Random Glucose Lactic Acid Calcium Phosphorus Magnesium Total Bilirubin Direct Bilirubin AST ALT Alkaline Phosphatase Total Creatine Kinase 2095 H CK-MB (CK-2) 4.1 H CK-MB (CK-2) % Cancelled Troponin I < 0.01 Total Protein Albumin Globulin Albumin/Globulin Ratio Procalcitonin 0.64 H ACTH HIV 1&2 Ag/Ab, 4th Gen 10/24/16 08:40 WBC RBC Hgb Hct MCV MCH MCHC RDW Plt Count MPV Gran % Lymph % (Auto) Mineral % (Auto) Eos % (Auto) Baso % (Auto) Gran # Lymph # Mineral # Eos # Baso # Sodium Potassium Chloride Carbon Dioxide Anion Gap BUN Creatinine Est GFR ( Amer) Est GFR (Non-Af Amer) Random Glucose Lactic Acid 0.9 Calcium Phosphorus Magnesium Total Bilirubin Direct Bilirubin AST ALT Alkaline Phosphatase Total Creatine Kinase CK-MB (CK-2) CK-MB (CK-2) % Troponin I Total Protein Albumin Globulin Albumin/Globulin Ratio Procalcitonin ACTH HIV 1&2 Ag/Ab, 4th Gen EKG/Cardiology Studies: Cardiology / EKG Studies 10/24/16 07:00 EKG [ELECTROCARDIOGRAM] DAILY Comment: Reason For Exam: SYHNCOPE 10/25/16 07:00 EKG [ELECTROCARDIOGRAM] DAILY Comment: Reason For Exam: SYHNCOPE 10/26/16 07:00 EKG [ELECTROCARDIOGRAM] DAILY Comment: Reason For Exam: SYHNCOPE Fingerstick Blood Sugar Results: 300 Review of Systems - EENT Eyes: UNREMARKABLE Ears: UNREMARKABLE Nose/Mouth/Throat: UNREMARKABLE - Cardiovascular Cardiovascular: UNREMARKABLE - Respiratory Respiratory: UNREMARKABLE - Gastrointestinal Gastrointestinal: UNREMARKABLE - Genitourinary Genitourinary: UNREMARKABLE - Reproductive: Male Reproductive:Male: UNREMARKABLE - Integumentary Integumentary: UNREMARKABLE - Neurological Neurological: UNREMARKABLE Critical Care Progress Note - Ventilator Checklist PUD Prophalyxis: Yes DVT Prophylaxis: Yes - Nutrition Nutrition: Nutrition Category Date Time Status Consistent Carbohydrate [DIET] Diets 10/22/16 Dinner Ordered Assessment/Plan - Assessment and Plan (Free Text) Assessment: 31 y/o M w/ DM Resolved DKA Insulin drip turned off , Insuling regimen altered by Endocrine. Pt has been a diabetic for 20 years. Keep BS 140-160. Diet restarted. Unclear seizure at home. Cause unclear, possibly from UDS? Unclear if there was a true neurological cause of metabolic reasons. Neurology team consulted. Seizure P started per Neurology . No further seizures noted. Electrolytes WNL. No new neurological sequlae. Neuro exam preserved. Mild cervical neck tenderness. CT negative for any fx. dvt p cc time 55 min
--- NOTE | 2016-10-24 18:37 | CARD ---
APPROVED REPORT EXAM: Two-dimensional and M-mode echocardiogram with Doppler and color Doppler. INDICATION Syncope 2D DIMENSIONS Left Atrium (2D)4.0 (1.6-4.0cm)IVSd1.0 (0.7-1.1cm) LVDd4.5 (3.9-5.9cm)PWd1.2 (0.7-1.1cm) LVDs3.2 (2.5-4.0cm)FS (%) 28.7 % LVEF (%)55.3 (>50%) M-Mode DIMENSIONS Aortic Root2.70 (2.2-3.7cm)Aortic Cusp Exc.1.60 (1.5-2.0cm) Aortic Valve AoV Peak Jpzkpgkj702.0cm/Keysha Peak GR.13mmHg Mitral Valve MV E Vshvpiup711.0cm/sMV A Phdtdfsl71.5cm/sE/A ratio1.3 TDI E/Lateral E'0.0E/Medial E'0.0 Tricuspid Valve TR Peak [id number]/sRAP [id number] Peak Gr.22mmHg [id number] LEFT VENTRICLE The left ventricle is normal size. There is normal left ventricular wall thickness. The left ventricular function is normal.EF-55% There is normal LV segmental wall motion. The left ventricular diastolic function is normal. No left ventricle thrombus noted on this study. There is no ventricular septal defect visualized. There is no left ventricular aneurysm. There is no mass noted in the left ventricle. RIGHT VENTRICLE The right ventricle is normal size. There is normal right ventricular wall thickness. The right ventricular systolic function is normal. ATRIA The left atrium is borderline dilated. The right atrium size is normal. The interatrial septum is intact with no evidence for an atrial septal defect. AORTIC VALVE The aortic valve is normal in structure. No aortic regurgitation is present. There is no aortic valvular stenosis. There is no aortic valvular vegetation. MITRAL VALVE The mitral valve is thickened but opens well. There is no mitral valve regurgitation noted. There is no mitral valve stenosis. There is no evidence of mitral valve prolapse. TRICUSPID VALVE The tricuspid valve is normal in structure. There is trace tricuspid regurgitation.RVSP-32 mmof Hg There is no tricuspid valve stenosis. There is no tricuspid valve prolapse or vegetation. PULMONIC VALVE The pulmonary valve is normal in structure. There is no pulmonic valvular regurgitation. GREAT VESSELS The aortic root is normal in size. The ascending aorta is normal in size. The pulmonary artery is normal. The IVC is dilated. PERICARDIAL EFFUSION There is no pleural effusion. There is no pericardial effusion. <Conclusion> The left ventricle is normal size. There is normal left ventricular wall thickness. The left ventricular function is normal.EF-55% No aortic regurgitation is present. There is no mitral valve regurgitation noted. There is trace tricuspid regurgitation.RVSP-32 mmof Hg The IVC is dilated. No vegetation or thrombus noted.
--- NOTE | 2016-10-24 19:02 | MRI ---
PROCEDURE: MRI BRAIN WITH AND WITHOUT CONTRAST HISTORY: dka/ fell hit head COMPARISON: Comparison made with prior CT scan brain dated 10/22/2016 TECHNIQUE: Multiplanar, multisequence MR images of the brain were obtained with and without intravenous contrast enhancement. FINDINGS: HEMORRHAGE: No acute parenchymal, subarachnoid or extra-axial DWI: No evidence of an acute or early subacute infarction. BRAIN PARENCHYMA: No mass,mass effect or edema. No atrophy or chronic microvascular ischemic changes. ENHANCEMENT: No abnormal intracranial enhancement. VENTRICLES: Unremarkable. No hydrocephalus. CRANIUM: Unremarkable. ORBITS: Orbits and contents grossly unremarkable. PARANASAL SINUSES/MASTOIDS: Mild mucosal thickening seen in the ethmoid and frontal sinuses. VASCULAR SYSTEM: Skull base flow voids intact. OTHER FINDINGS: Note made of focal areas of prolonged T2 signal in the region of the right petrous bone which corresponds to lucencies within the calvarium at this location on CT scan. 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 No enhancing lesions seen. . Questionable right-sided PE trace cholesteatoma
--- NOTE | 2016-10-24 19:16 | MRI ---
PROCEDURE: MRI of the cervical spine dated 10/24/2016 HISTORY: Syncope. COMPARISON: No prior study available for comparison TECHNIQUE: Multiecho- multiplanar sequences were performed through the cervical spine without the use of intravenous contrast. FINDINGS: The current study reveals prolonged T2 signal within the superior T3 and anterior superior corner of T4 segment. . There is very slight stature loss of the anterior superior endplate of the T4 segment and to a lesser degree at mild concave appearance of the superior T3 endplate. These findings may represent posttraumatic edema/microtrabecular injury. Recommend followup MRI in 3- 4 weeks to assess for any stature loss. No significant retropulsion of fragments noted at this time. . There is mild broad-based disc bulge ridge complex is noted at the T4-T5 and T3-T4 levels. The remaining vertebral bodies otherwise exhibit normal signal and stature. No evidence of acute or chronic compression fractures. There is straightening of the normal cervical lordosis due to patient positioning in the gantry however underlying element of muscle spasm may contribute. . Vertebral bodies otherwise exhibit normal alignment. At the C6-C7 level, there is mild disc desiccation and small broad-based disc bulge ridge complex that indents the ventral surface of the thecal sac though does not cause any significant cord compression. Minor broad-based disc bulge noted at the C5-C6 level which also results in mild flattening of the ventral surface of the thecal sac and what appears represent minimal indentation of the ventral surface of the cord. . No definitive intrinsic signal changes seen within the visualized spinal cord. Cervicomedullary junction unremarkable. Impression: There is mild edema within the superior aspect of the T4 and to a lesser degree anterior superior corner of the T3 segments at may represent mild microtrabecular injury with slight deformity and stature loss of the anterior superior endplate T4 and minimal concave appearance of the superior endplate of T3. Recommend follow-up MRI in 3 in 6 weeks to assess for a further stature loss and retropulsion of fragments. Note that these findings were discussed with 5 Jose Medrano at approximately 7:03 p.m. with written down and read back verification
[2016-10-24] MEDS: Insulin Detemir 100 units/ml Vial (Levemir) SC SCH (21:59)
[2016-10-25] MEDS: Piperacillin/Tazobact 3.375 gm 100 ML IVPB SCH ×2 (00:13→07:19)
[2016-10-25] MEDS: Sodium Chloride 0.9% 1,000 ML IV SCH ×4 (02:07→17:48)
[2016-10-25 07:06] LABS: BASO # 0.01 K/mm3 (0.0-2.0); BASO % 0.1 % (0.0-3.0); EOS # 0.1 (0.0-0.7); EOS % 0.6 % (1.5-5.0); GRAN # 5.84 (1.4-6.5); GRAN % 71.8 % (50.0-68.0); HEMOGLOBIN 12.7 gm/dL (14.0-18.0); LYMPH # 1.2 (1.2-3.4); LYMPH % 14.6 % (22.0-35.0); MEAN CELL VOLUME 92.2 fL (80.0-105.0); MEAN CORPUSCULAR HEMOGLOBIN 31.1 pg (25.0-35.0); MEAN CORPUSCULAR HGB CONC 33.8 g/dl (31.0-37.0); MEAN PLATELET VOLUME 10.2 fl (7.0-11.0); MONO # 1.1 (0.1-0.6); MONO % 12.9 % (1.0-6.0); PLATELET COUNT 168 10^3/uL (120.0-450.0); RBC 4.08 10^6/uL (3.5-6.1); RED CELL DISTRIBUTION WIDTH 12.8 % (11.5-14.5); WHITE BLOOD COUNT 8.1 10^3/ul (4.5-11.0)
[2016-10-25 07:16] LABS: ALB/GLOB RATIO 1.4 (1.1-1.8); ALBUMIN 4.1 g/dL (3.0-4.8); ALT/SGPT 53 U/L (7-56); AST/SGOT 101 U/L (15-59); BILIRUBIN,DIRECT 0.4 mg/dL (0.0-0.4); BLOOD UREA NITROGEN 7 mg/dL (7-21); CALCIUM 8.7 mg/dL (8.4-10.5); GFR AFRICAN-AMERICAN > 60; GFR NON-AFRICAN AMERICAN > 60; MAGNESIUM 1.7 mg/dL (1.7-2.2)
[2016-10-25 07:29] LABS: TROPONIN I < 0.01 ng/mL
[2016-10-25] MEDS: Insulin Lispro 1 UNITS/0.01 ML SC SCH ×4 (07:30→17:46)
[2016-10-25] MEDS: Insulin Lispro (humaLOG) LOW Coverage SC SCH ×4 (07:49→21:37)
--- NOTE | 2016-10-25 07:49 | CP.PCM.PN ---
Subjective - Date & Time of Evaluation Date of Evaluation: 10/25/16 Time of Evaluation: 07:00 - Subjective Subjective: Internal Medicine Progress Note Patient seen and examined at bedside. Patient resting comfortably in bedside chair. No acute events overnight. Offers no new complaints at this time. States neck and upper back stiffness have improved since yesterday though he still experiences mild discomfort with sudden movements of the head and neck. Patient denies fever, chills, chest pain, SOB, abdominal pain, N/V, diarrhea, constipation, and urinary symptoms. Objective - Vital Signs/Intake and Output Vital Signs (last 24 hours): Temp Pulse Resp BP Pulse Ox 98 F 95 H 20 127/75 99 10/25/16 07:32 10/25/16 07:32 10/25/16 07:32 10/25/16 07:32 10/25/16 07:32 Intake and Output: 10/25/16 10/25/16 06:59 18:59 Intake Total 780 Output Total 300 Balance 480 - Medications Medications: Current Medications Cyclobenzaprine HCl (Flexeril) 5 mg PO TID PRN PRN Reason: Muscle spasm Last Admin: 10/25/16 00:23 Dose: 5 mg Enoxaparin Sodium (Lovenox) 40 mg SC DAILY DIMITRI PRN Reason: Protocol Last Admin: 10/24/16 10:15 Dose: 40 mg Ergocalciferol (Drisdol 50,000 Intl Units Cap) 1 cap PO Q7D DIMITRI Folic Acid (Folic Acid) 1 mg PO DAILY [facility] Last Admin: 10/24/16 10:14 Dose: 1 mg Hydromorphone HCl (Dilaudid) 0.5 mg IVP Q4H PRN PRN Reason: Muscle spasm Last Admin: 10/24/16 05:38 Dose: 0.5 mg Levetiracetam (Keppra 500mg Ivpb) 500 mg in 100 mls @ 420 mls/hr IV Q12 DIMITRI Last Admin: 10/24/16 21:58 Dose: 420 mls/hr Piperacillin Sod/Tazobactam Sod (Zosyn 3.375 In Ns 100ml) 100 mls @ 200 mls/hr IVPB Q6 DIMITRI PRN Reason: Protocol Stop: 10/30/16 12:01 Last Admin: 10/25/16 07:19 Dose: 200 mls/hr Sodium Bicarbonate 50 meq/ (Sodium Chloride) 1,050 mls @ 200 mls/hr IV .Q5H15M [facility] Last Admin: 10/23/16 09:23 Dose: 200 mls/hr Sodium Chloride (Sodium Chloride 0.9%) 1,000 mls @ 200 mls/hr IV .Q5H [facility] Last Admin: 10/25/16 02:07 Dose: 200 mls/hr Insulin Detemir (Levemir) 24 unit SC HS [facility] Last Admin: 10/24/16 21:59 Dose: 24 unit Insulin Human Lispro (Humalog Low) 0 units SC ACHS DIMITRI PRN Reason: Protocol Last Admin: 10/24/16 21:58 Dose: 2 units Insulin Human Lispro (Humalog) 12 units SC AC DIMITRI Lidocaine (Lidoderm) 1 ea TD DAILY [facility] Last Admin: 10/24/16 10:15 Dose: 1 ea Metoclopramide HCl (Reglan) 10 mg IVP Q6H [facility] Last Admin: 10/25/16 07:20 Dose: 10 mg Nicotine (Nicoderm Cq) 1 patch TD DAILY [facility] Last Admin: 10/24/16 05:32 Dose: 1 patch Ondansetron HCl (Zofran Inj) 4 mg IVP Q4H PRN PRN Reason: Nausea/Vomiting Last Admin: 10/23/16 00:39 Dose: 4 mg Pantoprazole Sodium (Protonix Inj) 40 mg IVP 0600 [facility] Last Admin: 10/25/16 07:20 Dose: 40 mg Thiamine HCl (Vitamin B1 Inj) 100 mg IV DAILY [facility] Last Admin: 10/24/16 10:17 Dose: 100 mg - Labs Labs: 10/25/16 06:30 10/25/16 06:30 PT 10.8 Seconds (9.9-11.8) 10/22/16 15:50 INR 1.00 (0.93-1.08) 10/22/16 15:50 APTT 27.1 Seconds (23.7-30.8) 10/22/16 15:50 - Additional Findings Additional findings: - Constitutional Appears: Non-toxic, No Acute Distress, Resting comfortably in bed - Head Exam Mild healing contusion along anterior midline of skull, some erythema visible, no gross deformity - Eye Exam Eye Exam: EOMI, Normal appearance. absent: Conjunctival injection, Scleral icterus Pupil Exam: absent: Irregular, Unequal - ENT Exam ENT Exam: Mucous Membranes Moist. absent: Mucous Membranes Dry - Neck Exam Neck Exam: Tenderness (laterally and posteriorly, no anterior tenderness of palpation). absent: Full ROM (restricted 2/2 pain), Lymphadenopathy, Thyromegaly - Respiratory Exam Respiratory Exam: Clear to Ausculation Bilateral, NORMAL BREATHING PATTERN. absent: Accessory Muscle Use, Chest Wall Tenderness, Decreased Breath Sounds, Rales, Rhonchi, Wheezes - Cardiovascular Exam Cardiovascular Exam: REGULAR RHYTHM, RRR, +S1, +S2. absent: Bradycardia, Tachycardia, Irregular Rhythm, JVD, +S4 - GI/Abdominal Exam GI & Abdominal Exam: Soft, Normal Bowel Sounds. absent: Distended, Firm, Rigid , Tenderness, Diminished Bowel Sounds, Hyperactive Bowel Sounds, Hypoactive Bowel Sounds - Extremities Exam Extremities Exam: Normal Capillary Refill, Normal Inspection. absent: Calf Tenderness, Joint Swelling, Pedal Edema, Tenderness - Neurological Exam Neurological Exam: awake and alert, following commands appropriately, spontaneous movement of all extremities, no gross motor deficit - Psychiatric Exam Psychiatric exam: Normal Affect, Normal Mood - Skin Skin Exam: Dry, Intact (some scattered abrasions on bilateral LE at knees, otherwise intact), Normal Color, Warm Assessment and Plan - Assessment and Plan (Free Text) Assessment: Patient is a 31 yo M with PMH of IDDM who was admitted to [facility] for evaluation and treatment of a syncopal episode, head trauma, and DKA. Plan: 1) Syncope with head injury - 2/2 DKA vs seizure vs substance abuse - Cardio (Dr. Alvarado) and Neuro (Dr. Mae) consulted, appreciate all recs - ECHO reviewed- EF 55% - EKG NSR, repeat EKG NSR - Tropes: Negative X 5 - MRI reviewed-No acute intracranial hemorrhage or infarct. No enhancing lesions seen. - Brain MRI reviewed- follow-up MRI in 3 in 6 weeks to assess for a further stature loss and retropulsion of fragments - CT Cervical Spine, CT head, and CT abd/pelvis all unremarkable - Keppra 500mg IV q12 for seizure ppx 2) DKA - Endo (Dr. Sebastian) consulted, appreciate all recs - gap remains closed and sugars 80-200 overnight - continue to monitor - Continue BMPs q4 - potassium 3.2L this AM, replete and monitor closely - BG low 48 this AM, check again after meal, endo is on board- appreciate adjustment to insulin regiment 3) Possible Seizure - Neuro (Dr. Mae) consulted, appreciate all recs - EEG obtained, pending read - Neuro checks 4) Possible Rhabdomyolysis - CK 4388, increased from 2094 - repeat CK stat to confirm new increased value - NS at 200cc/hr - IV Dilaudid at 0.5mg q4 prn ordered 5) SIRS Criteria- resolved - Lactate elevated, HR elevated, RR elevated, WBC elevated on admission - WBCs today improved to 9.8 from 17.9 - No source of infection at current time - leukocytosis may be 2/2 DKA, stress/pain from fall - covering empirically with zosyn - ID (Dr. Zapata) consulted, appreciate all recs Will discuss with Dr. Eastman
[2016-10-25] MEDS ORDERED: Potassium Chloride 40 mEq/30 ml LIQ UD PO ONE (09:02)
[2016-10-25 09:08] LABS: CK-MB 1.9 ng/mL (0.0-3.6)
--- NOTE | 2016-10-25 10:47 | CARD ---
APPROVED REPORT EKG Measurement Heart [id number] <Conclusion> Normal sinus rhythm Normal ECG
[2016-10-25] MEDS: Lidocaine 5% Patch TD SCH ×2 (11:14→11:15)
[2016-10-25] MEDS: Enoxaparin 40 mg Syringe SC SCH (11:15)
[2016-10-25] MEDS: Thiamine 100 mg/ml Inj IV SCH (11:16)
[2016-10-25] MEDS: Insulin Detemir 100 units/ml Vial (Levemir) SC SCH (21:42)
[2016-10-26] MEDS: Sodium Chloride 0.9% 1,000 ML IV SCH ×2 (04:58→10:16)
[2016-10-26] MEDS: Pantoprazole 40 mg EC Tab PO SCH (05:39)
[2016-10-26 06:43] LABS: BASO # 0.01 K/mm3 (0.0-2.0); BASO % 0.2 % (0.0-3.0); EOS # 0.1 (0.0-0.7); GRAN # 4.07 (1.4-6.5); GRAN % 66.3 % (50.0-68.0); HEMOGLOBIN 12.9 gm/dL (14.0-18.0); LYMPH # 1.1 (1.2-3.4); LYMPH % 18.2 % (22.0-35.0); MEAN CELL VOLUME 92.3 fL (80.0-105.0); MEAN CORPUSCULAR HEMOGLOBIN 32.2 pg (25.0-35.0); MEAN CORPUSCULAR HGB CONC 34.9 g/dl (31.0-37.0); MEAN PLATELET VOLUME 10.2 fl (7.0-11.0); MONO # 0.9 (0.1-0.6); MONO % 14.3 % (1.0-6.0); PLATELET COUNT 160 10^3/uL (120.0-450.0); RBC 4.01 10^6/uL (3.5-6.1); RED CELL DISTRIBUTION WIDTH 12.6 % (11.5-14.5); WHITE BLOOD COUNT 6.1 10^3/ul (4.5-11.0)
[2016-10-26 06:49] LABS: ALB/GLOB RATIO 1.3 (1.1-1.8); ALBUMIN 3.9 g/dL (3.0-4.8); ALT/SGPT 65 U/L (7-56); AST/SGOT 155 U/L (15-59); BILIRUBIN,DIRECT 0.2 mg/dL (0.0-0.4); BLOOD UREA NITROGEN 7 mg/dL (7-21); GFR AFRICAN-AMERICAN > 60; GFR NON-AFRICAN AMERICAN > 60; MAGNESIUM 1.7 mg/dL (1.7-2.2)
[2016-10-26 07:12] LABS: TROPONIN I < 0.01 ng/mL
[2016-10-26 07:49] LABS: CK-MB 1.6 ng/mL (0.0-3.6)
--- NOTE | 2016-10-26 08:04 | CP.PCM.PN ---
Subjective - Date & Time of Evaluation Date of Evaluation: 10/26/16 Time of Evaluation: 07:20 - Subjective Subjective: (covering for Dr. Eastman) Patient is seen this morning. He is feeling better. According to the nurse, his blood sugar is 48 this morning. Objective - Vital Signs/Intake and Output Vital Signs (last 24 hours): Temp Pulse Resp BP Pulse Ox 98.0 F 59 L 20 135/80 99 10/25/16 17:08 10/25/16 17:08 10/25/16 17:08 10/25/16 17:08 10/25/16 17:08 Intake and Output: 10/26/16 10/26/16 06:59 18:59 Intake Total 1380 Balance 1380 - Medications Medications: Current Medications Cyclobenzaprine HCl (Flexeril) 5 mg PO TID PRN PRN Reason: Muscle spasm Last Admin: 10/25/16 21:42 Dose: 5 mg Enoxaparin Sodium (Lovenox) 40 mg SC DAILY DIMITRI PRN Reason: Protocol Last Admin: 10/25/16 11:15 Dose: 40 mg Ergocalciferol (Drisdol 50,000 Intl Units Cap) 1 cap PO Q7D DIMITRI Folic Acid (Folic Acid) 1 mg PO DAILY [facility] Last Admin: 10/25/16 11:14 Dose: 1 mg Hydromorphone HCl (Dilaudid) 0.5 mg IVP Q4H PRN PRN Reason: Muscle spasm Last Admin: 10/24/16 05:38 Dose: 0.5 mg Sodium Chloride (Sodium Chloride 0.9%) 1,000 mls @ 200 mls/hr IV .Q5H [facility] Last Admin: 10/26/16 04:58 Dose: 200 mls/hr Insulin Detemir (Levemir) 24 unit SC HS [facility] Last Admin: 10/25/16 21:42 Dose: 24 unit Insulin Human Lispro (Humalog Low) 0 units SC ACHS DIMITRI PRN Reason: Protocol Last Admin: 10/25/16 21:37 Dose: Not Given Insulin Human Lispro (Humalog) 12 units SC AC [facility] Last Admin: 10/25/16 17:46 Dose: 12 units Levetiracetam (Keppra) 500 mg PO BID [facility] Last Admin: 10/25/16 17:47 Dose: 500 mg Lidocaine (Lidoderm) 1 ea TD DAILY [facility] Last Admin: 10/25/16 11:15 Dose: 1 ea Metoclopramide HCl (Reglan) 10 mg IVP Q6H [facility] Last Admin: 10/26/16 05:39 Dose: 10 mg Nicotine (Nicoderm Cq) 1 patch TD DAILY [facility] Last Admin: 10/25/16 11:15 Dose: 1 patch Ondansetron HCl (Zofran Inj) 4 mg IVP Q4H PRN PRN Reason: Nausea/Vomiting Last Admin: 10/23/16 00:39 Dose: 4 mg Pantoprazole Sodium (Protonix Ec Tab) 40 mg PO 0600 [facility] Last Admin: 10/26/16 05:39 Dose: 40 mg Thiamine HCl (Vitamin B1 Inj) 100 mg IV DAILY [facility] Last Admin: 10/25/16 11:16 Dose: 100 mg - Labs Labs: 10/26/16 06:15 10/26/16 06:15 PT 10.8 Seconds (9.9-11.8) 10/22/16 15:50 INR 1.00 (0.93-1.08) 10/22/16 15:50 APTT 27.1 Seconds (23.7-30.8) 10/22/16 15:50 - Constitutional Appears: No Acute Distress - Head Exam Head Exam: ATRAUMATIC, NORMOCEPHALIC - Respiratory Exam Respiratory Exam: Clear to Ausculation Bilateral, NORMAL BREATHING PATTERN - Cardiovascular Exam Cardiovascular Exam: +S1, +S2 - GI/Abdominal Exam GI & Abdominal Exam: Soft, Normal Bowel Sounds. absent: Tenderness - Neurological Exam Neurological Exam: Alert, Awake, Oriented x3 Assessment and Plan - Assessment and Plan (Free Text) Assessment: Diabetic ketoacidosis Diabetes Type I with hypoglycemia Rhabdomyolysis Elevated liver enzymes s/p fall r/o syncope neck pain Plan: Patient is seen this morning. He has no specific complaints. His blood sugar is low. Will decrease night time insulin. CPK is rising - 10,000 this morning; continue IV hydration. AST and ALT are also rising; we will order ultrasound of the abdomen replace potassium patient with workup for possible syncope; neurology and cardiology workup
--- NOTE | 2016-10-26 09:24 | PN ---
DATE: 10/25/2016 SUBJECTIVE: The patient is in bed, in no acute distress, nontoxic. PHYSICAL EXAMINATION VITAL SIGNS: Temperature is 98, blood pressure is 127/70, respiratory rate of 20. HEENT: Unremarkable. NECK: Supple. LUNGS: Decreased breath sounds. HEART: Normal S1, S2. ABDOMEN: Soft and nontender. LABORATORY DATA: Reveals a white count of 8.1, hemoglobin of 12, platelets of 168. Chemistries reveal a BUN of 7, creatinine of 0.7. Procalcitonin in noted and microbiology reveals blood cultures, no growth at 48 hours. Urine cultures, no growth. A nasal MRSA screen is negative. Review of orders reveals the patient to be on Zosyn. Patient had an MRI of the brain, which has no acute changes and MRI of the cervical spine which is noted and the patient had a CAT scan of the abdomen on the 10/22/2016. ASSESSMENT AND PLAN: A 31- year-old male with systemic inflammatory response syndrome in a patient with hyperglycemia, diabetes, poorly compliant hypothyroidism, status post fall with trauma to the head with a negative MRI, negative cultures. We will discontinue the Zosyn and no further antibiotics at this point. No evidence of infection at this point. All cultures are negative. Moustapha Zapata MD
[2016-10-26] MEDS: Lidocaine 5% Patch TD SCH (10:13)
[2016-10-26] MEDS: Insulin Lispro 1 UNITS/0.01 ML SC SCH ×3 (10:14→17:24)
[2016-10-26] MEDS: Enoxaparin 40 mg Syringe SC SCH (10:14)
[2016-10-26] MEDS: Insulin Lispro (humaLOG) LOW Coverage SC SCH ×4 (10:14→21:44)
[2016-10-26] MEDS: Thiamine 100 mg/ml Inj IV SCH (10:15)
[2016-10-26] MEDS ORDERED: Potassium Chloride 40 mEq/30 ml LIQ UD PO ONE (10:53)
--- NOTE | 2016-10-26 11:01 | PN ---
ROOM: 560. SUBJECTIVE: This is a 31-year-old male with recent uncontrolled type-1 insulin dependent diabetes presenting here with an apparent syncopal event and possible seizure disorder and currently undergoing neurological workup at this time and is also being followed closely for metabolic management. His oral intake is quite valuable at this time. As noted he initially presented with diabetic ketoacidosis and received intensive insulin therapy and vigorous IV hydration in the intensive care unit and since then been transferred out to the regular floor as noted yesterday. His glycemic values today have ranged from 48 early this morning to 311 yesterday and 261 at lunch time also yesterday as noted. His latest chemistry shows BUN of 7, sodium of 140, potassium 3.2, chloride 102, CO2 of 27, glucose 48 and creatinine 0.7. His creatinine kinase is still elevated from the recent fall at home and the latest value is 5355 with a CK-MB of 2.0, so at this time, will continue the modified basal and bolus insulin regimen to allow for dose equilibration as his oral intake is also quite variable as per the nursing staff. We will continue with Humalog given as 12 units SubQ t.i.d. before meals as ordered. Will also continue the Levemir given as 24 units SubQ at bedtime daily as given. We will continue the low dose of correction scale using Humalog insulin as ordered. Will follow and advise the *------*. Marta Sebastian MD
--- NOTE | 2016-10-26 15:36 | US ---
HISTORY: abnormal LFTs COMPARISON: Comparison is made to the previous study dated 10/22/2016 TECHNIQUE: Sonographic evaluation of the abdomen. FINDINGS: LIVER: Measures 16.1 cm. Normal echogenicity of the liver parenchyma. No mass. No intrahepatic bile duct dilatation. GALLBLADDER: There are small echogenic foci in the gallbladder may represent adenomyomatosis versus less likely small polyps. COMMON BILE DUCT: Measures 3.6 mm. No stones. No dilatation. PANCREAS: Unremarkable as visualized. No mass. No ductal dilatation. RIGHT KIDNEY: Measures 11.1 x 4.6 x 5.4cm. Normal echogenicity. No calculus, mass, or hydronephrosis. LEFT KIDNEY: Measures 12.2 x 5.7 x 5.2cm. Normal echogenicity. No calculus, mass, or hydronephrosis. SPLEEN: Normal in size and contour. No mass. AORTA: No aneurysmal dilatation. IVC: Unremarkable. OTHER FINDINGS: None. IMPRESSION: Small echogenic foci in the gallbladder likely represent adenomyomatosis versus less likely small polyps. No evidence of cholecystitis. Otherwise grossly unremarkable ultrasound examination of the abdomen.
--- NOTE | 2016-10-26 17:28 | CP.PCM.CON ---
History of Present Illness - History of Present Illness History of Present Illness: Patient is a 31 year old male who presents for a cardiology consultation with a syncopal episode which was thought to be seizure related. This would be a new onset. The patient has a history of juvenile diabetes and has been taking insulin. He has been noncompliant with his medications for various reasons. This is likely to be a cause of his DKA. Review of Systems - Review of Systems All systems: reviewed and no additional remarkable complaints except - Constitutional Constitutional: absent: Fever - Cardiovascular Cardiovascular: absent: Chest Pain Past Patient History - Infectious Disease Hx of Infectious Diseases: None - Past Social History Smoking Status: Light Smoker < 10 Cigarettes Daily Occupation: Works by [employer] in [place] [employer] - ENDOCRINE/METABOLIC Hx Diabetes Mellitus Type 1: Yes - MUSCULOSKELETAL/RHEUMATOLOGICAL Hx Falls: No - PSYCHIATRIC Hx Substance Use: No Meds Allergies/Adverse Reactions: Allergies Allergy/AdvReac Type Severity Reaction Status Date / Time No Known Allergies Allergy Verified 10/22/16 16:00 - Medications Medications: Current Medications Enoxaparin Sodium (Lovenox) 40 mg SC DAILY [facility] PRN Reason: Protocol Last Admin: 10/26/16 10:14 Dose: 40 mg Ergocalciferol (Drisdol 50,000 Intl Units Cap) 1 cap PO Q7D [facility] Folic Acid (Folic Acid) 1 mg PO DAILY [facility] Last Admin: 10/26/16 10:13 Dose: 1 mg Hydromorphone HCl (Dilaudid) 0.5 mg IVP Q4H PRN PRN Reason: Muscle spasm Last Admin: 10/24/16 05:38 Dose: 0.5 mg Sodium Chloride (Sodium Chloride 0.9%) 1,000 mls @ 200 mls/hr IV .Q5H [facility] Last Admin: 10/26/16 10:16 Dose: 200 mls/hr Insulin Detemir (Levemir) 12 unit SC HS [facility] Insulin Human Lispro (Humalog Low) 0 units SC ACHS [facility] PRN Reason: Protocol Last Admin: 10/26/16 14:23 Dose: Not Given Insulin Human Lispro (Humalog) 8 units SC AC [facility] Last Admin: 10/26/16 14:23 Dose: 8 units Levetiracetam (Keppra) 500 mg PO BID [facility] Last Admin: 10/26/16 10:13 Dose: 500 mg Lidocaine (Lidoderm) 1 ea TD DAILY [facility] Last Admin: 10/26/16 10:13 Dose: 1 ea Metoclopramide HCl (Reglan) 10 mg IVP Q6H [facility] Last Admin: 10/26/16 14:24 Dose: Not Given Nicotine (Nicoderm Cq) 1 patch TD DAILY [facility] Last Admin: 10/26/16 10:15 Dose: Not Given Ondansetron HCl (Zofran Inj) 4 mg IVP Q4H PRN PRN Reason: Nausea/Vomiting Last Admin: 10/23/16 00:39 Dose: 4 mg Pantoprazole Sodium (Protonix Ec Tab) 40 mg PO 0600 [facility] Last Admin: 10/26/16 05:39 Dose: 40 mg Thiamine HCl (Vitamin B1 Inj) 100 mg IV DAILY [facility] Last Admin: 10/26/16 10:15 Dose: 100 mg Results - Vital Signs Recent Vital Signs: 10/23/16: Blood Pressure: 133/72 Heart Rate: 70 Last Vital Signs Temp 97.6 F 10/26/16 16:00 Pulse 77 10/26/16 16:00 Resp 18 10/26/16 16:00 BP 141/84 10/26/16 16:00 Pulse Ox 100 10/26/16 16:00 - Labs Result Diagrams: 10/26/16 06:15 10/26/16 06:15 Labs: 10/23/16: Bicarbonate: 10 Glucose: 441 Troponin: Negative x 1 Hemoglobin: 13.8 WBC: 17.9 EKG: Normal sinus rhythm within normal limits. Laboratory Results - last 24 hr 10/26/16 10/26/16 10/26/16 06:15 06:15 06:15 WBC 6.1 D RBC 4.01 Hgb 12.9 L Hct 37.0 L MCV 92.3 MCH 32.2 MCHC 34.9 RDW 12.6 Plt Count 160 MPV 10.2 Gran % 66.3 Lymph % (Auto) 18.2 L Gooding % (Auto) 14.3 H Eos % (Auto) 1.0 L Baso % (Auto) 0.2 Gran # 4.07 Lymph # 1.1 L Gooding # 0.9 H Eos # 0.1 Baso # 0.01 Sodium 141 Potassium 3.5 L Chloride 104 Carbon Dioxide 30 Anion Gap 11 BUN 7 Creatinine 0.7 Est GFR ( Amer) > 60 Est GFR (Non-Af Amer) > 60 Random Glucose 53 L Lactic Acid 0.6 L Calcium 9.0 Phosphorus 3.8 Magnesium 1.7 Total Bilirubin 0.6 Direct Bilirubin 0.2 AST 155 H ALT 65 H Alkaline Phosphatase 69 Total Creatine Kinase 96293 H CK-MB (CK-2) 1.6 CK-MB (CK-2) % Cancelled Troponin I < 0.01 Total Protein 6.9 Albumin 3.9 Globulin 3.0 Albumin/Globulin Ratio 1.3 - EKG Data EKG comments: EKG: Normal sinus rhythm within normal limits. Assessment & Plan - Assessment and Plan (Free Text) Assessment: 1)DKA 2)Diabetes mellitus 3)Active smoker 4)Questionable seizure 5)No evidence for acute coronary syndrome Plan: 1)Given these findings, there is no indication for any cardiac intervention at this time. 2)Patient has been counselled about the need to stop smoking. - Date & Time Date: 10/23/16
--- NOTE | 2016-10-26 19:51 | PROCN ---
ELECTROENCEPHALOGRAM REPORT DATE OF STUDY: 10/23/2016 INTRODUCTION: This is a digitally recorded EEG monitoring using standard EEG montages. BACKGROUND RHYTHM: The EEG shows a background activity of 9 to 10 Hertz alpha activity in parieto-occipital region. The EEG activity is bilateral, symmetrical, and synchronous. There is attenuation of the background activity on eye opening. No sleep recording was noted. ABNORMAL POTENTIALS: No spike, sharp waves or focal slowing was seen. Photic stimulation and hyperventilation. Photic stimulation did not reveal any abnormality, hyperventilation was not performed. IMPRESSION: Normal EEG. No epileptic form activity seen in this EEG recording.
--- NOTE | 2016-10-26 19:57 | CP.PCM.PN ---
Subjective - Date & Time of Evaluation Date of Evaluation: 10/24/16 Time of Evaluation: 13:00 - Subjective Subjective: The patient is asymptomatic. Objective - Vital Signs/Intake and Output Vital Signs (last 24 hours): 10/24/16: Blood Pressure: 129/73 Heart rate: 70s Temp Pulse Resp BP Pulse Ox 97.6 F 77 18 141/84 100 10/26/16 16:00 10/26/16 16:00 10/26/16 16:00 10/26/16 16:00 10/26/16 16:00 Intake and Output: 10/26/16 10/27/16 18:59 06:59 Intake Total 300 Balance 300 - Medications Medications: Current Medications Enoxaparin Sodium (Lovenox) 40 mg SC DAILY [facility] PRN Reason: Protocol Last Admin: 10/26/16 10:14 Dose: 40 mg Ergocalciferol (Drisdol 50,000 Intl Units Cap) 1 cap PO Q7D [facility] Folic Acid (Folic Acid) 1 mg PO DAILY [facility] Last Admin: 10/26/16 10:13 Dose: 1 mg Hydromorphone HCl (Dilaudid) 0.5 mg IVP Q4H PRN PRN Reason: Muscle spasm Last Admin: 10/24/16 05:38 Dose: 0.5 mg Sodium Chloride (Sodium Chloride 0.9%) 1,000 mls @ 200 mls/hr IV .Q5H [facility] Last Admin: 10/26/16 10:16 Dose: 200 mls/hr Insulin Detemir (Levemir) 12 unit SC HS DIMITRI Insulin Human Lispro (Humalog Low) 0 units SC ACHS [facility] PRN Reason: Protocol Last Admin: 10/26/16 17:21 Dose: Not Given Insulin Human Lispro (Humalog) 8 units SC AC [facility] Last Admin: 10/26/16 17:24 Dose: 8 units Levetiracetam (Keppra) 500 mg PO BID [facility] Last Admin: 10/26/16 17:22 Dose: 500 mg Lidocaine (Lidoderm) 1 ea TD DAILY [facility] Last Admin: 10/26/16 10:13 Dose: 1 ea Metoclopramide HCl (Reglan) 10 mg IVP Q6H [facility] Last Admin: 10/26/16 14:24 Dose: Not Given Nicotine (Nicoderm Cq) 1 patch TD DAILY [facility] Last Admin: 10/26/16 10:15 Dose: Not Given Ondansetron HCl (Zofran Inj) 4 mg IVP Q4H PRN PRN Reason: Nausea/Vomiting Last Admin: 10/23/16 00:39 Dose: 4 mg Pantoprazole Sodium (Protonix Ec Tab) 40 mg PO 0600 [facility] Last Admin: 10/26/16 05:39 Dose: 40 mg Thiamine HCl (Vitamin B1 Inj) 100 mg IV DAILY [facility] Last Admin: 10/26/16 10:15 Dose: 100 mg - Labs Labs: 10/24/16: Troponin: Negative Bicarbonate: 24 Hemoglobin: 11.2 10/26/16 06:15 10/26/16 06:15 PT 10.8 Seconds (9.9-11.8) 10/22/16 15:50 INR 1.00 (0.93-1.08) 10/22/16 15:50 APTT 27.1 Seconds (23.7-30.8) 10/22/16 15:50 - Neck Exam Additional comments: Negative JVD - Respiratory Exam Respiratory Exam: absent: Rales - Cardiovascular Exam Cardiovascular Exam: +S1, +S2 - Extremities Exam Extremities Exam: absent: Pedal Edema Assessment and Plan - Assessment and Plan (Free Text) Assessment: 1) Status post DKA 2) History of syncope 3) Diabetes mellitus Plan: 1) Given these findings, will check his Echocardiogram to evaluate LV function.
[2016-10-26] MEDS ORDERED: Insulin Detemir 100 units/ml Vial (Levemir) SC SCH (22:00)
--- NOTE | 2016-10-27 00:19 | PN ---
DATE: 10/26/2016 CARDIOLOGY FOLLOWUP SUBJECTIVE: The patient is sitting in the chair, asymptomatic, without shortness of breath, without chest pain. PHYSICAL EXAMINATION VITAL SIGNS: Blood pressure is 136/85, heart rate is in the 60s. NECK: Negative JVD. LUNGS: Without rales. CARDIOPULMONARY: Heart reveals S1, S2. EXTREMITIES: Without edema. LABORATORY DATA: Reveals the BUN and creatinine are normal. The total CPK is up to 10,000 with troponins that are negative. The hemoglobin is 12.9. Echocardiogram reveals good LV function. IMPRESSION: 1. Status post diabetic ketoacidosis. 2. Status post fall, was likely due to seizure from metabolic causes. 3. Rhabdomyolysis, likely from his fall and seizure. 4. Diabetes mellitus. Given these findings, the patient's cardiac status is stable despite his diabetes mellitus. There is no evidence of myocardial damage. Jose Alvarado MD
[2016-10-27 06:19] LABS: BASO # 0.01 K/mm3 (0.0-2.0); BASO % 0.2 % (0.0-3.0); EOS # 0.1 (0.0-0.7); EOS % 1.8 % (1.5-5.0); GRAN # 3.52 (1.4-6.5); GRAN % 64.6 % (50.0-68.0); LYMPH # 1.1 (1.2-3.4); LYMPH % 20.4 % (22.0-35.0); MEAN CELL VOLUME 91.3 fL (80.0-105.0); MEAN CORPUSCULAR HEMOGLOBIN 31.6 pg (25.0-35.0); MEAN CORPUSCULAR HGB CONC 34.6 g/dl (31.0-37.0); MEAN PLATELET VOLUME 10.2 fl (7.0-11.0); MONO # 0.7 (0.1-0.6); PLATELET COUNT 167 10^3/uL (120.0-450.0); RBC 4.12 10^6/uL (3.5-6.1); RED CELL DISTRIBUTION WIDTH 12.4 % (11.5-14.5); WHITE BLOOD COUNT 5.5 10^3/ul (4.5-11.0)
[2016-10-27 06:30] LABS: ALB/GLOB RATIO 1.3 (1.1-1.8); ALBUMIN 3.9 g/dL (3.0-4.8); ALT/SGPT 80 U/L (7-56); AST/SGOT 167 U/L (15-59); BILIRUBIN,DIRECT 0.2 mg/dL (0.0-0.4); BLOOD UREA NITROGEN 10 mg/dL (7-21); CALCIUM 8.9 mg/dL (8.4-10.5); GFR AFRICAN-AMERICAN > 60; GFR NON-AFRICAN AMERICAN > 60; MAGNESIUM 1.7 mg/dL (1.7-2.2)
[2016-10-27] MEDS: Pantoprazole 40 mg EC Tab PO SCH (06:31)
[2016-10-27] MEDS: HYDROmorphone 0.5 mg/0.5 ml ISec IVP PRN ×3 (06:32→21:12)
[2016-10-27 06:38] LABS: TROPONIN I < 0.01 ng/mL
[2016-10-27 07:02] LABS: CK-MB 1.5 ng/mL (0.0-3.6)
--- NOTE | 2016-10-27 07:59 | CP.PCM.PN ---
Subjective - Date & Time of Evaluation Date of Evaluation: 10/27/16 Time of Evaluation: 07:20 - Subjective Subjective: (covering for Dr. Eastman) Patient is seen this morning. He had some neck pain last night. He denies abdominal pain. Objective - Vital Signs/Intake and Output Vital Signs (last 24 hours): Temp Pulse Resp BP Pulse Ox 98.9 F 66 20 125/74 98 10/27/16 07:38 10/27/16 07:38 10/27/16 07:38 10/27/16 07:38 10/27/16 07:38 Intake and Output: 10/27/16 10/27/16 06:59 18:59 Intake Total 920 Balance 920 - Medications Medications: Current Medications Enoxaparin Sodium (Lovenox) 40 mg SC DAILY [facility] PRN Reason: Protocol Last Admin: 10/26/16 10:14 Dose: 40 mg Ergocalciferol (Drisdol 50,000 Intl Units Cap) 1 cap PO Q7D [facility] Folic Acid (Folic Acid) 1 mg PO DAILY [facility] Last Admin: 10/26/16 10:13 Dose: 1 mg Hydromorphone HCl (Dilaudid) 0.5 mg IVP Q4H PRN PRN Reason: Muscle spasm Last Admin: 10/27/16 06:32 Dose: 0.5 mg Sodium Chloride (Sodium Chloride 0.9%) 1,000 mls @ 200 mls/hr IV .Q5H [facility] Last Admin: 10/26/16 10:16 Dose: 200 mls/hr Insulin Detemir (Levemir) 12 unit SC HS [facility] Last Admin: 10/26/16 21:43 Dose: 12 unit Insulin Human Lispro (Humalog Low) 0 units SC ACHS [facility] PRN Reason: Protocol Last Admin: 10/26/16 21:44 Dose: Not Given Insulin Human Lispro (Humalog) 10 units SC AC [facility] Levetiracetam (Keppra) 500 mg PO BID [facility] Last Admin: 10/26/16 17:22 Dose: 500 mg Lidocaine (Lidoderm) 1 ea TD DAILY [facility] Last Admin: 10/26/16 10:13 Dose: 1 ea Metoclopramide HCl (Reglan) 10 mg IVP Q6H [facility] Last Admin: 10/27/16 06:32 Dose: 10 mg Nicotine (Nicoderm Cq) 1 patch TD DAILY [facility] Last Admin: 10/26/16 10:15 Dose: Not Given Ondansetron HCl (Zofran Inj) 4 mg IVP Q4H [facility] PRN Reason: Nausea/Vomiting Last Admin: 10/23/16 00:39 Dose: 4 mg Pantoprazole Sodium (Protonix Ec Tab) 40 mg PO 0600 [facility] Last Admin: 10/27/16 06:31 Dose: 40 mg Thiamine HCl (Vitamin B1 Inj) 100 mg IV DAILY [facility] Last Admin: 10/26/16 10:15 Dose: 100 mg - Labs Labs: 10/27/16 06:00 10/27/16 06:00 PT 10.8 Seconds (9.9-11.8) 10/22/16 15:50 INR 1.00 (0.93-1.08) 10/22/16 15:50 APTT 27.1 Seconds (23.7-30.8) 10/22/16 15:50 - Constitutional Appears: No Acute Distress - Respiratory Exam Respiratory Exam: Clear to Ausculation Bilateral, NORMAL BREATHING PATTERN - Cardiovascular Exam Cardiovascular Exam: +S1, +S2 - GI/Abdominal Exam GI & Abdominal Exam: Soft, Normal Bowel Sounds. absent: Tenderness - Neurological Exam Neurological Exam: Alert, Awake, Oriented x3 Assessment and Plan - Assessment and Plan (Free Text) Assessment: Diabetic Ketoacidosis Rhabdomyolysis Juvenile diabetes Syncope Elevated liver enzymes Plan: Patient's CPK is decreasing slowly. continue IV hydration. Blood sugar 47 yesterday morning; Levemir was decreased to 12 units at night; this morning blood sugar is 220. Will increase evening dose of levemir to 16 units ultrasound of abdomen - adenomyomatosis vs. polyps in the gallbladder liver enzymes continue to rise; will order hepatitis profile
[2016-10-27] MEDS: Insulin Lispro (humaLOG) LOW Coverage SC SCH ×4 (08:06→21:11)
[2016-10-27] MEDS: Insulin Lispro 1 UNITS/0.01 ML SC SCH ×3 (08:11→16:44)
[2016-10-27] MEDS: Lidocaine 5% Patch TD SCH (09:58)
[2016-10-27] MEDS: Enoxaparin 40 mg Syringe SC SCH (09:58)
[2016-10-27] MEDS: Sodium Chloride 0.9% 1,000 ML IV SCH ×2 (09:59→22:25)
[2016-10-27] MEDS: Thiamine 100 mg/ml Inj IV SCH (10:04)
--- NOTE | 2016-10-27 11:18 | PN ---
DATE: 10/25/2016 SUBJECTIVE: The patient was seen in room 560, bed 2. The patient is out of bed to chair. The patient's father is at bedside. The patient is alert, awake, responsive. The patient is stating that he feels so much better since the day he came in. The patient overnight transfer notes were reviewed. No adverse event documented. The patient was seen by the vamp throater. PHYSICAL EXAMINATION VITAL SIGNS: T-max 98, heart rate 59 to 95 to 75 to 78 to 65, blood pressure 135/80, 127/75, 129/73, 124/64, respirations 20, O2 saturations 99%. HEENT: Head examination, normocephalic and atraumatic. HEENT examination shows pinkish conjunctivae, anicteric sclerae, dry oral mucosa. NECK: No neck rigidity. Slight trapezius muscle tenderness. The patient is able to elevate both upper extremity without any assistance. CARDIOVASCULAR: S1 and S2, regular rhythm. LUNGS: Clear lung sahni. ABDOMEN: Soft. Positive bowel sounds. Genitalia, male. RECTAL: Deferred. EXTREMITIES: Show no pitting edema. No *------*. No Homans sign. MUSCULOSKELETAL: Shows a body mass index of 23. Plantars are downgoing. DTRs are 2+. LABORATORY DATA: On 10/25, WBC 8.1, hemoglobin and hematocrit 12.7 and 37.6, platelets 168, granulocytes, 72% segs. Sodium 140, potassium 3.2, chloride 102, CO2 of 27, chloride 114, BUN 7, creatinine 0.7, GFR greater than 60. Glucose 48. Further fingerstick blood sugar 311, 261, 209. Lactic acid is down to 0.7 from 12.8. AST 101. CPK has gone up to 5355. Troponin is negative. Procalcitonin level is elevated at 0.64. Urine blood culture is negative. The patient's cervical spine MRI and MRI of the brain were noted and explained to the patient at length in layman's language. The patient's echocardiogram was done yesterday which was also reviewed and explained to the patient. The patient's EKG from today was reviewed, which was normal sinus rhythm. The patient was seen by Infectious Disease. MEDICATIONS: Current medications, 1. Dilaudid 0.5 mg IV q.4 p.r.n. 2. Vitamin D 50,000 weekly. 3. Flexeril 5 mg 3 times a day p.r.n. 4. Folic acid 1 mg daily. 5. Humalog 12 units with meals. 6. Humalog low-dose sliding scale coverage. 7. Keppra 500 twice a day. 8. Levemir 24 units at bedtime. 9. Lidoderm 5% patch to the neck, cervical spine area. 10. Lovenox 40 mg subcu daily for DVT prophylaxis. 11. Nicotine patch 21 mg daily. 12. The patient is supplemented with potassium today. 13. Protonix 40 mg daily. 14. Reglan 10 mg IV q.6. 15. IV fluid 0.9 normal saline at 200 mL an hour. 16. Thiamine 100 mg IV daily. 17. Zofran 4 mg IV q.4 p.r.n. 18. The patient is on seizure precautions. IMPRESSION: 1. Diabetic ketoacidosis (resolved). 2. Increased anion gap metabolic acidosis (resolved). 3. Syncope. 4. Questionable witnessed seizure. 5. Rhabdomyolysis. 6. Systemic inflammatory response syndrome. 7. Possible new-onset seizure. 8. Status post fall. 9. Uncontrolled insulin-dependent diabetes mellitus with hyperglycemia. 10. Tachypnea. 11. Lactic acidosis with increased anion gap metabolic acidosis. 12. History of marijuana abuse. 13. Bilateral cerebral dysfunction on EEG. 14. Hypovitaminosis D. 15. Questionable withdrawal syndrome. 16. Hypokalemia. 17. Leukocytosis with granulocytosis. 18. Mild dilutional anemia. 19. Lactic acidosis. 20. Uncontrolled diabetes mellitus with hyperglycemia and hypoglycemia. 21. Uncontrolled insulin-requiring diabetes mellitus with hemoglobin A1c of 8.9. 22. Hyperprocalcitoninemia. 23. History of possible noncompliance. 24. Elevated *cortisol level of 41. 25. Elevated ACTH level of 122. 26. Glycosuria. 27. History of marijuana abuse. 28. History of poor compliance. 29. Left ventricular ejection fraction of 55%. 30. Trace tricuspid regurgitation with right ventricular systolic pressure of 32 mmHg. 31. Ethmoid and frontal sinuses mucosal thickening. 32. 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 33. Possible posttraumatic edema or microtrabecular injuries of the thoracic 4 segment and superior thoracic end-plate. 34. T4-T5 and T3-T4 disk bulge. 35. Straightening of the cervical lordosis secondary to muscle spasm. 36. Cervical spine disk bulge at C5-C6 and C6-C7. PLAN: At this time, the patient has been ordered repeat fingerstick monitoring. CURRENT CONSULTATION: 1. Infectious Disease. 2. Endocrinology. 3. Neurology. 4. Cardiology. The patient is seen by the addiction social worker. DISCHARGE PLAN: Discharge home once the patient's diabetes is under control and rhabdomyolysis has resolved. The patient has been updated about his condition with the patient's father present at bedside. All questions and concerns answered to his satisfaction. Vikash Eastman MD cc:
[2016-10-27 12:26] LABS: HEPATITIS B SURFACE AG NEGATIVE (NEGATIVE)
[2016-10-27 12:31] LABS: HEPATITIS A IGM NEGATIVE (NEGATIVE)
[2016-10-27 12:32] LABS: HEPATITIS B CORE AB NEGATIVE (NEGATIVE)
[2016-10-27 14:02] LABS: HEPATITIS C ANTIBODY NEGATIVE (NEGATIVE)
[2016-10-27] MEDS: Insulin Detemir 100 units/ml Vial (Levemir) SC SCH (21:12)
[2016-10-27] MEDS ORDERED: Insulin Detemir 100 units/ml Vial (Levemir) SC SCH (22:00)
[2016-10-28] MEDS: Sodium Chloride 0.9% 1,000 ML IV SCH ×2 (02:11→16:58)
[2016-10-28] MEDS: HYDROmorphone 0.5 mg/0.5 ml ISec IVP PRN ×3 (03:28→21:40)
[2016-10-28] MEDS: Pantoprazole 40 mg EC Tab PO SCH (05:50)
[2016-10-28 07:30] VITALS: RESP 20
[2016-10-28 07:56] LABS: BASO # 0.01 K/mm3 (0.0-2.0); BASO % 0.2 % (0.0-3.0); EOS # 0.2 (0.0-0.7); EOS % 2.6 % (1.5-5.0); GRAN # 3.24 (1.4-6.5); GRAN % 56.1 % (50.0-68.0); HEMOGLOBIN 13.4 gm/dL (14.0-18.0); LYMPH # 1.5 (1.2-3.4); LYMPH % 25.5 % (22.0-35.0); MEAN CELL VOLUME 92.2 fL (80.0-105.0); MEAN CORPUSCULAR HEMOGLOBIN 31.5 pg (25.0-35.0); MEAN CORPUSCULAR HGB CONC 34.2 g/dl (31.0-37.0); MEAN PLATELET VOLUME 10.3 fl (7.0-11.0); MONO # 0.9 (0.1-0.6); MONO % 15.6 % (1.0-6.0); PLATELET COUNT 196 10^3/uL (120.0-450.0); RBC 4.25 10^6/uL (3.5-6.1); RED CELL DISTRIBUTION WIDTH 12.5 % (11.5-14.5); WHITE BLOOD COUNT 5.8 10^3/ul (4.5-11.0)
--- NOTE | 2016-10-28 08:09 | CP.PCM.PN ---
Subjective - Date & Time of Evaluation Date of Evaluation: 10/28/16 Time of Evaluation: 07:45 - Subjective Subjective: (covering for Dr. Eastman) Patient is seen this morning. He is feeling better. Objective - Vital Signs/Intake and Output Vital Signs (last 24 hours): Temp Pulse Resp BP Pulse Ox 98 F 61 20 149/84 98 10/28/16 07:29 10/28/16 07:29 10/28/16 07:29 10/28/16 07:29 10/28/16 07:29 Intake and Output: 10/28/16 10/28/16 06:59 18:59 Intake Total 5040 Balance 5040 - Medications Medications: Current Medications Enoxaparin Sodium (Lovenox) 40 mg SC DAILY [facility] PRN Reason: Protocol Last Admin: 10/27/16 09:58 Dose: 40 mg Ergocalciferol (Drisdol 50,000 Intl Units Cap) 1 cap PO Q7D [facility] Folic Acid (Folic Acid) 1 mg PO DAILY [facility] Last Admin: 10/27/16 09:58 Dose: 1 mg Hydromorphone HCl (Dilaudid) 0.5 mg IVP Q4H [facility] PRN Reason: Muscle spasm Last Admin: 10/28/16 03:28 Dose: 0.5 mg Sodium Chloride (Sodium Chloride 0.9%) 1,000 mls @ 200 mls/hr IV .Q5H [facility] Last Admin: 10/28/16 02:11 Dose: 200 mls/hr Insulin Detemir (Levemir) 20 unit SC HS [facility] Last Admin: 10/27/16 21:12 Dose: 20 unit Insulin Human Lispro (Humalog Low) 0 units SC ACHS [facility] PRN Reason: Protocol Last Admin: 10/27/16 21:11 Dose: Not Given Insulin Human Lispro (Humalog) 12 units SC AC DIMITRI Levetiracetam (Keppra) 500 mg PO BID [facility] Last Admin: 10/27/16 17:11 Dose: 500 mg Lidocaine (Lidoderm) 1 ea TD DAILY [facility] Last Admin: 10/27/16 09:58 Dose: 1 ea Metoclopramide HCl (Reglan) 10 mg IVP Q6H [facility] Last Admin: 10/28/16 05:50 Dose: 10 mg Nicotine (Nicoderm Cq) 1 patch TD DAILY [facility] Last Admin: 10/27/16 09:59 Dose: Not Given Ondansetron HCl (Zofran Inj) 4 mg IVP Q4H [facility] PRN Reason: Nausea/Vomiting Last Admin: 10/23/16 00:39 Dose: 4 mg Pantoprazole Sodium (Protonix Ec Tab) 40 mg PO 0600 [facility] Last Admin: 10/28/16 05:50 Dose: 40 mg Thiamine HCl (Vitamin B1 Inj) 100 mg IV DAILY [facility] Last Admin: 10/27/16 10:04 Dose: 100 mg - Labs Labs: 10/28/16 06:45 10/27/16 06:00 PT 10.8 Seconds (9.9-11.8) 10/22/16 15:50 INR 1.00 (0.93-1.08) 10/22/16 15:50 APTT 27.1 Seconds (23.7-30.8) 10/22/16 15:50 - Constitutional Appears: No Acute Distress - Respiratory Exam Respiratory Exam: Clear to Ausculation Bilateral, NORMAL BREATHING PATTERN - Cardiovascular Exam Cardiovascular Exam: +S1, +S2 - GI/Abdominal Exam GI & Abdominal Exam: Soft, Normal Bowel Sounds. absent: Tenderness - Neurological Exam Neurological Exam: Alert, Awake, Oriented x3 Assessment and Plan - Assessment and Plan (Free Text) Assessment: Diabetic ketoacidosis Rhabdomyolysis Juvenile diabetes Seizure Abnormal LFTs Plan: Patient is feeling better. CPK elevated, now decreased - continue IV hydration liver enzymes were rising; today's enzymes are trending downward - U/S abdomen shows polyps of thegallbladder. Hepatitis panel is pending; elevated liver enzymes maybe secondary to rhabdomyolysis continue insulin for diabetes as per endocrine
[2016-10-28] MEDS: Insulin Lispro 1 UNITS/0.01 ML SC SCH ×3 (08:15→16:56)
[2016-10-28] MEDS: Insulin Lispro (humaLOG) LOW Coverage SC SCH ×4 (08:15→23:17)
[2016-10-28 08:24] LABS: ALB/GLOB RATIO 1.3 (1.1-1.8); ALBUMIN 4.2 g/dL (3.0-4.8); BILIRUBIN,DIRECT 0.3 mg/dL (0.0-0.4); MAGNESIUM 1.8 mg/dL (1.7-2.2)
[2016-10-28 10:12] LABS: CK-MB 1.2 ng/mL (0.0-3.6)
[2016-10-28] MEDS: Enoxaparin 40 mg Syringe SC SCH (10:20)
[2016-10-28] MEDS: Lidocaine 5% Patch TD SCH (10:21)
[2016-10-28] MEDS: Thiamine 100 mg/ml Inj IV SCH (10:27)
--- NOTE | 2016-10-28 19:00 | PN ---
DATE: ENDOCRINOLOGY FOLLOWUP NOTE ROOM: 560. SUBJECTIVE: This is a 31-year-old male with recent uncontrolled type 1 insulin-dependent diabetes presenting here with diabetic ketoacidosis and dehydration and since then improved clinically and metabolically as noted thereof. His oral intake is improving at this time with preferential food intake from home. His glucose values today have ranged from 220 to 271 mg/dL. LABORATORY DATA: His latest chemistry showed a BUN of 10, sodium 137, potassium 4.0, chloride 100, CO2 of 29, glucose 220, and creatinine 0.6. His creatine kinase is 10,286, and this clearly is related to the recent accident fall at home from a possible seizure event and/or metabolic event. This should really be clearly a muscle component with enzyme, subtype of MM fraction since his CK-MB is normal. ASSESSMENT AND PLAN: So, at this time, he received vigorous IV hydration and intensive insulin therapy and has improved remarkably through the present time. For now, we will titrate once again his basal and bolus insulin regimen and increase the Levemir to 20 units subcu at bedtime daily to start tonight. We will continue also the low-dose correction scale using Humalog insulin as ordered to *------* hypoglycemia and detailed orders have been given. We will also increase his Humalog to 12 units subcu t.i.d. before meals to start breakfast time tomorrow morning as ordered. We will obtain serial chemistries and supplement accordingly as needed. We will follow this. Marta Sebastian MD
[2016-10-28] MEDS: Insulin Detemir 100 units/ml Vial (Levemir) SC SCH (21:40)
[2016-10-29] MEDS: HYDROmorphone 0.5 mg/0.5 ml ISec IVP PRN (02:32)
[2016-10-29] MEDS: Pantoprazole 40 mg EC Tab PO SCH (05:43)
[2016-10-29 07:10] LABS: BASO # 0.01 K/mm3 (0.0-2.0); BASO % 0.1 % (0.0-3.0); EOS # 0.2 (0.0-0.7); EOS % 2.5 % (1.5-5.0); GRAN # 4.72 (1.4-6.5); GRAN % 62.5 % (50.0-68.0); HEMOGLOBIN 14.1 gm/dL (14.0-18.0); LYMPH # 1.7 (1.2-3.4); LYMPH % 21.8 % (22.0-35.0); MEAN CELL VOLUME 92.6 fL (80.0-105.0); MEAN CORPUSCULAR HEMOGLOBIN 31.7 pg (25.0-35.0); MEAN CORPUSCULAR HGB CONC 34.2 g/dl (31.0-37.0); MEAN PLATELET VOLUME 10.3 fl (7.0-11.0); MONO % 13.1 % (1.0-6.0); PLATELET COUNT 216 10^3/uL (120.0-450.0); RBC 4.45 10^6/uL (3.5-6.1); RED CELL DISTRIBUTION WIDTH 12.6 % (11.5-14.5); WHITE BLOOD COUNT 7.6 10^3/ul (4.5-11.0)
[2016-10-29 07:26] LABS: ALB/GLOB RATIO 1.4 (1.1-1.8); ALBUMIN 4.5 g/dL (3.0-4.8); ALT/SGPT 72 U/L (7-56); AST/SGOT 82 U/L (15-59); BILIRUBIN,DIRECT 0.3 mg/dL (0.0-0.4); BLOOD UREA NITROGEN 8 mg/dL (7-21); CALCIUM 9.3 mg/dL (8.4-10.5); GFR AFRICAN-AMERICAN > 60; GFR NON-AFRICAN AMERICAN > 60; MAGNESIUM 1.9 mg/dL (1.7-2.2)
[2016-10-29 07:42] LABS: CK-MB 0.9 ng/mL (0.0-3.6)
[2016-10-29] MEDS: Sodium Chloride 0.9% 1,000 ML IV SCH ×2 (07:45→17:35)
[2016-10-29] MEDS: Insulin Lispro (humaLOG) LOW Coverage SC SCH ×3 (08:30→17:34)
[2016-10-29] MEDS: Insulin Lispro 1 UNITS/0.01 ML SC SCH ×3 (08:30→17:33)
--- NOTE | 2016-10-29 09:44 | PN ---
DATE: 10/22/2016 ROOM 560. SUBJECTIVE: This is a 31-year-old male with recent uncontrolled type 1 insulin dependent diabetes, presenting here with intractable vomiting and associated nausea, dyspepsia and upper abdominal pain and since then improved clinically and metabolically as noted. His oral intake is quite variable as per the patient and the nursing staff with preferential food intake from home as noted. His latest chemistries showed a BUN of 10, sodium 137, potassium 4.0, chloride 100, CO2 of 29, glucose 220 and creatinine 0.6. His thyroid studies were actually reported as normal. The creatine kinase is 4981 today as noted. His liver function tests are slightly elevated. His glucose values have ranged from 64 earlier this morning to 265 at lunch time today and it was 341 at bedtime last night. *------*quite extreme in terms of glycemic fluctuations and has been advised to improve his oral intake even if he has 3 small snacks and 3 small meals all day long. We will continue the same basal and bolus insulin regimen to allow for dose equilibration and keep him on the Levemir given as 20 units subcutaneous at bedtime daily as ordered. We will continue the Humalog given as 12 units subcutaneous t.i.d. before meals as ordered. We will titrate incremental as indicated to optimize metabolic control. We will follow. Marta Sebastian MD
--- NOTE | 2016-10-29 10:00 | PN ---
Insulin therapy *------* Sodium 141, potassium *------* lower the Levemir to 12 units subcutaneous at bedtime daily and Humalog down to 8 units subcutaneous *------* correction scale has been used to *------*. Marta Sebastian MD
--- NOTE | 2016-10-29 10:23 | PN ---
NEUROLOGY PROGRESS NOTE SUBJECTIVE: The patient is lying on the bed, in no acute distress. Denies having any headache or dizziness. Denies any neck pain or upper back pain. PHYSICAL EXAMINATION VITAL SIGNS: Blood pressure is 127/75, heart rate is 95 per minute, breathing at a rate of 16 per minute, temperature is 98 degrees Fahrenheit. HEENT: Head is normocephalic, atraumatic. NECK: Supple. There are no carotid bruits. CARDIOPULMONARY: S1, S2 audible. No murmurs. LUNGS: Clear. ABDOMEN: Soft and nontender with bowel sounds present. NEUROLOGICAL: Mental Status: The patient is awake, alert, oriented to time, place, and person. Speech is fluent. Naming of the patient normal. Memory and cognition are intact. Cranial nerve exam; pupils are 4 mm bilaterally, reactive to light. Visual sahni are full. Extraocular movements are intact. There is no facial asymmetry. Palate is upgoing bilaterally and tongue is midline. Motor examination: Tone is normal. Power is 5/5 bilaterally in all extremities. Reflexes are +2 and symmetrical. Plantars downgoing bilaterally. LABORATORY DATA: Reviewed. MRI of the cervical spine shows there is mild edema within the superior aspect of the T4 and to a lesser degree anterior-superior corner of the T3 segments may represent mild micro-trabecular injury with slight deformity and stature loss of the anterior-superior endplate of T4 and minimal concave appearance of the superior endplate of T3. Recommend followup MRI in 3 to 6 weeks. The patient also had MRI of the brain, which shows no acute intracranial abnormality. IMPRESSION: New-onset seizure. RECOMMENDATIONS: 1. The patient has no further episode of seizure-like activity. 2. The patient to be continued on Keppra 500 mg twice a day. This may be switched to p.o./oral. 3. The patient to have a repeat MRI of the cervical/upper thoracic spine in about 6 weeks. The patient is asymptomatic and has no neck pain or upper back pain. 4. Continue with the treatment and supportive care. 5. No further neurologic recommendations. Please follow Neurology on an as-needed basis. Thank you for the opportunity to participate in the care of this patient. Rea Mae MD [facility] # [id number]
--- NOTE | 2016-10-29 10:25 | CP.PCM.PN ---
Subjective - Date & Time of Evaluation Date of Evaluation: 10/29/16 Time of Evaluation: 07:50 - Subjective Subjective: Internal Medicine Progress Note for Dr. Eastman Patient seen and examined at bedside. Today is hospital day 8. No acute events overnight. Patient resting comfortably in bedside chair on exam. Shoulder pain resolved, remaining pain in primarily in neck, mainly stiffness and soreness, most notably when waking up. Some restriction of neck ROM due to pain, but improved with slow movement and gradual stretching done by patient; denies abnormal physiologic barriers or acute loss of ROM. Denies paresthesias , dizziness, room-spinning, syncope/near-syncope, emesis, nausea, chest pain, shortness of breath. Objective - Vital Signs/Intake and Output Vital Signs (last 24 hours): Temp Pulse Resp BP Pulse Ox 97.8 F 63 20 119/72 97 10/29/16 07:27 10/29/16 07:27 10/29/16 07:27 10/29/16 07:27 10/29/16 07:27 Intake and Output: 10/29/16 10/29/16 06:59 18:59 Intake Total 5580 Balance 5580 - Medications Medications: Current Medications Enoxaparin Sodium (Lovenox) 40 mg SC DAILY [facility] PRN Reason: Protocol Last Admin: 10/28/16 10:20 Dose: 40 mg Ergocalciferol (Drisdol 50,000 Intl Units Cap) 1 cap PO Q7D [facility] Folic Acid (Folic Acid) 1 mg PO DAILY [facility] Last Admin: 10/28/16 10:27 Dose: 1 mg Sodium Chloride (Sodium Chloride 0.9%) 1,000 mls @ 200 mls/hr IV .Q5H [facility] Last Admin: 10/28/16 16:58 Dose: 200 mls/hr Insulin Detemir (Levemir) 20 unit SC HS [facility] Last Admin: 10/28/16 21:40 Dose: 20 unit Insulin Human Lispro (Humalog Low) 0 units SC ACHS [facility] PRN Reason: Protocol Last Admin: 10/29/16 08:30 Dose: Not Given Insulin Human Lispro (Humalog) 12 units SC AC [facility] Last Admin: 10/29/16 08:30 Dose: 12 units Levetiracetam (Keppra) 500 mg PO BID [facility] Last Admin: 10/28/16 17:01 Dose: 500 mg Lidocaine (Lidoderm) 1 ea TD DAILY [facility] Last Admin: 10/28/16 10:21 Dose: 1 ea Metoclopramide HCl (Reglan) 10 mg IVP Q6H [facility] Last Admin: 10/29/16 05:43 Dose: 10 mg Nicotine (Nicoderm Cq) 1 patch TD DAILY [facility] Last Admin: 10/28/16 11:00 Dose: Not Given Ondansetron HCl (Zofran Inj) 4 mg IVP Q4H [facility] PRN Reason: Nausea/Vomiting Last Admin: 10/23/16 00:39 Dose: 4 mg Pantoprazole Sodium (Protonix Ec Tab) 40 mg PO 0600 [facility] Last Admin: 10/29/16 05:43 Dose: 40 mg Thiamine HCl (Vitamin B1 Inj) 100 mg IV DAILY [facility] Last Admin: 10/28/16 10:27 Dose: 100 mg - Labs Labs: 10/29/16 06:35 10/29/16 06:35 PT 10.8 Seconds (9.9-11.8) 10/22/16 15:50 INR 1.00 (0.93-1.08) 10/22/16 15:50 APTT 27.1 Seconds (23.7-30.8) 10/22/16 15:50 - Additional Findings Additional findings: - Constitutional Appears: Non-toxic, No Acute Distress, Resting comfortably in chair - Head Exam Mild healing contusion along anterior midline of skull, minimal erythema remains visible, no gross deformity - Eye Exam Eye Exam: EOMI, Normal appearance. absent: Conjunctival injection, Scleral icterus Pupil Exam: absent: Irregular, Unequal - ENT Exam ENT Exam: Mucous Membranes Moist. absent: Mucous Membranes Dry - Neck Exam Neck Exam: Tenderness (posteriorly only, along cervical paraspinals, so vertebral tenderness), Full passive ROM and full ROM with slow movement, some voluntary restriction of ROM due to neck soreness/stiffness when awaking. absent: Lymphadenopathy, Thyromegaly - Respiratory Exam Respiratory Exam: Clear to Ausculation Bilateral, NORMAL BREATHING PATTERN. absent: Accessory Muscle Use, Chest Wall Tenderness, Decreased Breath Sounds, Rales, Rhonchi, Wheezes - Cardiovascular Exam Cardiovascular Exam: REGULAR RHYTHM, RRR, +S1, +S2. absent: Bradycardia, Tachycardia, Irregular Rhythm, JVD, +S4 - GI/Abdominal Exam GI & Abdominal Exam: Soft, Normal Bowel Sounds. absent: Distended, Firm, Rigid , Tenderness, Diminished Bowel Sounds, Hyperactive Bowel Sounds, Hypoactive Bowel Sounds - Extremities Exam Extremities Exam: Normal Capillary Refill, Normal Inspection. absent: Calf Tenderness, Joint Swelling, Pedal Edema, Tenderness - Neurological Exam Neurological Exam: awake and alert, following commands appropriately, spontaneous movement of all extremities, no gross motor deficit - Psychiatric Exam Psychiatric exam: Normal Affect, Normal Mood - Skin Skin Exam: Dry, Intact (some scattered abrasions on bilateral LE at knees, otherwise intact), Normal Color, Warm Assessment and Plan - Assessment and Plan (Free Text) Assessment: This is a 31 yo M with PMH of IDDM who [place] [facility] [place] episode with fall and head trauma (witnessed) and was found to be in DKA and had a suspected witnessed seizure. DKA has since resolved, no further seizure activity noted, pending resolution of rhabdomyolysis and stabilization of sugars. Plan: 1) Syncope with head injury - 2/2 DKA vs seizure - Cardio (Dr. Alvarado) and Neuro (Dr. Mae) consulted, appreciate all recs - As per Cardio, unlikely cardiac in origin, no acute intervention at this time - ECHO reviewed- EF 55% - EKG NSR, repeat EKG NSR - Trops: Negative X 5 - MRI reviewed-No acute intracranial hemorrhage or infarct. No enhancing lesions seen; follow-up MRI in 3 in 6 weeks to assess for a further stature loss and retropulsion of fragments as per Neuro - CT Cervical Spine, CT head, and CT abd/pelvis all unremarkable - Keppra 500mg IV q12 for seizure ppx 2) DKA - Endo (Dr. Sebastian) consulted, appreciate all recs - gap remains closed and sugars 40-300 in last 24 hours - continue to monitor - Continue BMPs q4 - K wnl this AM, monitor closely and replete as needed 3) Possible Seizure - Neuro (Dr. Mae) consulted, appreciate all recs - EEG read as normal, no epiliptiform activity - continue Keppra IV q12 for ppx 4) Rhabdomyolysis - CK elevated to > 23849 2 days prior, now 1383 - continue to monitor, goal is CK < 1000 prior to consideration for discharge - Renal fxn and K stable, continue to monitor - Continue aggressive IVF, NS at 200cc/hr 5) SIRS Criteria- resolved - Lactate elevated, HR elevated, RR elevated, and WBC elevated on admission - No leukocytosis x5 days, remains afebrile - initial leukocytosis may be 2/2 DKA, stress/pain from fall - ID (Dr. Zapata) consulted, appreciate all recs; all abx stopped Dispo: Med/Surg, continuing aggressive IVF for rhabdo pending improvement of CK , continuing monitoring/adjustment of insulin regimen for DM FEN: Consistent carb, NS 200cc/hr Access: Peripheral IV Consults: Endo, ID, ICU (signed off), Neuro, Cardio Ppx: Lovenox for DVT, Protonix for GI Will discuss with Dr. Eastman
[2016-10-29] MEDS: Thiamine 100 mg/ml Inj IV SCH (10:34)
[2016-10-29] MEDS: Enoxaparin 40 mg Syringe SC SCH (10:34)
[2016-10-29] MEDS: Lidocaine 5% Patch TD SCH ×2 (10:35→10:38)
--- NOTE | 2016-10-29 14:34 | CP.PCM.PN ---
Subjective - Date & Time of Evaluation Date of Evaluation: 10/29/16 Time of Evaluation: 11:25 - Subjective Subjective: Comfortable, afebrile, not in distress. Objective - Vital Signs/Intake and Output Vital Signs (last 24 hours): Temp Pulse Resp BP Pulse Ox 97.8 F 63 20 119/72 97 10/29/16 07:27 10/29/16 07:27 10/29/16 07:27 10/29/16 07:27 10/29/16 07:27 Intake and Output: 10/29/16 10/29/16 06:59 18:59 Intake Total 5580 Balance 5580 - Medications Medications: Current Medications Enoxaparin Sodium (Lovenox) 40 mg SC DAILY [facility] PRN Reason: Protocol Last Admin: 10/28/16 10:20 Dose: 40 mg Ergocalciferol (Drisdol 50,000 Intl Units Cap) 1 cap PO Q7D [facility] Folic Acid (Folic Acid) 1 mg PO DAILY [facility] Last Admin: 10/28/16 10:27 Dose: 1 mg Sodium Chloride (Sodium Chloride 0.9%) 1,000 mls @ 200 mls/hr IV .Q5H [facility] Last Admin: 10/28/16 16:58 Dose: 200 mls/hr Insulin Detemir (Levemir) 20 unit SC HS [facility] Last Admin: 10/28/16 21:40 Dose: 20 unit Insulin Human Lispro (Humalog Low) 0 units SC ACHS [facility] PRN Reason: Protocol Last Admin: 10/29/16 08:30 Dose: Not Given Insulin Human Lispro (Humalog) 12 units SC AC [facility] Last Admin: 10/29/16 08:30 Dose: 12 units Levetiracetam (Keppra) 500 mg PO BID [facility] Last Admin: 10/28/16 17:01 Dose: 500 mg Lidocaine (Lidoderm) 1 ea TD DAILY [facility] Last Admin: 10/28/16 10:21 Dose: 1 ea Metoclopramide HCl (Reglan) 10 mg IVP Q6H [facility] Last Admin: 10/29/16 05:43 Dose: 10 mg Nicotine (Nicoderm Cq) 1 patch TD DAILY [facility] Last Admin: 10/28/16 11:00 Dose: Not Given Ondansetron HCl (Zofran Inj) 4 mg IVP Q4H [facility] PRN Reason: Nausea/Vomiting Last Admin: 10/23/16 00:39 Dose: 4 mg Pantoprazole Sodium (Protonix Ec Tab) 40 mg PO 0600 [facility] Last Admin: 10/29/16 05:43 Dose: 40 mg Thiamine HCl (Vitamin B1 Inj) 100 mg IV DAILY [facility] Last Admin: 10/28/16 10:27 Dose: 100 mg - Labs Labs: 10/29/16 06:35 10/29/16 06:35 PT 10.8 Seconds (9.9-11.8) 10/22/16 15:50 INR 1.00 (0.93-1.08) 10/22/16 15:50 APTT 27.1 Seconds (23.7-30.8) 10/22/16 15:50 - Constitutional Appears: Non-toxic, No Acute Distress - Head Exam Head Exam: NORMAL INSPECTION - Neck Exam Neck Exam: absent: Meningismus - Respiratory Exam Respiratory Exam: Decreased Breath Sounds - Cardiovascular Exam Cardiovascular Exam: +S1, +S2 - GI/Abdominal Exam GI & Abdominal Exam: Soft. absent: Tenderness Assessment and Plan - Assessment and Plan (Free Text) Plan: Assessment Systemic Inflammatory Response Syndrome in a patient with hyperglycemia, with no evidence of sepsis Fall with trauma to the head and new onset seizure DM, poorly compliant hypothyroidism Plan will continue to monitor off antibiotics since he is at risk for nosocomial infections
--- NOTE | 2016-10-29 16:50 | PN ---
DATE: 10/29/2016 SUBJECTIVE: The patient was seen and examined in room 560, bed 2. The patient's father is at bedside. The patient states that he is feeling hell lot better since the day he came out "in his own words." The patient denies any neck pain, denies any shoulder pain, denies any chest pain. Denies any nausea, vomiting or diarrhea. A 13-system review was done. Pertinent positive and negative dictated above. Overnight nurses' notes were reviewed also, no adverse events documented till the last 24 hours. PHYSICAL EXAMINATION: VITAL SIGNS: T-max 98.7, heart rate 63, blood pressure 119/72, 149/74, 149/84, 133/83 and 125/74, respiration 20, O2 sat 97%. HEAD: Normocephalic and atraumatic. HEENT: Shows pink conjunctivae, anicteric sclerae. No oropharyngeal lesion. NECK: No neck rigidity. CHEST: Kyphosis. LUNGS: Show no rales, crackles, or wheezing. CARDIOVASCULAR: S1 and S2. Regular rhythm. ABDOMEN: Soft, positive bowel sounds. GENITALIA: Male. RECTAL: Deferred. EXTREMITIES: Show no pitting edema. No calf tenderness. No Homans signs. No neck rigidity noted. Full range of motion. Upper and lower extremity strength is 5/5. Gait examination is not tested. MUSCULOSKELETAL: Shows a body mass index of 23.2. Gait examination was independent. VASCULAR: Palpable pulses. DIAGNOSTIC DATA: WBC is 7.6, hemoglobin and hematocrit 14.1 and 41.2, platelets 216. Sodium 138, potassium 4.0, chloride 96, CO2 of 30, anion gap is 16, BUN 8, creatinine 0.7, GRF greater than 60, glucose 249, calcium 9.3, phosphorus 3.3, magnesium 1.9, AST is down to 82, ALT down to 72. CPK peaked up to 10,461, down to 1383. LFTs are normal. Hepatitis A, B, C serologies and HIV negative. Blood and urine cultures negative. IMPRESSION: 1. Diabetic ketoacidosis with uncontrolled insulin-requiring diabetes mellitus with hemoglobin A1c of 8.9. 2. Lactic acidosis and increased anion gap metabolic acidosis. 3. Hypokalemia. 4. Transaminitis. 5. Acute rhabdomyolysis with elevated CPK of greater than 10,000. 6. *------*. 7. Hyperprocalcitoninemia. 8. Hypovitaminosis D. 9. Elevated ACTH level of 122 and elevated a.m. cortisol level of 41. 10. Glycosuria. 11. History of marijuana use and nicotine dependence. 12. Possible gallbladder polyps versus adenomyomatosis. 13. Cervical spine degenerative disk disease. 14. Left ventricular ejection fraction of 55%. 15. Trace tricuspid regurgitation with right ventricular systolic pressure of 32 mmHg. 16. Type 1 insulin-dependent diabetes mellitus. 17. Diabetic gastroparesis. 18. Gastroesophageal reflux. 19. Status post syncope. 20. Questionable new-onset seizure. 21. Nicotine addiction and dependence. PLAN: At this time, the patient has been ordered repeat labs. CURRENT CONSULTATION: 1. Infectious Disease. 2. Endocrinology. 3. Neurology. 4. Cardiology. CURRENT MEDICATIONS: 1. Drisdol 50,000 units weekly. 2. Folic acid 1 mg daily. 3. Humalog 12 units a.c. meals. 4. Humalog low-dose sliding scale coverage a.c. and at bedtime. 5. Keppra 500 mg twice a day. 6. Levemir 20 units at bedtime. 7. Lidoderm 5% patch to the affected area. 8. Lovenox 40 mg subQ daily. 9. Nicotine patch 21 mg daily. 10. Protonix 40 mg daily. 11. Reglan 10 mg IV q. 6. 12. IV fluid 0.9 at 200 mL an hour. 13. Thiamine 100 mg IV daily. 14. Zofran 4 mg IV q.4 p.r.n. The patient has been updated about his condition and diagnosis. Treatment plan, management plan has been discussed and explained to the patient and the patient's father at length and all questions and concerns answered, which they acknowledged to understand. Vikash Eastman MD
[2016-10-29] MEDS ORDERED: Insulin Detemir 100 units/ml Vial (Levemir) SC SCH (22:00)
--- NOTE | 2016-10-30 02:09 | PN ---
DATE: Room 560 SUBJECTIVE: This is a 31-year-old male with recent uncontrolled type I insulin dependent diabetes, presenting here with diabetic ketoacidosis and dehydration and has improved remarkably with intensive insulin therapy and vigorous IV hydration as given. His latest glucose values are still fluctuating, ranging from 258 to 399 mg/dL. His oral intake is improved remarkably with preferential food intake from home. His bedtime glucose was 269. The latest chemistry showed a BUN of 8, sodium 138, potassium 4.0, chloride 96, CO2 30, glucose 249 and creatinine 0.7. His creatine kinase is remarkably declining down to 1383 as noted, so at this time, we will modify his basal and bolus insulin regimen and increase the Levemir to 30 units subcutaneous at bedtime daily to start tonight. We will also increase the Humalog to *------* units subcutaneous t.i.d. before meals to start at dinnertime today as ordered. We will continue the low dose correction scale using Humalog insulin as given. We will follow and advise accordingly. Marta Sebastian MD
[2016-10-30] MEDS: Insulin Lispro (humaLOG) LOW Coverage SC SCH ×2 (04:11→11:05)
[2016-10-30] MEDS: Sodium Chloride 0.9% 1,000 ML IV SCH (04:13)
[2016-10-30 07:28] LABS: ALB/GLOB RATIO 1.3 (1.1-1.8); ALBUMIN 4.6 g/dL (3.0-4.8); BILIRUBIN,DIRECT 0.4 mg/dL (0.0-0.4); MAGNESIUM 2.1 mg/dL (1.7-2.2)
[2016-10-30] MEDS: Pantoprazole 40 mg EC Tab PO SCH (07:33)
[2016-10-30 07:43] LABS: CK-MB 0.9 ng/mL (0.0-3.6)
[2016-10-30] MEDS ORDERED: Sodium Chloride 0.9% 1,000 ML IV SCH (07:49)
--- NOTE | 2016-10-30 07:58 | CP.PCM.PN ---
Subjective - Date & Time of Evaluation Date of Evaluation: 10/30/16 Time of Evaluation: 07:15 - Subjective Subjective: Internal Medicine Progress Note for Dr. Eastman Patient seen and examined at bedside. Today is hospital day 9. No acute events overnight. Patient was seen ambulating upon entering the room. Patient states his neck pain has improved now that he is moving around a bit more. Patient states he asked the nurse to d/c the IV but states he will continue to drink plenty of fluids. Patient was made aware of how important IV fluids are to remain hydrated and also to prevent kidney damage from rhabdomyolysis. Denies paresthesias, dizziness, room-spinning, syncope/near-syncope, emesis, nausea, chest pain, shortness of breath. Current labs: wbc 7.6, H&H 14.1 and 41.2, Sodium 138, Potassium 4.0, Chloride 96 , CO2 30, BUN 8, Cr 0.7, GFR >60, Random glucose 249, AST 71, ALT 68, CPK 723. Objective - Vital Signs/Intake and Output Vital Signs (last 24 hours): Temp Pulse Resp BP Pulse Ox 98.3 F 69 20 136/91 H 98 10/29/16 16:00 10/29/16 16:00 10/29/16 16:00 10/29/16 16:00 10/29/16 16:00 Intake and Output: 10/30/16 10/30/16 06:59 18:59 Intake Total 1020 Balance 1020 - Medications Medications: Current Medications Enoxaparin Sodium (Lovenox) 40 mg SC DAILY [facility] PRN Reason: Protocol Last Admin: 10/29/16 10:34 Dose: 40 mg Ergocalciferol (Drisdol 50,000 Intl Units Cap) 1 cap PO Q7D [facility] Folic Acid (Folic Acid) 1 mg PO DAILY [facility] Last Admin: 10/29/16 10:35 Dose: 1 mg Sodium Chloride (Sodium Chloride 0.9%) 1,000 mls @ 250 mls/hr IV .Q4H [facility] Insulin Detemir (Levemir) 30 unit SC HS [facility] Last Admin: 10/29/16 21:25 Dose: 30 unit Insulin Human Lispro (Humalog Low) 0 units SC ACHS [facility] PRN Reason: Protocol Last Admin: 10/30/16 04:11 Dose: Not Given Insulin Human Lispro (Humalog) 16 units SC AC [facility] Last Admin: 10/29/16 17:33 Dose: 16 units Levetiracetam (Keppra) 500 mg PO BID [facility] Last Admin: 10/29/16 21:25 Dose: 500 mg Lidocaine (Lidoderm) 1 ea TD DAILY [facility] Last Admin: 10/29/16 10:38 Dose: Not Given Metoclopramide HCl (Reglan) 10 mg IVP Q6H [facility] Last Admin: 10/30/16 07:33 Dose: 10 mg Nicotine (Nicoderm Cq) 1 patch TD DAILY [facility] Last Admin: 10/29/16 10:39 Dose: Not Given Ondansetron HCl (Zofran Inj) 4 mg IVP Q4H [facility] PRN Reason: Nausea/Vomiting Last Admin: 10/23/16 00:39 Dose: 4 mg Pantoprazole Sodium (Protonix Ec Tab) 40 mg PO 0600 [facility] Last Admin: 10/30/16 07:33 Dose: 40 mg Thiamine HCl (Vitamin B1 Inj) 100 mg IV DAILY [facility] Last Admin: 10/29/16 10:34 Dose: 100 mg - Labs Labs: 10/29/16 06:35 10/29/16 06:35 PT 10.8 Seconds (9.9-11.8) 10/22/16 15:50 INR 1.00 (0.93-1.08) 10/22/16 15:50 APTT 27.1 Seconds (23.7-30.8) 10/22/16 15:50 - Constitutional Appears: Well, Non-toxic, No Acute Distress - Head Exam Head Exam: ATRAUMATIC, NORMAL INSPECTION, NORMOCEPHALIC - Eye Exam Eye Exam: Normal appearance Pupil Exam: NORMAL ACCOMODATION - Respiratory Exam Respiratory Exam: Clear to Ausculation Bilateral, NORMAL BREATHING PATTERN - Cardiovascular Exam Cardiovascular Exam: REGULAR RHYTHM, RRR, +S1, +S2 - GI/Abdominal Exam GI & Abdominal Exam: Soft, Normal Bowel Sounds. absent: Distended, Tenderness - Neurological Exam Neurological Exam: Alert, Awake, Normal Gait, Oriented x3 - Psychiatric Exam Psychiatric exam: Normal Affect, Normal Mood - Skin Skin Exam: Intact, Normal Color Assessment and Plan - Assessment and Plan (Free Text) Assessment: 31 year old male PMH IDDM non-compliant with medications here for DKA and possible seizure. Plan: 1.DM I: -Continue with Insulin regimen: Insulin Detemir 30 unit SC HS, Insulin Lispro 16 units SC AC, Insulin Lispro-Low SC ACHS -Continue with Metoclopramide 10 mg IVP Q6H 2.Seizure -Keppra 500 mg PO BID DVT/GI prophylaxis: continue with Lovenox 40 mg SC daily and Protonix 40 mg PO Current labs: wbc 7.6, H&H 14.1 and 41.2, Sodium 138, Potassium 4.0, Chloride 96 , CO2 30, BUN 8, Cr 0.7, GFR >60, Random glucose 249, AST 71, ALT 68, CPK 723. 1. Rhabdomyolysis - Current CPK levels have been downtrending. Currently 723. Will
[2016-10-30 08:12] VITALS: BP 143/90; PULSE 67; TEMP 97.9; O2SAT 99
[2016-10-30] MEDS: Insulin Lispro 1 UNITS/0.01 ML SC SCH (11:04)
[2016-10-30] MEDS: Lidocaine 5% Patch TD SCH (11:09)
[2016-10-30] MEDS: Enoxaparin 40 mg Syringe SC SCH (11:11)
[2016-10-30] MEDS: Thiamine 100 mg/ml Inj IV SCH (11:11)
--- NOTE | 2016-10-30 11:20 | CP.PCM.DIS ---
Provider - Provider Date of Admission: 10/22/16 18:54 Attending physician: Vikash Eastman MD Primary care physician: NO PRIMARY CARE PROVIDER Consults: Endo: Cam ICU: Brittany ID: [id number] Cardio: Christiano Neuro: Alina Mae Time Spent in preparation of Discharge (in minutes): 35 Diagnosis - Discharge Diagnosis (1) DKA (diabetic ketoacidoses) Status: Resolved Priority: High (2) Rhabdomyolysis Status: Resolved Priority: High (3) Seizure Status: Suspected Priority: Medium (4) SIRS (systemic inflammatory response syndrome) Status: Resolved Priority: Medium Hospital Course - Lab Results Lab Results: Micro Results 10/22/16 20:40 Blood Blood Culture - Final NO GROWTH AFTER 5 DAYS 10/22/16 20:40 Blood Gram Stain - Final 10/22/16 20:10 Blood Blood Culture - Final NO GROWTH AFTER 5 DAYS 10/22/16 20:10 Blood Gram Stain - Final TEST NOT PERFORMED 10/22/16 23:10 Urine Urine Culture - Final No Growth (<1,000 CFU/ML) 10/23/16 10:00 Nose MRSA Culture (Admit) - Final MRSA NOT DETECTED Most Recent Lab Values WBC 7.6 10^3/ul (4.5-11.0) D 10/29/16 06:35 RBC 4.45 10^6/uL (3.5-6.1) 10/29/16 06:35 Hgb 14.1 gm/dL (14.0-18.0) 10/29/16 06:35 Hct 41.2 % (42.0-52.0) L 10/29/16 06:35 MCV 92.6 fL (80.0-105.0) 10/29/16 06:35 MCH 31.7 pg (25.0-35.0) 10/29/16 06:35 MCHC 34.2 g/dl (31.0-37.0) 10/29/16 06:35 RDW 12.6 % (11.5-14.5) 10/29/16 06:35 Plt Count 216 10^3/uL (120.0-450.0) 10/29/16 06:35 MPV 10.3 fl (7.0-11.0) 10/29/16 06:35 Gran % 62.5 % (50.0-68.0) 10/29/16 06:35 Lymph % (Auto) 21.8 % (22.0-35.0) L 10/29/16 06:35 Merrick % (Auto) 13.1 % (1.0-6.0) H 10/29/16 06:35 Eos % (Auto) 2.5 % (1.5-5.0) 10/29/16 06:35 Baso % (Auto) 0.1 % (0.0-3.0) 10/29/16 06:35 Gran # 4.72 (1.4-6.5) 10/29/16 06:35 Lymph # 1.7 (1.2-3.4) 10/29/16 06:35 Merrick # 1.0 (0.1-0.6) H 10/29/16 06:35 Eos # 0.2 (0.0-0.7) 10/29/16 06:35 Baso # 0.01 K/mm3 (0.0-2.0) 10/29/16 06:35 PT 10.8 Seconds (9.9-11.8) 10/22/16 15:50 INR 1.00 (0.93-1.08) 10/22/16 15:50 APTT 27.1 Seconds (23.7-30.8) 10/22/16 15:50 pO2 41 mm/Hg (30-55) 10/23/16 14:10 VBG pH 7.37 (7.32-7.43) 10/23/16 14:10 VBG pCO2 43.0 (40-60) 10/23/16 14:10 VBG HCO3 24.9 mmol/l (21-28) 10/23/16 14:10 VBG Total CO2 26.2 mmol.L (22-28) 10/23/16 14:10 VBG O2 Sat (Calc) 83.0 % (40-65) H 10/23/16 14:10 VBG Base Excess -0.5 mmol/L (0.0-2.0) L 10/23/16 14:10 VBG Potassium 3.7 mmol/L (3.6-5.2) 10/23/16 14:10 Sodium 136.0 mmol/L (132-148) 10/23/16 14:10 Chloride 109.0 mmol/L (98-107) H 10/23/16 14:10 Glucose 163 mg/dl (75-110) H 10/23/16 14:10 Lactate 1.1 mmol/L (0.7-2.1) 10/23/16 14:10 FiO2 21.0 % 10/23/16 14:10 Sodium 138 mmol/L (132-148) 10/29/16 06:35 Potassium 4.0 mmol/L (3.6-5.0) 10/29/16 06:35 Chloride 96 mmol/L (98-107) L 10/29/16 06:35 Carbon Dioxide 30 mmol/L (21-33) 10/29/16 06:35 Anion Gap 16 (10-20) 10/29/16 06:35 BUN 8 mg/dL (7-21) 10/29/16 06:35 Creatinine 0.7 mg/dL (0.5-1.4) 10/29/16 06:35 Est GFR ( Amer) > 60 10/29/16 06:35 Est GFR (Non-Af Amer) > 60 10/29/16 06:35 POC Glucose (mg/dL) 311 mg/dL (65-110) H 10/24/16 13:57 Random Glucose 249 mg/dL (70-110) H 10/29/16 06:35 Hemoglobin A1c 8.9 % (4.2-6.5) H 10/22/16 15:50 Lactic Acid 0.7 mmol/L (0.7-2.1) 10/27/16 06:00 Calcium 9.3 mg/dL (8.4-10.5) 10/29/16 06:35 Phosphorus 4.2 mg/dL (2.5-4.5) 10/30/16 06:30 Magnesium 2.1 mg/dL (1.7-2.2) 10/30/16 06:30 Total Bilirubin 0.5 mg/dL (0.2-1.3) 10/30/16 06:30 Direct Bilirubin 0.4 mg/dL (0.0-0.4) 10/30/16 06:30 AST 71 U/L (15-59) H 10/30/16 06:30 ALT 68 U/L (7-56) H 10/30/16 06:30 Alkaline Phosphatase 102 U/L (38-133) 10/30/16 06:30 Ammonia < 9 umol/L (9-33) L 10/22/16 20:10 Lactate Dehydrogenase 690 U/L (333-699) 10/22/16 15:50 Total Creatine Kinase 723 U/L (35-230) H 10/30/16 06:30 CK-MB (CK-2) 0.9 ng/mL (0.0-3.6) 10/30/16 06:30 CK-MB (CK-2) % Cancelled 10/26/16 06:15 Troponin I < 0.01 ng/mL 10/27/16 06:00 Total Protein 8.1 g/dL (5.8-8.3) 10/30/16 06:30 Albumin 4.6 g/dL (3.0-4.8) 10/30/16 06:30 Globulin 3.6 gm/dL 10/30/16 06:30 Albumin/Globulin Ratio 1.3 (1.1-1.8) 10/30/16 06:30 Triglycerides 69 mg/dL (35-160) 10/23/16 06:00 Cholesterol 137 mg/dL (130-200) 10/23/16 06:00 LDL Cholesterol Direct 63 mg/dL (0-129) 10/23/16 06:00 HDL Cholesterol 66 mg/dL (29-60) H 10/23/16 06:00 Lipase 152 U/L (23-300) 10/22/16 15:50 25-OH Vitamin D Total 23.7 NG/ML (30.0-100.0) L 10/23/16 06:00 Procalcitonin 0.64 NG/ML (0.19-0.49) H 10/24/16 06:30 Thyroxine (T4) 9.1 ug/dL (5.5-11.0) 10/23/16 06:30 TSH 3rd Generation 3.14 mIU/mL (0.46-4.68) 10/23/16 06:30 Cortisol AM Sample 41.4 ug/dL (4.46-22.7) H 10/23/16 06:00 ACTH 122 pg/mL (6-50) H 10/23/16 06:00 Venous Blood Potassium 3.7 mmol/L (3.6-5.2) 10/23/16 14:10 Urine Color Yellow (YELLOW) 10/22/16 23:10 Urine Appearance Clear (CLEAR) 10/22/16 23:10 Urine pH 5.5 (4.7-8.0) 10/22/16 23:10 Ur Specific Pegram 1.020 (1.005-1.035) 10/22/16 23:10 Urine Protein Negative mg/dL (<30 mg/dL) 10/22/16 23:10 Urine Glucose (UA) 500 mg/dL (NEGATIVE) H 10/22/16 23:10 Urine Ketones 15 mg/dL (NEGATIVE) H 10/22/16 23:10 Urine Blood Negative (NEGATIVE) 10/22/16 23:10 Urine Nitrate Negative (NEGATIVE) 10/22/16 23:10 Urine Bilirubin Negative (NEGATIVE) 10/22/16 23:10 Urine Urobilinogen 0.2 E.U./dL (<1 E.U./dL) 10/22/16 23:10 Ur Leukocyte Esterase Negative Merly/uL (NEGATIVE) 10/22/16 23:10 Urine Opiates Screen Positive (NEGATIVE) H 10/22/16 23:10 Urine Methadone Screen Negative (NEGATIVE) 10/22/16 23:10 Ur Barbiturates Screen Negative (NEGATIVE) 10/22/16 23:10 Ur Phencyclidine Scrn Negative (NEGATIVE) 10/22/16 23:10 Ur Amphetamines Screen Negative (NEGATIVE) 10/22/16 23:10 U Benzodiazepines Scrn Negative (NEGATIVE) 10/22/16 23:10 U Oth Cocaine Metabols Negative (NEGATIVE) 10/22/16 23:10 U Cannabinoids Screen Positive (NEGATIVE) H 10/22/16 23:10 Hepatitis A IgM Ab Negative (NEGATIVE) 10/27/16 08:10 Hep Bs Antigen Negative (NEGATIVE) 10/27/16 08:10 Hep B Core IgM Ab Negative (NEGATIVE) 10/27/16 08:10 Hepatitis C Antibody Negative (NEGATIVE) 10/27/16 08:10 HIV 1&2 Ag/Ab, 4th Gen Nonreactive (Nonreactive) 10/23/16 07:33 - Hospital Course Hospital Course: This is a 31 yo M with PMH of IDDM who presented to [facility] s/p syncopal episode with fall and head trauma (witnessed) and was found to be in DKA and had a suspected witnessed seizure. He later developed rhabdomyolysis, with his CK rising to greater than 10,000 prior to improvement and resolution with aggressive IV fluid hydration. While here, he was seen by Cardio, ID, Endo, ICU , and Neuro. Patient will be discharged on a new with-meals and nightly insulin as per Endo's recs. As per Cardio, the syncope is unlikely to be cardiac in origin, and no acute intervention was needed. As per Neuro, patient is to have a repeat MRI of the cervical spine in 6 weeks. EEG was negative for seizure, and no further neurological work-up is needed. Patient was given scripts for his new insulin regimen, keppra 500mg PO BID for seizure ppx, and folic acid/Vit D for his deficiencies. He was told to fill and take the scripts as prescribed, to follow up with his PMD within 1 week, and to follow up with Neurology as an outpatient. He expressed understanding and agreement with these instructions, and all questions were answered to his satisfaction. Patient was then discharged. Patient seen, reviewed, and discussed with attending, Dr. Eastman. Discharge Exam - Additional Findings Additional findings: - Constitutional Appears: Non-toxic, No Acute Distress, Resting comfortably in chair - Head Exam Healed contusion along anterior of head, no erythema visible through scalp, otherwise Normocephalic - Eye Exam Eye Exam: EOMI, Normal appearance. absent: Conjunctival injection, Scleral icterus Pupil Exam: absent: Irregular, Unequal - ENT Exam ENT Exam: Mucous Membranes Moist. absent: Mucous Membranes Dry - Neck Exam Neck Exam: Tenderness (mild tenderness along cervical paraspinals only on palpation), Full ROM without overt tenderness or guarding. absent: Lymphadenopathy, Thyromegaly - Respiratory Exam Respiratory Exam: Clear to Ausculation Bilateral, NORMAL BREATHING PATTERN. absent: Accessory Muscle Use, Chest Wall Tenderness, Decreased Breath Sounds, Rales, Rhonchi, Wheezes - Cardiovascular Exam Cardiovascular Exam: REGULAR RHYTHM, RRR, +S1, +S2. absent: Bradycardia, Tachycardia, Irregular Rhythm, JVD, +S4 - GI/Abdominal Exam GI & Abdominal Exam: Soft, Normal Bowel Sounds. absent: Distended, Firm, Rigid , Tenderness, Diminished Bowel Sounds, Hyperactive Bowel Sounds, Hypoactive Bowel Sounds - Extremities Exam Extremities Exam: Normal Capillary Refill, Normal Inspection. absent: Calf Tenderness, Joint Swelling, Pedal Edema, Tenderness - Neurological Exam Neurological Exam: awake and alert, following commands appropriately, spontaneous movement of all extremities, no gross motor deficit - Psychiatric Exam Psychiatric exam: Normal Affect, Normal Mood - Skin Skin Exam: Dry, Intact (some scattered abrasions on bilateral LE at knees, otherwise intact), Normal Color, Warm Discharge Plan - Discharge Medications Prescriptions: Ergocalciferol [Drisdol 50,000 Intl Units Cap] 1 cap PO Q7D #14 cap Folic Acid 1 mg PO DAILY #30 tab Insulin Detemir [Levemir] 30 unit SC HS #100 unit Insulin Lispro [humALOG] 16 units SC ACTID #100 ml levETIRAcetam [Keppra] 500 mg PO BID #60 tab Lidocaine 5% [Lidoderm] 1 ea TD DAILY #30 patch Nicotine 21 mg/24 hr [Nicoderm Cq] 1 patch TD DAILY #30 patch Pantoprazole [Protonix EC Tab] 40 mg PO 0600 #30 ect - Follow Up Plan Condition: FAIR Disposition: HOME/ ROUTINE Instructions: How to Stop Smoking (DC), Diabetic Gastroparesis (DC), Pneumococcal Vaccine for Adults (DC), Rhabdomyolysis (DC), Diabetic Ketoacidosis (DC), Diabetes Mellitus Type 1 in Adults (DC), Diabetic Hypoglycemia (DC), Meal Planning with Diabetes Exchanges (DC), New-Onset Seizure in Adults (DC), Degenerative Disc Disease (DC) Additional Instructions: DISCHARGE HOME FOLLOW UP WITHIN 1 WEEK FOLLOW UP WITHIN [address]MUSAID BUENROSTRO WITHIN1 WEEK Referrals: Marta Sebastian MD [Medical Doctor] - Vikash Eastman MD [Staff Provider] - Rea Mae MD [Staff Provider] -
--- NOTE | 2016-10-30 14:10 | PN ---
DATE: 10/30/2016 SUBJECTIVE: The patient seen in bed in room 560, bed 2. The patient was seen early this morning. No fevers. No chills. No nausea. PHYSICAL EXAMINATION VITAL SIGNS: Temperature is 97, blood pressure 140/90, respiratory rate of 18. HEENT: Unremarkable. NECK: Supple. LUNGS: Decreased breath sounds. HEART: Normal S1 and S2. ABDOMEN: Soft, nontender. LABORATORY DATA: Reveals a white count of 7.6, hemoglobin of 14, platelets of 216. Chemistry revealed the patient's BUN of 8, creatinine of 0.5. Urinalysis is noted. Serology is noted. HIV is negative. Microbiology reveals cultures are negative. ASSESSMENT AND PLAN: A 31-year-old male who was seen early this morning with systemic inflammatory response syndrome, inflammatory bowel disease, hyperglycemia. No evidence of sepsis. Cultures negative. Off of antibiotics. We will follow with you. Moustapha Zapata MD
--- NOTE | 2016-10-30 19:57 | DS ---
SUBJECTIVE: The patient was seen in room #560, bed #2. The patient is out of bed to chair. The patient offers no complaint. The patient says that he is feeling 100% better since the day of arrival. A 13-system review was done which was negative. PHYSICAL EXAMINATION: VITAL SIGNS: T-max is 98.3 to 98.7, heart rate 67, blood pressure 143/90, 119/72, 149/94, 136/90 and 149/84, average blood pressure systolic 130, respirations 20, O2 sat 99% to 98%. HEAD: Normocephalic and atraumatic. HEENT: Shows pink conjunctivae, anicteric sclerae. NECK: No neck rigidity. CHEST: Symmetrical. LUNGS: Show no rales, crackles, or wheezing. CARDIOVASCULAR: S1 and S2. Regular rhythm. ABDOMEN: Soft, positive bowel sounds. GENITALIA: Male. RECTAL: Deferred. EXTREMITIES: Show no pitting edema. No calf tenderness. No Homans signs. NEUROLOGIC: The patient is alert, awake, responsive, is able to move upper and lower extremity. No neck rigidity noted. Full range of motion noted. VASCULAR: Palpable pulses. CRANIAL NERVES: II through XII intact. GAIT: Independent. LABORATORY DATA: Diagnostics of 10/30/2016 were reviewed. Sodium 138, potassium 4.0, AST is down to 71, ALT 68, CPK is 723, rest of the LFTs are normal. Hepatitis A, B, C and HIV negative. Blood, urine cultures, MRSA negative. ASSESSMENT: 1. Status post diabetic ketoacidosis. 2. Systemic inflammatory response syndrome. 3. Gallbladder polyp versus adenomyomatosis of the gallbladder. 4. Thoracic 4 mild edema within the superior aspect and T3 microtrabecular injury with slight deformity and T4 anterior, superior endplates stature loss with minimal concave appearance of the superior endplate of T3. 5. T4-T5 and T3-T4 mild broad base disk bulge. 6. C6-C7 disk desiccation with broad-based disk bulge indenting the ventral surface, broad-based disk bulge C5-C6. 7. 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 8. History of marijuana abuse and nicotine dependence. 9. Fecal stasis with constipation. 10. Left ventricular ejection fraction of 55%. 11. Trace tricuspid regurgitation with right ventricular systolic pressure of 32 mmHg. 12. Leukocytosis with granulocytosis. 13. Diabetic ketoacidosis (resolved). 14. Uncontrolled insulin requiring diabetes mellitus with hemoglobin A1c of 8.9. 15. Lactic acidosis. 16. Transaminitis, etiology undetermined. 17. Severe symptomatic rhabdomyolysis. 18. Hypokalemia. 19. Glycosuria. 20. Urine drug screen positive for marijuana. PLAN: At this time, the patient is cleared for discharge. DISCHARGE MEDICATIONS: 1. Drisdol 50,000 weekly. 2. Folic acid 1 mg daily. 3. Levemir increased to 30 at bedtime. 4. Humalog 16 units with breakfast, lunch and dinner. 5. Keppra 500 mg twice a day. 6. Lidoderm 5% patch. 7. Nicotine patch 21 mg daily. 8. Protonix 40 mg daily. The patient is discharged home. The patient is advised discharge followup with Dr. Eastman within 1 week, Dr. Rea Mae within 1 week, Dr. Marta Sebastian within 1 week. The patient's discharge medications as dictated above. The patient was advised to bring all medications at the office visit. During this hospitalization, the patient was extensively explained about the details of his medical condition, diagnosis, treatment plan, management plan was also explained to the patient. In addition, the patient was advised outpatient endocrinology, ophthalmology and podiatry followup. Vikash Eastman MD
--- NOTE | 2016-10-31 00:31 | PN ---
ENDO FOLLOWUP NOTE This is a 31-year-old male with recent uncontrolled type 1 insulin dependent diabetes, presenting here with dehydration and diabetic ketoacidosis with marked hyperglycemic accelerations as noted thereof. He received vigorous IV hydration and intensive insulin therapy with remarkable improvement as noted thereof. His oral intake has been variable with suboptimal meal portions and actually only in the last 2 days or so has improved oral intake because of preferential food intake from home. His glycemic values have ranged from 61-115 and 169 mg/dL. His latest chemistry showed a BUN of 8, sodium 138, potassium 4.0, chloride 96, CO2 of 30, glucose 249, creatinine 0.7. His CK is almost declined remarkably and the last one is 1383. So at this time, we recommend eventual discharge, on the same basal and bolus insulin regimen as recommended and ordered with Levemir given at 30 units subcutaneous at bedtime daily and Humalog given at 16 units subcutaneous t.i.d. before meals as ordered. We will titrate incremental as indicated to optimize metabolic control. He will follow with his medical doctor for outpatient diabetic management. Marta Sebastian MD
== END 2016-10-30 12:36 | disposition home or self-care (01) | DRG 638 ==
LOC: ED 15:34 → ERH 18:54 → 2RNO 22:41 → CCU 10-23 09:59 → 5RNO 10-24 14:16
PROVIDERS: ADMIT Internal Medicine; ATTEND Internal Medicine
DX: E10.10 Type 1 diabetes mellitus with ketoacidosis without coma (principal); M62.82 Rhabdomyolysis; R65.10 Systemic inflammatory response syndrome (SIRS) of non-infectious origin without acute organ dysfunction; E10.649 Type 1 diabetes mellitus with hypoglycemia without coma; G93.89 Other specified disorders of brain; E86.0 Dehydration; S06.9X9A Unspecified intracranial injury with loss of consciousness of unspecified duration, initial encounter; W19.XXXA Unspecified fall, initial encounter; R56.9 Unspecified convulsions; Z79.4 Long term (current) use of insulin; S00.03XA Contusion of scalp, initial encounter; Y92.89 Other specified places as the place of occurrence of the external cause; H71.91 Unspecified cholesteatoma, right ear; K59.00 Constipation, unspecified; R74.0 Nonspecific elevation of levels of transaminase and lactic acid dehydrogenase [LDH]; E87.6 Hypokalemia; R81 Glycosuria; F17.210 Nicotine dependence, cigarettes, uncomplicated; E03.9 Hypothyroidism, unspecified; Z83.3 Family history of diabetes mellitus; Z80.1 Family history of malignant neoplasm of trachea, bronchus and lung; R06.82 Tachypnea, not elsewhere classified; Y99.0 Civilian activity done for income or pay; Z91.14 Patient's other noncompliance with medication regimen; F12.10 Cannabis abuse, uncomplicated; M54.9 Dorsalgia, unspecified; D64.9 Anemia, unspecified; R55 Syncope and collapse; E55.9 Vitamin D deficiency, unspecified; M62.838 Other muscle spasm; R74.8 Abnormal levels of other serum enzymes; M25.519 Pain in unspecified shoulder; M50.30 Other cervical disc degeneration, unspecified cervical region; K31.84 Gastroparesis; K21.9 Gastro-esophageal reflux disease without esophagitis; E10.43 Type 1 diabetes mellitus with diabetic autonomic (poly)neuropathy